=== PATIENT | male | born 1960 | race Caucasian/White ===

== ENCOUNTER 2017-01-14 20:56 | Inpatient (IN) | payer MEDICAID ==
[~2017-01-14] VITALS: Ht 177.8 cm; Wt 136.9 kg
[~2017-01-14 20:56] MED LIST: CEFD300C PO
[2017-01-14] MEDS ORDERED: DILTIAZEM HCL 25 MG/5 ML VIAL IV ONE ×2 (21:15→21:30)
[2017-01-14] MEDS ORDERED: SODIUM CHLORIDE 0.9% FLUSH 10 ML FLUSH IVF PRN (21:15)
[2017-01-14 21:25] VITALS: BP_SYST 123; BP_SYST 146; BP_DIAS 100; BP_DIAS 84; PULSE 117; RESP 33; O2SAT 95
[2017-01-14 21:30] VITALS: O2SAT 97
[2017-01-14] MEDS ORDERED: DILTIAZEM INJ 125 MG in SODIUM CHLORIDE 0.9% INJ 100 ML IV PRN (21:30)
--- NOTE | 2017-01-14 21:54 | RADRPT ---
EXAM DATE/TIME: 01/14/2017 21:39 [place] COMPARISON: No previous studies available for comparison. INDICATIONS : Shortness of breath. MEDICAL HISTORY : Diabetes mellitus type II. SURGICAL HISTORY : Gastric bypass. ENCOUNTER: Initial ACUITY: 1 day PAIN SCORE: 0/10 LOCATION: Bilateral chest FINDINGS: A single view of the chest demonstrates the lungs to be symmetrically aerated without evidence of mas s, infiltrate or effusion. The cardiomediastinal contours are unremarkable. Osseous structures are intact. Prominence of the basilar markings which may be secondary to the large size of the patient an d hypoaeration. CONCLUSION: Prominent basilar markings possibly secondary to patient being quite large and hypoaeration Henrry Whittington MD on January 14, 2017 at 21:51 Board Certified Radiologist. This report was verified electronically.
[2017-01-14 21:55] LABS: AUTOMATED NEUTROPHIL # 9.5 TH/MM3 (1.8-7.7); BASOPHIL % 0.2 % (0.0-2.0); EOSINOPHIL % 0.3 % (0.0-4.0); HEMATOCRIT 51.3 % (39.0-51.0); HEMO FLAGS DIFF FINAL; LYMPH % 10.5 % (9.0-44.0); LYMPHOCYTE # 1.2 TH/MM3 (1.0-4.8); MEAN CELL VOLUME 84.3 FL (80.0-100.0); MEAN CORPUSCULAR HEMOGLOBIN 27.4 PG (27.0-34.0); MEAN CORPUSCULAR HGB CONC 32.5 % (32.0-36.0); MONO % 7.5 % (0.0-8.0); NEUT % 81.5 % (16.0-70.0); PLATELET COUNT 196 TH/MM3 (150-450); RED BLOOD COUNT 6.09 MIL/MM3 (4.50-5.90); RED CELL DISTRIBUTION WIDTH 16.5 % (11.6-17.2); WHITE BLOOD COUNT 11.7 TH/MM3 (4.0-11.0)
[2017-01-14 22:05] LABS: APTT (PATIENT) 30.1 SEC (24.3-30.1); INTERNATIONAL NORMALIZED RATIO 1.4 RATIO; PROTHROMBIN TIME - PATIENT 15.3 SEC (9.8-11.6)
[2017-01-14 22:20] LABS: BICARBONATE 30.3 MEQ/L (21.0-32.0); MAGNESIUM 1.8 MG/DL (1.5-2.5); POTASSIUM 4.3 MEQ/L (3.5-5.1)
[2017-01-14 22:31] VITALS: BP 110/71; PULSE 110; RESP 28; O2SAT 97
[2017-01-14] MEDS ORDERED: RESP: ALBUTEROL 2.5 MG/IPRATROPIUM 0.5 MG NEB (SCH) NEB ONE (23:00)
[2017-01-14 23:02] VITALS: O2SAT 98
[2017-01-14 23:43] LABS: LACTIC ACID GHOST NOT REPORTABLE
[2017-01-14] MEDS ORDERED: ASPIRIN 81 MG CHEW TAB CHEW ONE (23:45)
--- NOTE | 2017-01-14 23:52 | PD ---
HPI Chief Complaint: Respiratory Distress Time Seen by Provider: 21:12 Travel History International Travel<30 days: No Contact w/Intl Traveler<30days: No Traveled to known affect area: No History of Present Illness HPI Patient is a 56-year-old male who comes in complaining of shortness of breath. Patient states this has been going on for "two years," however, his family says he became acutely worse today. He has a history of A. fib and is on blood thinners. He reports being in and out of the hospital recently due to cellulitis of his legs and what sounds like CHF. He is currently on antibiotics. He says he has been taking his medications as directed. He has noticed increased swelling of his legs. He denies chest pain. He does have COPD and he says he used his albuterol this morning. He has not had any fever or chills. PFSH Past Medical History Atrial Fibrillation: Yes Cardiovascular Problems: Yes Congestive Heart Failure: Yes COPD: Yes Hypertension: Yes Past Surgical History Abdominal Surgery: Yes (gastric bypass) Social History Tobacco Use: No Allergies-Medications (Allergen,Severity, Reaction): Coded Allergies: No Known Allergies (Verified , 10/18/03) Reported Meds & Prescriptions Reported Meds & Active Scripts Active Review of Systems Except as stated in HPI: all other systems reviewed are Neg General / Constitutional: No: Fever, Chills HENT: No: Headaches, Lightheadedness Cardiovascular: Positive: Palpitations, No: Chest Pain or Discomfort Respiratory: Positive: Shortness of Breath Gastrointestinal: No: Nausea, Vomiting Musculoskeletal: Positive: Edema, Pain Skin: Positive Lesions Neurologic: No: Syncope Physical Exam Narrative GENERAL: Awake and alert, in moderate respiratory distress. SKIN: Stasis ulcers to both shins. There is some surrounding erythema, but no warmth. HEAD: Atraumatic. Normocephalic. EYES: Pupils equal and round. No scleral icterus. ENT: Mucous membranes pink and moist. NECK: Trachea midline. No JVD. CARDIOVASCULAR: Regular rate and rhythm. No murmur appreciated. RESPIRATORY: Kidney, accessory muscle use. No wheezes on the left side. Breath sounds equal bilaterally. GASTROINTESTINAL: Abdomen soft, non-tender, nondistended. MUSCULOSKELETAL: No obvious deformities. No clubbing. No cyanosis. 2+ pitting edema bilateral lower extremities. NEUROLOGICAL: Awake and alert. No obvious cranial nerve deficits. Motor grossly within normal limits. Normal speech. PSYCHIATRIC: Appropriate mood and affect; insight and judgment normal. Data Data Last Documented VS Vital Signs Date Time Temp Pulse Resp B/P (MAP) Pulse Ox O2 Delivery O2 Flow Rate FiO2 01/14/17 23:57 97 Nasal Cannula 3.00 01/14/17 23:02 30 01/14/17 22:31 110 28 110/71 (84) Orders Orders Electrocardiogram (01/14/17 21:12) Basic Metabolic Panel (Bmp) (01/14/17 21:12) B-Type Natriuretic Peptide (01/14/17 21:12) Ckmb (Isoenzyme) Profile (01/14/17 21:12) Complete Blood Count With Diff (01/14/17 21:12) Magnesium (Mg) (01/14/17 21:12) Prothrombin Time / Inr (Pt) (01/14/17 21:12) Act Partial Throm Time (Ptt) (01/14/17 21:12) Troponin I (01/14/17 21:12) Chest, Single Ap (01/14/17 21:12) Ecg Monitoring (01/14/17 21:12) Bilateral Bp Monitoring (01/14/17 21:12) Iv Access Insert/Monitor (01/14/17 21:12) Oximetry (01/14/17 21:12) Oxygen Administration (01/14/17 21:12) Sodium Chloride 0.9% Flush (Ns Flush) (01/14/17 21:15) Diltiazem Inj (Cardizem Inj) (01/14/17 21:15) Lactic Acid Sepsis Protocol (01/14/17 21:15) Blood Culture (01/14/17 21:15) Diltiazem Inj (Cardizem Inj) (01/14/17 21:30) Vital Signs (Adult) Q15MX4,Q4H (01/14/17 21:28) Portfolio Analyst / Telemetry GEORGE.Q8H (01/14/17 21:28) Cardiac Rhythm GEORGE.Q8H (01/14/17 21:28) Notify Dr: Other (01/14/17 21:28) Diltiazem Inj (Cardizem Inj) (01/14/17 21:30) Resp Bipap / Cpap Non Invas Vt (01/14/17 ) Electrocardiogram (01/14/17 21:49) Albuterol-Ipratropium Neb (Duoneb Neb) (01/14/17 23:00) Aspirin Chew (Aspirin Chew) (01/14/17 23:45) Admit Order (Ed Use Only) (01/14/17 ) Vital Signs (Adult) Q1H (01/14/17 23:55) Activity Bed Rest (01/14/17 23:55) Labs Laboratory Tests Test 01/14/17 21:10 White Blood Count 11.7 TH/MM3 Red Blood Count 6.09 MIL/MM3 Hemoglobin 16.7 GM/DL Hematocrit 51.3 % Mean Corpuscular Volume 84.3 FL Mean Corpuscular Hemoglobin 27.4 PG Mean Corpuscular Hemoglobin Concent 32.5 % Red Cell Distribution Width 16.5 % Platelet Count 196 TH/MM3 Mean Platelet Volume 9.0 FL Neutrophils (%) (Auto) 81.5 % Lymphocytes (%) (Auto) 10.5 % Monocytes (%) (Auto) 7.5 % Eosinophils (%) (Auto) 0.3 % Basophils (%) (Auto) 0.2 % Neutrophils # (Auto) 9.5 TH/MM3 Lymphocytes # (Auto) 1.2 TH/MM3 Monocytes # (Auto) 0.9 TH/MM3 Eosinophils # (Auto) 0.0 TH/MM3 Basophils # (Auto) 0.0 TH/MM3 CBC Comment DIFF FINAL Differential Comment Prothrombin Time 15.3 SEC Prothromb Time International Ratio 1.4 RATIO Activated Partial Thromboplast Time 30.1 SEC Blood Urea Nitrogen 19 MG/DL Creatinine 0.98 MG/DL Random Glucose 212 MG/DL Calcium Level 8.9 MG/DL Magnesium Level 1.8 MG/DL Sodium Level 142 MEQ/L Potassium Level 4.3 MEQ/L Chloride Level 105 MEQ/L Carbon Dioxide Level 30.3 MEQ/L Anion Gap 7 MEQ/L Estimat Glomerular Filtration Rate 79 ML/MIN Lactic Acid Level 2.4 mmol/L Total Creatine Kinase 64 U/L Troponin I 0.14 NG/ML B-Type Natriuretic Peptide 655 PG/ML MDM Medical Decision Making Medical Screen Exam Complete: Yes Emergency Medical Condition: Yes Medical Record Reviewed: Yes Interpretation(s) ECG shows A. fib with RVR at 150. Differential Diagnosis ACS versus A. fib versus electrolyte abnormality versus COPD exacerbation Narrative Course Patient is a 56-year-old male comes in due to shortness of breath. Patient is obviously in respiratory distress on arrival. Was found to be in A. fib with RVR. IV was established, patient was connected to the catheter builder. Patient was given Cardizem with improvement of his rate. His right started to go back up, given a second bolus of Cardizem and started on a Cardizem drip. Patient also started on BiPAP. His breathing and pulse rate improved with his medications and BiPAP. Labs show a troponin of 0.14. Patient is already on blood thinners. He was given aspirin. Given 1 DuoNeb through the BiPAP. He'll be admitted for further management. Critical Care Narrative Aggregate critical care time was 40 minutes. Time to perform other separately billable procedures was not included in the critical care time. My time did not include minutes spent treating any other patients simultaneously or on activities that did not directly contribute to the patient's treatment. The services I provided to this patient were to treat and/or prevent clinically significant deterioration that could result in: Serious illness or I provided critical care services requiring my management, as noted below: Chart data review, documentation time, medication orders and management, vital sign assessments/reviewing monitor data, ordering and reviewing lab tests, ordering and interpreting/reviewing x-rays and diagnostic studies, care of the patient and discussion of the patient with the admitting physicians. Diagnosis Primary Impression: Atrial fibrillation with RVR Additional Impressions: COPD exacerbation Respiratory distress Elevated troponin Admitting Information Admitting Physician Requests: Admit Hilda Hernandez MD Jan 14, 2017 23:52
[2017-01-14 23:57] VITALS: O2SAT 97
[2017-01-15] VITALS (15 sets, daily range): BP systolic 96–124; BP diastolic 57–78; PULSE 69–94; RESP 19–25; TEMP 97.5–98.2; O2SAT 93–98
[2017-01-15] MEDS ORDERED: SODIUM CHLORIDE 0.9% FLUSH 10 ML FLUSH IV FLUSH PRN (00:15)
[2017-01-15] MEDS ORDERED: NALOXONE HCL 0.4 MG/ML AMP IV PUSH PRN (00:15)
[2017-01-15] MEDS ORDERED: FURO40TA PO (00:33)
[2017-01-15] MEDS ORDERED: POTA10TA2 PO (00:33)
[2017-01-15] MEDS ORDERED: XARE20TA PO (00:33)
[2017-01-15] MEDS ORDERED: HUMA100I3 SQ (00:33)
[2017-01-15] MEDS ORDERED: ASPI-110 PO (00:33)
[2017-01-15] MEDS ORDERED: IPRA0.02 NEB (00:33)
[2017-01-15] MEDS ORDERED: ALBU0.08 INH (00:33)
[2017-01-15] MEDS ORDERED: NITR1SUB3 SL (00:33)
[2017-01-15] MEDS ORDERED: METO100T PO (00:33)
[2017-01-15] MEDS ORDERED: ADVA250A INH (00:33)
[2017-01-15] MEDS ORDERED: DOXY1TAB13 PO (00:35)
--- NOTE | 2017-01-15 00:39 | HHI.HP ---
HPI Service [facility] Primary Care Physician Gentry Alexandra D.O. Admission Diagnosis Afib with RVR, COPD exacerbation, troponin elevated Diagnoses: (1) Atrial fibrillation with RVR (2) COPD exacerbation Chief Complaint: chest pain and shortness of breath Travel History International Travel<30 Days: No Contact w/Intl Traveler <30 Da: No Traveled to Known Affected Are: No History of Present Illness Written by Tatum Miramontes, acting as scribe for Dr. Gilmore on 01/15/17 at 00:37. The patient came into ED in severe respiratory distress and was wheezing on presentation and placed temporarily on BiPAP in ED. He is seen in ER on [place] with improvement in symptoms. The patient was at [facility] in [place] for 4 days for CHF/pneumonia, was discharged 3 days ago. He states he had chest pain, palpitations this morning. The pain radiated down his arms and was accompanied by diaphoresis and shortness of breath. He reports severe dyspnea with minimal exertion. He states he was wheezing all day with "some" cough and mucous production. He reports bilateral lower extremity pain and swelling with bilateral chronic johnson wounds and reddish discoloration from mid-johnson to feet- MRSA +. The patient reports having an IVC filter placed. He says he was given antibiotics at [facility]. Attempted Thoracentesis at [facility] 2 days ago but not enough fluid per patient. He reports nausea and diarrhea x 2 episodes since yesterday. He denies abdominal pain. The patient states he doesn't know what his EF is. records from [facility] show 01/06/17 imaging results - CT PA with no PE, moderate to large right pleural effusion, CXR with pulmonary edema - no echocardiogram noted Review of Systems Except as stated in HPI: all other systems reviewed are Neg Past Family Social History Past Medical History Type 2 DM, insulin treated CHF Atrial fibrillation on Xarelto COPD KATHERINE Right DVT Chronic ulcers bilateral lower extremities - + MRSA PE Aortic aneurysm Denies CAD, liver problems, kidney problems, CVA, seizures, thyroid problems, or prostate problems . Past Surgical History Gastric bypass in the 80's Cardiac catheterization with no coronary stenosis . Reported Medications Reported Meds & Active Scripts Active Reported Doxycycline Monohydrate (Doxycycline (Monohydrate)) 100 Mg Tab 100 Mg PO BID Ipratropium Neb (Ipratropium [place]) 0.5 Mg/2.5 Ml Amp 0.5 Mg NEB QID NEB PRN Albuterol Neb (Albuterol Sulfate) 2.5 Mg/3 Ml Neb 2.5 Mg INH QID NEB albuterol-ibratropium Humalog Kwikpen Pen Inj (Insulin Lispro (Human) Inj) 300 Unit/3 Ml Pen 15 Units SQ TIDAC Aspirin 81 (Aspirin) 81 Mg Tabdr 81 Mg PO DAILY Advair Diskus Inh (Fluticasone-Salmeterol Inh) 250-50 Mcg/Blist Aer 1 Puff INH BID Rinse mouth after use. Nitroglycerin SL (Nitroglycerin) 0.4 Mg Subl 0.4 Mg SL DIRECTED PRN ONE TABLET UNDER THE TONGUE NEEDED FOR CHEST PAIN, MAY REPEAT EVERY FIVE MINUTES FOR A TOTAL OF 3 DOSES OR CALL 911 IF NO RELIEF Metoprolol Tartrate 100 Mg Tab 100 Mg PO BID Potassium Chloride ER (Potassium Chloride) 10 Meq Tab 10 Meq PO DAILY Xarelto (Rivaroxaban) 20 Mg Tab 20 Mg PO DAILY Cefdinir 300 Mg Cap 300 Mg PO BID 10 Days Furosemide 40 Mg Tab 40 Mg PO BID Allergies: Coded Allergies: No Known Allergies (Verified , 10/18/03) Active Ordered Medications Current Medications Sodium Chloride (NS Flush) 2 ml UNSCH PRN IVF FLUSH AFTER USING IV ACCESS Last administered on 01/14/17 22:25; Start 01/14/17 at 21:15; Stop 01/15/17 at 00 :10; Status DC Diltiazem HCl (Cardizem Inj) 20 mg ONCE ONCE IV Last administered on 21:22; Start 01/14/17 at 21:15; Stop 01/14/17 at 21:16; Status DC Diltiazem HCl (Cardizem Inj) 30 mg ONCE ONCE IV Last administered on 21:25; Start 01/14/17 at 21:30; Stop 01/14/17 at 21:31; Status DC Diltiazem HCl 125 mg/Sodium Chloride 125 ml @ 5 mls/hr TITRATE PRN IV Tachycardia Last administered on 01/14/17t 22:25; Start 01/14/17 at 21:30 Albuterol/ Ipratropium (Duoneb Neb) 1 ampule ONCE ONCE NEB Last administered on 01/14/17t 23:00; Start 01/14/17 at 23:00; Stop 01/14/17 at 23:01; Status DC Aspirin (Aspirin Chew) 324 mg ONCE ONCE CHEW ; Start 01/14/17 at 23:45; Stop 01/14/17 at 23:46; Status DC Sodium Chloride (NS Flush) 2 ml UNSCH PRN IV FLUSH FLUSH AFTER USING IV ACCESS ; Start 01/15/17 at 00:15 Sodium Chloride (NS Flush) 2 ml BID IV FLUSH ; Start 01/15/17 at 09:00 Naloxone HCl (Narcan Inj) 0.4 mg UNSCH PRN IV PUSH SEE LABEL COMMENTS; Start 01/15/17 at 00:15 Albuterol/ Ipratropium (Duoneb Neb) 1 ampule Q6HR NEB NEB ; Start 01/15/17 at 04:00 Albuterol/ Ipratropium (Duoneb Neb) 1 ampule Q2HR NEB PRN NEB wheezing; Start 01/15/17 at 00:15 . Family History Mother with diabetes, hypertension Father with OH - 1st one age 32-33 y/o 2nd OH age 36 - 27 y/o, diabetes, right leg DVT, age 42 y/o . Social History Alcohol: Denies heavy drinking Alcohol: Denies drug abuse Tobacco: smokes cigarettes 1/2 PPD . Physical Exam Vital Signs Vital Signs Date Time Temp Pulse Resp B/P (MAP) Pulse Ox O2 Delivery O2 Flow Rate FiO2 01/14/17 23:57 97 Nasal Cannula 3.00 01/14/17 23:02 98 30 01/14/17 22:31 110 28 110/71 (84) 97 BiPAP 01/14/17 22:25 111 135/84 01/14/17 21:30 97 30 01/14/17 21:25 95 Nasal Cannula 2.00 01/14/17 21:25 117 33 146/100 (115) 95 Nasal Cannula 2.00 123/84 (97) Physical Exam GENERAL: This is a morbidly obese male patient, in no apparent distress. SKIN: No rashes. Bilateral lower extremities erythematous from mid johnson to feet , multiple chronic-appearing wounds bilateral shins. HEAD: Atraumatic. Normocephalic. No temporal or scalp tenderness. EYES: No scleral icterus. No injection or drainage. ENT: Nose without bleeding, purulent drainage. Airway patent. NECK: Trachea midline. No JVD or lymphadenopathy. Supple, nontender, no meningeal signs. CARDIOVASCULAR: Irregularly irregular without murmurs, gallops, or rubs. 3+ edema bilateral lower extremities. RESPIRATORY: Breath sounds diminished, equal bilaterally. No wheezes, rales, or rhonchi. GASTROINTESTINAL: Abdomen soft, non-tender, nondistended. No guarding. MUSCULOSKELETAL: Extremities without clubbing, cyanosis, or edema. No calf tenderness. NEUROLOGICAL: Awake and alert. Motor and sensory grossly within normal limits. Normal speech. . Laboratory Laboratory Tests Test 01/14/17 21:10 White Blood Count 11.7 Red Blood Count 6.09 Hemoglobin 16.7 Hematocrit 51.3 Mean Corpuscular Volume 84.3 Mean Corpuscular Hemoglobin 27.4 Mean Corpuscular Hemoglobin Concent 32.5 Red Cell Distribution Width 16.5 Platelet Count 196 Mean Platelet Volume 9.0 Neutrophils (%) (Auto) 81.5 Lymphocytes (%) (Auto) 10.5 Monocytes (%) (Auto) 7.5 Eosinophils (%) (Auto) 0.3 Basophils (%) (Auto) 0.2 Neutrophils # (Auto) 9.5 Lymphocytes # (Auto) 1.2 Monocytes # (Auto) 0.9 Eosinophils # (Auto) 0.0 Basophils # (Auto) 0.0 CBC Comment DIFF FINAL Differential Comment Prothrombin Time 15.3 Prothromb Time International Ratio 1.4 Activated Partial Thromboplast Time 30.1 Blood Urea Nitrogen 19 Creatinine 0.98 Random Glucose 212 Calcium Level 8.9 Magnesium Level 1.8 Sodium Level 142 Potassium Level 4.3 Chloride Level 105 Carbon Dioxide Level 30.3 Anion Gap 7 Estimat Glomerular Filtration Rate 79 Lactic Acid Level 2.4 Total Creatine Kinase 64 Troponin I 0.14 B-Type Natriuretic Peptide 655 Date/Time Source Procedure Growth Status 01/14/17 21:30 Blood Peripheral Aerobic Blood Culture Pending Received 01/14/17 21:30 Blood Peripheral Anaerobic Blood Culture Pending Received Result Diagram: 01/14/17210901/14/172109 Imaging Last Impressions Chest X-Ray 01/14/172111 Signed Impressions: Service Date/Time: December 21:39 - CONCLUSION: Prominent basilar markings possibly secondary to patient being quite large and hypoaeration Henrry Whittington MD . Capgopi VTE Risk Assessment Caprini VTE Risk Assessment: Mod/High Risk (score >= 2) Caprini Risk Assessment Model Point Value = 1 Point Value = 2 Point Value = 3 Point Value = 5 Age 41-60 Minor surgery BMI > 25 kg/m2 Swollen legs Varicose veins or History of unexplained or recurrent spontaneous Oral contraceptives or hormone replacement Sepsis (< 1 month) Serious lung disease, including pneumonia (< 1 month) Abnormal pulmonary function Acute myocardial infarction Congestive heart failure (< 1 month) History of inflammatory bowel disease Medical patient at bed rest Age 61-74 Arthroscopic surgery Major open surgery (> 45 min) Laparoscopic surgery (> 45 min) Malignancy Confined to bed (> 72 hours) Immobilizing plaster cast Central venous access Age >= 75 History of VTE Family history of VTE Factor V Leiden Prothrombin [id number] Lupus anticoagulant Anticardiolipin antibodies Elevated serum homocysteine Heparin-induced thrombocytopenia Other congenital or acquired thrombophilia Stroke (< 1 month) Elective arthroplasty Hip, pelvis, or leg fracture Acute spinal cord injury (< 1 month) Prophylaxis Regimen Total Risk Factor Score Risk Level Prophylaxis Regimen 0-1 Low Early ambulation 2 Moderate Order ONE of the following: *Sequential Compression Device (SCD) *Heparin 5000 units SQ BID 3-4 Higher Order ONE of the following medications: *Heparin 5000 units SQ TID *Enoxaparin/Lovenox 40 mg SQ daily (WT < 150 kg, CrCl > 30 mL/min) *Enoxaparin/Lovenox 30 mg SQ daily (WT < 150 kg, CrCl > 10-29 mL/min) *Enoxaparin/Lovenox 30 mg SQ BID (WT < 150 kg, CrCl > 30 mL/min) AND/OR *Sequential Compression Device (SCD) 5 or more Highest Order ONE of the following medications: *Heparin 5000 units SQ TID (Preferred with Epidurals) *Enoxaparin/Lovenox 40 mg SQ daily (WT < 150 kg, CrCl > 30 mL/min) *Enoxaparin/Lovenox 30 mg SQ daily (WT < 150 kg, CrCl > 10-29 mL/min) *Enoxaparin/Lovenox 30 mg SQ BID (WT < 150 kg, CrCl > 30 mL/min) AND *Sequential Compression Device (SCD) Assessment and Plan Problem List: (1) Acute on chronic congestive heart failure ICD Code: I50.9 - Heart failure, unspecified (2) COPD exacerbation ICD Code: J44.1 - Chronic obstructive pulmonary disease with (acute) exacerbation Status: Acute (3) Elevated troponin ICD Code: R74.8 - Abnormal levels of other serum enzymes Status: Acute (4) Atrial fibrillation with RVR ICD Code: I48.91 - Unspecified atrial fibrillation Status: Acute (5) Type 2 diabetes mellitus ICD Code: E11.9 - Type 2 diabetes mellitus without complications Status: Chronic (6) Wounds, multiple open, lower extremity ICD Code: S81.809A - Unspecified open wound, unspecified lower leg, initial encounter Status: Chronic Assessment and Plan 56 y/o male who presented to hospital with severe respiratory distress and atrial fibrillation with RVR. Acute on Chronic CHF - continuous cardiac telemetry to monitor cardiac structure and function - BNP - 655 - monitor I and Os - echocardiogram to evaluate cardiac structure and function COPD exacerbation - required Bi-PAP initially - supplemental oxygen titrated to maintain oxygen saturation > 92% - Duonebulizers q6h ATC and q2h PRN wheezing Troponin I elevation - likely secondary to CHF and afib with RVR but concern for ACS given significant risk factors - serial cardiac enzymes and EKGs to r/o ACS - will keep NPO - consult cardiology - heparin gtt for anticoagulation Atrial fibrillation with RVR - Cardizem drip for rate control - continue home medications Type 2 DM - Accuchecks AC and HS - hold low dose sliding scale insulin for now while NPO - monitor blood glucose levels and adjust treatment as indicated - hypoglycemia protocol Bilateral lower extremity chronic wounds - consult wound care physician - + MRSA - contact isolation - continue antibiotics given to patient on discharge from [facility] (10 day course should be completed 01/22/17) DVT prophylaxis - heparin gtt for now . Discussed Condition With ER physician and patient . Physician Certification 2 Midnight Certification Type: Admission for Inpatient Services Order for Inpatient Services The services are ordered in accordance with Medicare regulations or non- Medicare payer requirements, as applicable. In the case of services not specified as inpatient-only, they are appropriately provided as inpatient services in accordance with the 2-midnight benchmark. Estimated LOS (days): 3 days is the estimated time the patient will need to remain in the hospital, assuming treatment plan goals are met and no additional complications. Post-Hospital Plan: SNF Problem Qualifiers (1) Type 2 diabetes mellitus: Tatum Miramontes Jan 15, 2017 00:39
[2017-01-15] MEDS ORDERED: GLUCAGON 1 MG/ML VIAL OTHER PRN ×2 (01:30→13:15)
[2017-01-15] MEDS ORDERED: DEXTROSE 50% IN WATER 50 ML VIAL(D50) IV PUSH PRN ×2 (01:30→13:15)
[2017-01-15] MEDS ORDERED: FUROSEMIDE 40 MG/4 ML VIAL IV PUSH ONE (01:30)
[2017-01-15] MEDS: RESP: ALBUTEROL 2.5 MG/IPRATROPIUM 0.5 MG NEB (SCH) NEB ×4 (02:46→21:07)
[2017-01-15] MEDS: HEPARIN-D5W 25,000 U/250 ML 250 ML IV PRN (03:19)
[2017-01-15] MEDS: CLINDAMYCIN 150 MG CAP PO SCH ×4 (06:17→23:28)
[2017-01-15] MEDS ORDERED: HEPARIN SODIUM - IV 10,000 UNITS/10 ML VIAL IV PUSH PRN (07:15)
[2017-01-15] MEDS: ASPIRIN EC 81 MG TABEC PO SCH (08:38)
[2017-01-15] MEDS: POTASSIUM CHLORIDE 10 MEQ CONTROLLED RELEASE TAB PO SCH (08:38)
[2017-01-15] MEDS: LACTOBACILLUS ACIDOPHILUS TAB PO SCH ×3 (08:38→17:30)
[2017-01-15] MEDS: FUROSEMIDE 40 MG/4 ML VIAL IV PUSH SCH ×2 (08:38→17:30)
[2017-01-15] MEDS: BUDESONIDE-FORMOTEROL 160/4.5 MCG INHALER INH SCH ×2 (08:38→21:30)
[2017-01-15] MEDS: SODIUM CHLORIDE 0.9% FLUSH 10 ML FLUSH IV FLUSH SCH ×2 (08:39→21:29)
[2017-01-15] MEDS ORDERED: CEFDINIR 300 MG PO SCH (09:00)
[2017-01-15] MEDS ORDERED: DOXYCYCLINE 100 MG PO SCH (09:00)
[2017-01-15] MEDS ORDERED: NON-FORMULARY DRUG (Fluticasone-Salmeterol Inh (Advair Diskus Inh) 1 PUFF) INH SCH (09:00)
[2017-01-15] MEDS ORDERED: METOPROLOL TARTRATE 100 MG TAB PO SCH (09:00)
--- NOTE | 2017-01-15 09:12 | HHI.PR ---
Subjective Remarks Patient seen in follow up for acute respiratory failure, CHF, afib with RVR, bilateral lower extremity cellulitis and elevated troponin. Patient reports he is feeling better. Breathing more comfortably, on nasal cannula. No chest pain Objective Vitals Vital Signs Date Time Temp Pulse Resp B/P (MAP) Pulse Ox O2 Delivery O2 Flow Rate FiO2 01/15/17 07:00 94 Nasal Cannula 3.00 01/15/17 04:15 97.5 94 24 124/74 (91) 93 01/15/17 04:10 01/15/17 04:00 94 01/15/17 04:00 94 01/15/17 04:00 93 Nasal Cannula 2.00 01/14/17 23:57 97 Nasal Cannula 3.00 01/14/17 23:02 98 30 01/14/17 22:31 110 28 110/71 (84) 97 BiPAP 01/14/17 22:25 111 135/84 01/14/17 21:30 97 30 01/14/17 21:25 95 Nasal Cannula 2.00 01/14/17 21:25 117 33 146/100 (115) 95 Nasal Cannula 2.00 123/84 (97) 01/14/17 21:10 Nasal Cannula I/O 01/14/17 01/14/17 01/14/17 01/15/17 01/15/17 01/15/17 07:00 15:00 23:00 07:00 15:00 23:00 Intake Total 66 ml Output Total 550 ml Balance -484 ml Intake Oral 0 ml IV Total 66 ml Output Urine Total 550 ml Result Diagram: 01/14/17210901/14/172109 Imaging Last Impressions Chest X-Ray 01/14/172111 Signed Impressions: Service Date/Time: December 21:39 - CONCLUSION: Prominent basilar markings possibly secondary to patient being quite large and hypoaeration Henrry Whittington MD Objective Remarks GENERAL: Morbidly obese male in no acute distress SKIN: Bilateral lower extremities with multiple shallow ulcers involving the shins, surrounding cellulitis bilaterally. No active purulent drainage. CARDIOVASCULAR: Normal rate and regular rhythm without murmurs, gallops, or rubs. RESPIRATORY: Poor air movement. Diffuse expiratory wheezing bilaterally. GASTROINTESTINAL: Abdomen morbidly obese. Normal active bowel sounds MUSCULOSKELETAL: Bilateral lower extremity with 3+ edema up to the thighs. NEURO: Alert & Oriented x4 to person, place, time, situation. Moves all ext x4 PSYCH: Appropriate mood and affect. A/P Problem List: (1) Acute on chronic congestive heart failure ICD Code: I50.9 - Heart failure, unspecified (2) COPD exacerbation ICD Code: J44.1 - Chronic obstructive pulmonary disease with (acute) exacerbation Status: Acute (3) Elevated troponin ICD Code: R74.8 - Abnormal levels of other serum enzymes Status: Acute (4) Atrial fibrillation with RVR ICD Code: I48.91 - Unspecified atrial fibrillation Status: Acute (5) Type 2 diabetes mellitus ICD Code: E11.9 - Type 2 diabetes mellitus without complications Status: Chronic (6) Wounds, multiple open, lower extremity ICD Code: S81.809A - Unspecified open wound, unspecified lower leg, initial encounter Status: Chronic Assessment and Plan In summary this is a 56-year-old male who was recently discharged from another hospital after he was treated for cellulitis, CHF, possible pneumonia. The patient is admitted to [place] for respiratory distress. He was found to be in A. fib with RVR, CHF, and elevated troponin. He also has cellulitis involving bilateral lower extremities. Acute on Chronic CHF - continuous cardiac telemetry to monitor cardiac structure and function - BNP - 655 - monitor I and Os - Continue Lasix 40 mg IV twice a day. Echocardiogram to evaluate cardiac structure and function COPD exacerbation: Obesity related resp insufficiency. - required Bi-PAP initially - supplemental oxygen titrated to maintain oxygen saturation > 92% - Duonebulizers q6h scheduled and q2h PRN wheezing. Hold off steroid for now since he is improving. Troponin I elevation -Could be demand ischemia secondary to CHF and afib with RVR but concern for ACS given significant risk factors -Cardiology consulted - heparin gtt for anticoagulation Atrial fibrillation with RVR - Cardizem drip for rate control - DC metoprolol given COPD. Start oral Cardizem and wean off drip as tolerated. Further plans per Cardiology. Type 2 DM - Accuchecks with SSI - hypoglycemia protocol Bilateral lower extremity chronic wounds and Cellulitis. - Wound care physician consulted - + MRSA - contact isolation - continue antibiotics given to patient on discharge from [facility], may need longer course. Follow progress. - Patient will benefit from outpatient wound care when discharged. DVT prophylaxis - heparin gtt for now Discharge Planning Can transfer to [facility] Problem Qualifiers (1) Type 2 diabetes mellitus: Abdirashid Lantigua MD Jan 15, 2017 09:11
--- NOTE | 2017-01-15 09:24 | PD.CONS ---
HPI Service cardiology Consult Requested By Reason for Consult chf, afib RVR Primary Care Physician Gentry Alexandra D.O. History of Present Illness This is a 56 yo obese WM with COPD, diabetes, chronic afib and bilateral lower leg wounds who presents with acute dyspnea and wheeze. Patient was recently admitted to [facility] for CHF and pleural effusion, discharged a few days ago. 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 Patient complaining of SOB at rest with wheeze, dyspnea on mild exertion, bilateral lower leg edema with MRSA+ wounds. He denies chest pain. troponins elevated, ECG shows afib. Current HR 90. review of tele shows 8 beats of Vtach. Review of Systems Consitutional: DENIES: Fever, Chills, Weight gain Respiratory: DENIES: Snoring, Sputum production Cardiovascular: DENIES: Chest pain, Palpitations, Syncope Gastrointestinal: DENIES: Nausea, Vomiting, Change in bowel habits, Reflux, Bloody stools, Melena Past Family Social History Allergies: Coded Allergies: No Known Allergies (Verified , 10/18/03) Past Medical History Type 2 DM, insulin treated CHF Atrial fibrillation on Xarelto COPD KATHERINE Right DVT Chronic ulcers bilateral lower extremities - + MRSA PE Aortic aneurysm Denies CAD, liver problems, kidney problems, CVA, seizures, thyroid problems, or prostate problems . Past Surgical History Gastric bypass in the Cardiac catheterization with no coronary stenosis . Reported Medications Reported Meds & Active Scripts Active Reported Doxycycline Monohydrate (Doxycycline (Monohydrate)) 100 Mg Tab 100 Mg PO BID Ipratropium Neb (Ipratropium [place]) 0.5 Mg/2.5 Ml Amp 0.5 Mg NEB QID NEB PRN Albuterol Neb (Albuterol Sulfate) 2.5 Mg/3 Ml Neb 2.5 Mg INH QID NEB albuterol-ibratropium Humalog Kwikpen Pen Inj (Insulin Lispro (Human) Inj) 300 Unit/3 Ml Pen 15 Units SQ TIDAC Aspirin 81 (Aspirin) 81 Mg Tabdr 81 Mg PO DAILY Advair Diskus Inh (Fluticasone-Salmeterol Inh) 250-50 Mcg/Blist Aer 1 Puff INH BID Rinse mouth after use. Nitroglycerin SL (Nitroglycerin) 0.4 Mg Subl 0.4 Mg SL DIRECTED PRN ONE TABLET UNDER THE TONGUE NEEDED FOR CHEST PAIN, MAY REPEAT EVERY FIVE MINUTES FOR A TOTAL OF 3 DOSES OR CALL 911 IF NO RELIEF Metoprolol Tartrate 100 Mg Tab 100 Mg PO BID Potassium Chloride ER (Potassium Chloride) 10 Meq Tab 10 Meq PO DAILY Xarelto (Rivaroxaban) 20 Mg Tab 20 Mg PO DAILY Cefdinir 300 Mg Cap 300 Mg PO BID 10 Days Furosemide 40 Mg Tab 40 Mg PO BID Active Ordered Medications Current Medications Medications (Trade) Dose Ordered Sig/Jim Route Start Time Stop Time Status Last Admin Diltiazem HCl 125 mg/Sodium Chloride 125 ml @ 5 mls/hr TITRATE PRN IV 01/14/17 21:30 01/14/17 22:25 (NS Flush) 2 ml UNSCH PRN IV FLUSH 01/15/17 00:15 (NS Flush) 2 ml BID IV FLUSH 01/15/17 09:00 01/15/17 08:39 (Narcan Inj) 0.4 mg UNSCH PRN IV PUSH 01/15/17 00:15 (Duoneb Neb) 1 ampule Q6HR NEB NEB 01/15/17 04:00 01/15/17 02:46 (Duoneb Neb) 1 ampule Q2HR NEB PRN NEB 01/15/17 00:15 (Heparin Inj) 5,000 units UNSCH PRN IV PUSH 01/15/17 07:15 (Heparin Inj) 2,500 units UNSCH PRN IV PUSH 01/15/17 07:15 Heparin Sodium/ Dextrose 250 ml @ 10 mls/hr TITRATE PRN IV 01/15/17 01:15 01/15/17 03:19 (Lasix Inj) 40 mg BID@09,18 IV PUSH 01/15/17 09:00 01/15/17 08:38 (Lactinex) 1 tab TID PO 01/15/17 09:00 01/15/17 08:38 (Ecotrin Ec) 81 mg DAILY PO 01/15/17 09:00 01/15/17 08:38 (Lopressor) 100 mg BID PO 01/15/17 09:00 01/15/17 08:38 (KCl) 10 meq DAILY PO 01/15/17 09:00 01/15/17 08:38 (D50w (Vial) Inj) 50 ml UNSCH PRN IV PUSH 01/15/17 01:30 (Glucagon Inj) 1 mg UNSCH PRN OTHER 01/15/17 01:30 (Symbicort 160-4.5 Inh) 2 puff BID INH 01/15/17 09:00 01/15/17 08:38 (Cleocin) 450 mg Q6HR PO 01/15/17 06:00 01/15/17 06:17 Family History Past Medical History Type 2 DM, insulin treated CHF Atrial fibrillation on Xarelto COPD KATHERINE Right DVT Mother with diabetes, hypertension Father with [place] - 1st one age 32-33 y/o 2nd [place] age 36 - 27 y/o, diabetes, right leg DVT, age 42 y/o Social History Alcohol: Denies heavy drinking Alcohol: Denies drug abuse Tobacco: smokes cigarettes 1/2 PPD Physical Exam Vital Signs Vital Signs Date Time Temp Pulse Resp B/P (MAP) Pulse Ox O2 Delivery O2 Flow Rate FiO2 01/15/17 07:00 94 Nasal Cannula 3.00 01/15/17 04:15 97.5 94 24 124/74 (91) 93 01/15/17 04:10 01/15/17 04:00 94 01/15/17 04:00 94 01/15/17 04:00 93 Nasal Cannula 2.00 01/14/17 23:57 97 Nasal Cannula 3.00 01/14/17 23:02 98 30 01/14/17 22:31 110 28 110/71 (84) 97 BiPAP 01/14/17 22:25 111 135/84 01/14/17 21:30 97 30 01/14/17 21:25 95 Nasal Cannula 2.00 01/14/17 21:25 117 33 146/100 (115) 95 Nasal Cannula 2.00 123/84 (97) 01/14/17 21:10 Nasal Cannula Physical Exam HEAD: Atraumatic. Normocephalic. EYES: Pupils equal and round. No scleral icterus. ENT: No nasal bleeding or discharge. Mucous membranes pink and moist. NECK: Trachea midline. No JVD. CARDIOVASCULAR: Irregular rate and rhythm, no murmurs RESPIRATORY: bilateral inspiratory and expiratory wheeze GASTROINTESTINAL: Abdomen soft, non-tender, nondistended. MUSCULOSKELETAL: No obvious deformities. bilateral lower legs 2+ edema, anterior wounds, weeping. NEUROLOGICAL: Awake and alert. No obvious cranial nerve deficits. Normal speech. PSYCHIATRIC: Appropriate mood and affect; insight and judgment normal. Laboratory Laboratory Tests Test 01/14/17 21:10 01/15/17 01:55 01/15/17 03:15 White Blood Count 11.7 Red Blood Count 6.09 Hemoglobin 16.7 Hematocrit 51.3 Mean Corpuscular Volume 84.3 Mean Corpuscular Hemoglobin 27.4 Mean Corpuscular Hemoglobin Concent 32.5 Red Cell Distribution Width 16.5 Platelet Count 196 Mean Platelet Volume 9.0 Neutrophils (%) (Auto) 81.5 Lymphocytes (%) (Auto) 10.5 Monocytes (%) (Auto) 7.5 Eosinophils (%) (Auto) 0.3 Basophils (%) (Auto) 0.2 Neutrophils # (Auto) 9.5 Lymphocytes # (Auto) 1.2 Monocytes # (Auto) 0.9 Eosinophils # (Auto) 0.0 Basophils # (Auto) 0.0 CBC Comment DIFF FINAL Differential Comment Prothrombin Time 15.3 Prothromb Time International Ratio 1.4 Activated Partial Thromboplast Time 30.1 Blood Urea Nitrogen 19 Creatinine 0.98 Random Glucose 212 Calcium Level 8.9 Magnesium Level 1.8 Sodium Level 142 Potassium Level 4.3 Chloride Level 105 Carbon Dioxide Level 30.3 Anion Gap 7 Estimat Glomerular Filtration Rate 79 Lactic Acid Level 2.4 1.8 Total Creatine Kinase 64 99 Troponin I 0.14 0.16 B-Type Natriuretic Peptide 655 Date/Time Source Procedure Growth Status 01/14/17 21:30 Blood Peripheral Aerobic Blood Culture Pending Received 01/14/17 21:30 Blood Peripheral Anaerobic Blood Culture Pending Received Result Diagram: 01/14/17210901/14/172109 Imaging Last 24 hours Impressions Chest X-Ray 01/14/172111 Signed Impressions: Service Date/Time: December 21:39 - CONCLUSION: Prominent basilar markings possibly secondary to patient being quite large and hypoaeration Henrry Whittington MD Assessment and Plan Problem List: (1) Respiratory distress ICD Codes: R06.00 - Dyspnea, unspecified Status: Acute (2) Elevated troponin ICD Codes: R74.8 - Abnormal levels of other serum enzymes Status: Acute (3) Atrial fibrillation with RVR ICD Codes: I48.91 - Unspecified atrial fibrillation Status: Acute (4) Acute on chronic congestive heart failure ICD Codes: I50.9 - Heart failure, unspecified Assessment and Plan 56 yo obese WM with chronic afib (anticoagulated on Xarelto) and followed by Dr. Wakefield in the outpatient setting,COPD, diabetes, CHF and bilateral lower leg MRSA+ wounds admitted for acute dyspnea. He was recently discharged from [facility] for CHF and pleural effusion. CHF- acute on chronic, will need to echo to assess EF. If EF reduced he will require heart catheterization; if EF preserved will need lexiscan. troponin elevation- demand mediated vs. ischemic. 8 beat run of Vtach on tele. afib- rate controlled on cardizem gtt. takes Xarelto. COPD- consider stopping metoprolol due to poor respiratory status Brittany Marion Jan 15, 2017 09:24
--- NOTE | 2017-01-15 10:58 | PD.WOU.CON ---
Patient Intake Chief Complaint Bilateral venous stasis ulcerations of both lower extremities Consult Requested by Dr. Gilmore Reason for Consult Evaluation and treatment of wounds of legs Primary Care Physician Gentry Alexandra D.O. History of Present Illness Patient is a 56-year-old diabetic male with congestive heart failure and morbid obesity who presented with shortness of breath and lower extremity edema. From the lower extremity edema he is developed venous stasis ulcerations that are weeping clear fluid. Culture and sensitivity performed at [facility] grew out MRSA. Patient has been on antibiotics for this. Patient is sitting in chair with legs elevated without dressings in place. Patient has a smoking history. Coded Allergies: No Known Allergies (Verified , 10/18/03) Preferred Language to Discuss: Amharic Barriers to Learning: None Teaching Method: Discussion Vital Signs Date Time Temp Pulse Resp B/P (MAP) Pulse Ox O2 Delivery O2 Flow Rate FiO2 01/15/17 10:41 96 Nasal Cannula 3.00 01/15/17 07:00 94 Nasal Cannula 3.00 01/15/17 04:15 97.5 94 24 124/74 (91) 93 01/15/17 04:10 01/15/17 04:00 94 01/15/17 04:00 94 01/15/17 04:00 93 Nasal Cannula 2.00 01/14/17 23:57 97 Nasal Cannula 3.00 01/14/17 23:02 98 30 01/14/17 22:31 110 28 110/71 (84) 97 BiPAP 01/14/17 22:25 111 135/84 01/14/17 21:30 97 30 01/14/17 21:25 95 Nasal Cannula 2.00 01/14/17 21:25 117 33 146/100 (115) 95 Nasal Cannula 2.00 123/84 (97) 01/14/17 21:10 Nasal Cannula Pain scale used: 0-10 numeric scale Pain score: 1 Medications Current Medications Sodium Chloride (NS Flush) 2 ml UNSCH PRN IVF FLUSH AFTER USING IV ACCESS Last administered on 01/14/17 22:25; Start 01/14/17 at 21:15; Stop 01/15/17 at 00 :10; Status DC Diltiazem HCl (Cardizem Inj) 20 mg ONCE ONCE IV Last administered on 21:22; Start 01/14/17 at 21:15; Stop 01/14/17 at 21:16; Status DC Diltiazem HCl (Cardizem Inj) 30 mg ONCE ONCE IV Last administered on 21:25; Start 01/14/17 at 21:30; Stop 01/14/17 at 21:31; Status DC Diltiazem HCl 125 mg/Sodium Chloride 125 ml @ 5 mls/hr TITRATE PRN IV Tachycardia Last administered on 01/14/17 22:25; Start 01/14/17 at 21:30 Albuterol/ Ipratropium (Duoneb Neb) 1 ampule ONCE ONCE NEB Last administered on 01/14/17 23:00; Start 01/14/17 at 23:00; Stop 01/14/17 at 23:01; Status DC Aspirin (Aspirin Chew) 324 mg ONCE ONCE CHEW Last administered on 01/15/17 00:53; Start 01/14/17 at 23:45; Stop 01/14/17 at 23:46; Status DC Sodium Chloride (NS Flush) 2 ml UNSCH PRN IV FLUSH FLUSH AFTER USING IV ACCESS ; Start 01/15/17 at 00:15 Sodium Chloride (NS Flush) 2 ml BID IV FLUSH Last administered on 01/15/17 08 :39; Start 01/15/17 at 09:00 Naloxone HCl (Narcan Inj) 0.4 mg UNSCH PRN IV PUSH SEE LABEL COMMENTS; Start 01/15/17 at 00:15 Albuterol/ Ipratropium (Duoneb Neb) 1 ampule Q6HR NEB NEB Last administered on 01/15/17 10:37; Start 01/15/17 at 04:00 Albuterol/ Ipratropium (Duoneb Neb) 1 ampule Q2HR NEB PRN NEB wheezing; Start 01/15/17 at 00:15 Heparin Sodium (Porcine) (Heparin Inj) 5,000 units UNSCH PRN IV PUSH APTT LESS THAN 25; Start 01/15/17 at 07:15 Heparin Sodium (Porcine) (Heparin Inj) 2,500 units UNSCH PRN IV PUSH APTT 25 TO 39; Start 01/15/17 at 07:15 Heparin Sodium/ Dextrose 250 ml @ 10 mls/hr TITRATE PRN IV Coagulation management Last administered on 01/15/17 03:19; Start 01/15/17 at 01:15 Furosemide (Lasix Inj) 40 mg BID@09,18 IV PUSH Last administered on 01/15/17 08:38; Start 01/15/17 at 09:00 Furosemide (Lasix Inj) 40 mg ONCE ONCE IV PUSH Last administered on 03:15; Start 01/15/17 at 01:30; Stop 01/15/17 at 01:31; Status DC Lactobacillus Acidophilus (Lactinex) 1 tab TID PO Last administered on 08:38; Start 01/15/17 at 09:00 Aspirin (Ecotrin Ec) 81 mg DAILY PO Last administered on 01/15/17 08:38; Start 01/15/17 at 09:00 Metoprolol Tartrate (Lopressor) 100 mg BID PO Last administered on 01/15/17 08:38; Start 01/15/17 at 09:00; Stop 01/15/17 at 10:22; Status DC Potassium Chloride (KCl) 10 meq DAILY PO Last administered on 01/15/17 08:38 ; Start 01/15/17 at 09:00 Non-Formulary Medication 300 mg BID PO ; Start 01/15/17 at 09:00; Stop at 09:00; Status DC Non-Formulary Medication 100 mg BID PO ; Start 01/15/17 at 09:00; Stop at 09:00; Status DC Non-Formulary Medication 1 puff BID INH ; Start 01/15/17 at 09:00; Stop at 09:00; Status DC Dextrose (D50w (Vial) Inj) 50 ml UNSCH PRN IV PUSH HYPOGLYCEMIA-SEE COMMENTS; Start 01/15/17 at 01:30 Glucagon (Glucagon Inj) 1 mg UNSCH PRN OTHER HYPOGLYCEMIA-SEE COMMENTS; Start 01/15/17 at 01:30 Budesonide/ Formoterol Fumarate (Symbicort 160-4.5 Inh) 2 puff BID INH Last administered on 01/15/17 08:38; Start 01/15/17 at 09:00 Clindamycin HCl (Cleocin) 450 mg Q6HR PO Last administered on 01/15/17 06:17 ; Start 01/15/17 at 06:00 Diltiazem HCl (Cardizem) 60 mg QID PO ; Start 01/15/17 at 13:00 Past, Family & Social History Past Medical History PFS Reviewed: Yes Endocrine: REPORTS HX OF: Diabetes mellitus Respiratory: REPORTS HX OF: COPD Cardiovascular: REPORTS HX OF: Coronary artery disease, Heart failure, Hypertension Integumentary: REPORTS HX OF: Other integumentary hx Neurologic: REPORTS HX OF: Peripheral neuropathy Past Surgical History Gastrointestinal: REPORTS HX OF: Other GI surgery Review of Systems Cardiovascular: COMPLAINS OF: Hx CHF / chest pain, Hx hypertension, Swelling legs / ankles Respiratory: COMPLAINS OF: Difficulty breathing Genitourinary: COMPLAINS OF: Renal disease Musculoskeletal: COMPLAINS OF: Leg pain (rest or walk) Integumentary: COMPLAINS OF: Slow to heal after cuts Neurological: COMPLAINS OF: Numbness/tingling Wound Assessment Orientation to: Time, Place, Person Vascular Assessment R Dorsails Pedis: Doppler L Dorsails Pedis: Doppler R Posterior Tibial: Doppler L Posterior Tibial: Doppler Temperature of Left Extremity: Warm Color of Left Extremity: Mottled Sensation of Left Extremity: Diminished Temperature of Right Extremity: Warm Color of Right Extremity: Mottled Sensation of Right Extremity: Diminished Extremities Evaluation: Edema Right, Edema Left Wound Information - Wound One Wound Location: bilateral lower extremity anterior aspect Wound Type: Venous Disease Exudate: Moderate Exudate Type: Serosanguineous Debridement: No Fibrin Amount: Moderate Granulation Tissue Color: Glen Granulation Tissue Texture: Spongy Exposed: No exposed bone, muscle, tendon Eschar: Yes Odor: No Periwound Appearance: FINDINGS: Maceration, Erythema Dressings: Abdominal Pad Dressing Notes: Optifoam Gentle AG Lab and Radiology Results Laboratory Laboratory Tests Test 01/14/17 21:10 White Blood Count 11.7 TH/MM3 Red Blood Count 6.09 MIL/MM3 Hemoglobin 16.7 GM/DL Hematocrit 51.3 % Mean Corpuscular Volume 84.3 FL Mean Corpuscular Hemoglobin 27.4 PG Mean Corpuscular Hemoglobin Concent 32.5 % Red Cell Distribution Width 16.5 % Platelet Count 196 TH/MM3 Mean Platelet Volume 9.0 FL Neutrophils (%) (Auto) 81.5 % Lymphocytes (%) (Auto) 10.5 % Monocytes (%) (Auto) 7.5 % Eosinophils (%) (Auto) 0.3 % Basophils (%) (Auto) 0.2 % Neutrophils # (Auto) 9.5 TH/MM3 Lymphocytes # (Auto) 1.2 TH/MM3 Monocytes # (Auto) 0.9 TH/MM3 Eosinophils # (Auto) 0.0 TH/MM3 Basophils # (Auto) 0.0 TH/MM3 CBC Comment DIFF FINAL Differential Comment Laboratory Tests Test 01/14/17 21:10 01/15/17 01:55 01/15/17 03:15 Blood Urea Nitrogen 19 MG/DL Creatinine 0.98 MG/DL Random Glucose 212 MG/DL Calcium Level 8.9 MG/DL Magnesium Level 1.8 MG/DL Sodium Level 142 MEQ/L Potassium Level 4.3 MEQ/L Chloride Level 105 MEQ/L Carbon Dioxide Level 30.3 MEQ/L Anion Gap 7 MEQ/L Estimat Glomerular Filtration Rate 79 ML/MIN Lactic Acid Level 2.4 mmol/L 1.8 mmol/L Total Creatine Kinase 64 U/L 99 U/L Troponin I 0.14 NG/ML 0.16 NG/ML B-Type Natriuretic Peptide 655 PG/ML Microbiology Date/Time Source Procedure Growth Status 01/14/17 21:30 Blood Peripheral Aerobic Blood Culture Pending Received 01/14/17 21:30 Blood Peripheral Anaerobic Blood Culture Pending Received 01/14/17 21:10 Blood Peripheral Aerobic Blood Culture Pending Received 01/14/17 21:10 Blood Peripheral Anaerobic Blood Culture Pending Received Radiology Last Impressions Chest X-Ray 01/14/172111 Signed Impressions: Service Date/Time: December 21:39 - CONCLUSION: Prominent basilar markings possibly secondary to patient being quite large and hypoaeration Henrry Whittington MD Assessment/Plan Problem List: (1) COPD exacerbation Status: Chronic (2) Type 2 diabetes mellitus Status: Chronic (3) Wounds, multiple open, lower extremity Status: Chronic Additional Plans & Procedures PLAN: Patient was started on Optifoam Gentle AG dressings with light Og bandage wraps. Discussed patient's diabetic diet and low-salt foods to reduce edema. Patient would probably benefit from some diuresis through medicine if medically stable for such. Patient should follow up in wound care center. I offered to have him come to our wound center. He states [place] is closer. Discussed risk of diabetes and edema including amputation and renal failure. Dressings will be done every other day. I will follow him as needed. Thank you for this consult Problem Qualifiers (1) Type 2 diabetes mellitus: Qualified Codes: E11.622 - Type 2 diabetes mellitus with other skin ulcer (2) Wounds, multiple open, lower extremity: Qualified Codes: S81.809A - Unspecified open wound, unspecified lower leg, initial encounter Lobo Cavanaugh DPM Jan 15, 2017 10:58
[2017-01-15 11:02] LABS: APTT (PATIENT) 28.3 SEC (24.3-30.1)
[2017-01-15] MEDS: INSULIN ASPART SUPPLEMENTAL SCALE SQ SCH ×2 (13:28→21:00)
[2017-01-15] MEDS: DILTIAZEM HCL 60 MG TAB PO SCH ×3 (13:31→21:29)
--- NOTE | 2017-01-15 21:22 | EKG ---
Date Performed: 01/15/2017 Time Performed: 03:54:18 PTAGE: 56 years EKG: ATRIAL FIBRILLATION LOW QRS VOLTAGE IN PRECORDIAL LEADS POSSIBLE ANTERIOR MYOCARDIAL INFARC TION ABNORMAL RHYTHM ECG PREVIOUS TRACING : 01/14/2017 21.49 Compared to prior tracing no significant change DOCTOR: Bruce Cisse Interpretating Date/Time 01/15/2017 21:20:17
--- NOTE | 2017-01-15 21:26 | EKG ---
Date Performed: 01/14/2017 Time Performed: 21:49:15 PTAGE: 56 years EKG: ATRIAL FIBRILLATION LOW QRS VOLTAGE IN PRECORDIAL LEADS POSSIBLE ANTERIOR MYOCARDIAL INFARC TION ABNORMAL RHYTHM ECG PREVIOUS TRACING : 01/14/2017 21.09 COMPARED WITH PREVIOUS EKG RAPID VENTRICULAR RESPONSE TO A TRIAL FIBRILLATION IS NO LONGER PRESENT DOCTOR: Bruce Cisse Interpretating Date/Time 01/15/2017 21:25:58
[2017-01-15 22:07] LABS: APTT (PATIENT) 32.9 SEC (24.3-30.1)
--- NOTE | 2017-01-15 23:03 | EKG ---
Date Performed: 01/15/2017 Time Performed: 09:38:34 PTAGE: 56 years EKG: ATRIAL FIBRILLATION LOW QRS VOLTAGE ABNORMAL ECG PREVIOUS TRACING : 01/15/2017 03.54 DOCTOR: Bruce Cisse Interpretating Date/Time 01/15/2017 23:01:50
--- NOTE | 2017-01-15 23:20 | EKG ---
Date Performed: 01/14/2017 Time Performed: 21:09:31 PTAGE: 56 years EKG: ATRIAL FIBRILLATION WITH RAPID VENTRICULAR RESPONSE LOW QRS VOLTAGE IN PRECORDIAL LEADS ANT EROSEPTAL MYOCARDIAL INFARCTION ABNORMAL ECG PREVIOUS TRACING : 08/29/1992 11.07 Compared to the previous tracing RAPID VENTRICULAR RESPONSE TO AFIB IS NEW DOCTOR: Bruce Cisse Interpretating Date/Time 01/15/2017 23:18:57
[2017-01-15] MEDS: HEPARIN SODIUM - IV 10,000 UNITS/10 ML VIAL IV PUSH PRN (23:28)
[2017-01-16] VITALS (12 sets, daily range): BP systolic 90–144; BP diastolic 69–100; PULSE 57–117; RESP 16–20; TEMP 97.2–98.3; O2SAT 93–97
[2017-01-16] MEDS: HEPARIN-D5W 25,000 U/250 ML 250 ML IV PRN (03:28)
[2017-01-16] MEDS: RESP: ALBUTEROL 2.5 MG/IPRATROPIUM 0.5 MG NEB (SCH) NEB ×4 (03:39→21:25)
[2017-01-16 05:37] LABS: AUTOMATED NEUTROPHIL # 6.2 TH/MM3 (1.8-7.7); BASOPHIL % 0.5 % (0.0-2.0); EOSINOPHIL # 0.1 TH/MM3 (0-0.4); HEMATOCRIT 49.4 % (39.0-51.0); HEMO FLAGS DIFF FINAL; LYMPH % 17.8 % (9.0-44.0); LYMPHOCYTE # 1.5 TH/MM3 (1.0-4.8); MEAN CELL VOLUME 83.9 FL (80.0-100.0); MEAN CORPUSCULAR HEMOGLOBIN 26.9 PG (27.0-34.0); MONO % 8.2 % (0.0-8.0); NEUT % 72.5 % (16.0-70.0); PLATELET COUNT 164 TH/MM3 (150-450); RED BLOOD COUNT 5.89 MIL/MM3 (4.50-5.90); RED CELL DISTRIBUTION WIDTH 16.2 % (11.6-17.2); WHITE BLOOD COUNT 8.6 TH/MM3 (4.0-11.0)
[2017-01-16 05:42] LABS: APTT (PATIENT) 28.2 SEC (24.3-30.1)
[2017-01-16 05:55] LABS: BICARBONATE 31.2 MEQ/L (21.0-32.0); POTASSIUM 3.9 MEQ/L (3.5-5.1)
[2017-01-16] MEDS: CLINDAMYCIN 150 MG CAP PO SCH ×4 (06:04→23:22)
[2017-01-16] MEDS: HEPARIN SODIUM - IV 10,000 UNITS/10 ML VIAL IV PUSH PRN (06:04)
--- NOTE | 2017-01-16 08:14 | HHI.FF ---
Face to Face Verification Diagnosis: (1) Respiratory distress (2) Elevated troponin (3) Atrial fibrillation with RVR (4) Type 2 diabetes mellitus (5) Wounds, multiple open, lower extremity Physical Therapy Order: Evaluate and Treat, Improve ambulation, Strength and gait training Occupational Therapy Order: Evaluate and Treat, Improve ADL, Gross motor coordination Home Health Nursing Order: Medical education Signs/symptoms of disease process Diabetic education Medication education-adverse effect Wound care and dressing changes I have seen patient Bassam Rodriguez on 01/16/17. My clinical findings support the need for the requested home health care services because: Ltd mobility - disease progression Limited ability to care for self I certify that my clinical findings support that this patient is homebound because: Hx COPD- exertion dyspnea/weakness Unsteady gait/balance Hilda Shahid Jan 16, 2017 08:14
[2017-01-16] MEDS ORDERED: WALKER/EXTENDED1 MIS (08:16)
[2017-01-16] MEDS: BUDESONIDE-FORMOTEROL 160/4.5 MCG INHALER INH SCH ×2 (09:17→21:21)
[2017-01-16] MEDS: FUROSEMIDE 40 MG/4 ML VIAL IV PUSH SCH ×2 (09:18→17:57)
[2017-01-16] MEDS: ASPIRIN EC 81 MG TABEC PO SCH (09:18)
[2017-01-16] MEDS: LACTOBACILLUS ACIDOPHILUS TAB PO SCH ×3 (09:18→17:56)
[2017-01-16] MEDS: SODIUM CHLORIDE 0.9% FLUSH 10 ML FLUSH IV FLUSH SCH ×2 (09:18→21:18)
[2017-01-16] MEDS: POTASSIUM CHLORIDE 10 MEQ CONTROLLED RELEASE TAB PO SCH (09:18)
[2017-01-16] MEDS: DILTIAZEM HCL 60 MG TAB PO SCH ×2 (09:18→12:23)
[2017-01-16] MEDS ORDERED: INFLUENZA VIRUS VACCINE (QUADRIVALENT) 0.5 ML SYR IM ONE (10:00)
[2017-01-16] MEDS ORDERED: PNEUMOCOCCAL POLYVALENT INJ 25 MCG/0.5 ML SYR IM ONE (10:00)
[2017-01-16] MEDS ORDERED: ENALAPRILAT 1.25 MG/ML VIAL IV PUSH PRN (11:00)
[2017-01-16] MEDS ORDERED: cloNIDine HCL 0.1 MG TAB PO PRN (11:00)
[2017-01-16] MEDS ORDERED: INSULIN HUMAN REGULAR 1,000 UNITS/10 ML VIAL SQ ONE (11:00)
[2017-01-16 12:13] LABS: APTT (PATIENT) 37.8 SEC (24.3-30.1)
--- NOTE | 2017-01-16 12:35 | HHI.PR ---
Subjective Remarks Follow-up of acute on chronic respiratory failure, A. fib and elevated troponin. Patient requesting rehabilitation states he cannot walk. Denies chest pain and shortness of breath. Discussed with RN Objective Vitals Vital Signs Date Time Temp Pulse Resp B/P (MAP) Pulse Ox O2 Delivery O2 Flow Rate FiO2 01/16/17 12:00 97.5 115 18 110/85 (93) 97 01/16/17 09:32 117 01/16/17 09:32 Nasal Cannula 2.00 01/16/17 08:38 93 Nasal Cannula 3.00 01/16/17 08:00 97.4 104 18 144/100 (115) 97 01/16/17 04:00 97.2 98 20 117/89 (98) 95 01/16/17 03:39 96 Nasal Cannula 3.00 01/16/17 00:00 97.5 57 19 118/69 (85) 96 01/15/17 20:00 97.8 69 20 98/69 (79) 95 01/15/17 19:15 95 Nasal Cannula 3.00 01/15/17 19:15 84 01/15/17 17:53 Nasal Cannula 3.00 01/15/17 16:43 98.0 89 19 114/57 (76) 97 01/15/17 16:28 94 Nasal Cannula 3.00 01/15/17 16:07 98.2 86 25 101/70 (80) 98 01/15/17 16:07 95 Nasal Cannula 3.00 01/15/17 16:00 88 01/15/17 15:30 98 Nasal Cannula 3.00 01/15/17 15:00 80 01/15/17 14:00 86 I/O 01/15/17 01/15/17 01/15/17 01/16/17 01/16/17 01/16/17 07:00 15:00 23:00 07:00 15:00 23:00 Intake Total 66 ml 480 ml 240 ml Output Total 550 ml 500 ml Balance -484 ml -20 ml 240 ml Intake Oral 0 ml 480 ml 240 ml IV Total 66 ml Output Urine Total 550 ml 500 ml # Voids 0 # Bowel Movements 0 0 Result Diagram: 01/16/1739901/16/17399 Imaging Last Impressions Chest X-Ray 01/14/172111 Signed Impressions: Service Date/Time: December 21:39 - CONCLUSION: Prominent basilar markings possibly secondary to patient being quite large and hypoaeration Henrry Whittington MD Objective Remarks GENERAL: Morbidly obese male in no acute distress SKIN: Bilateral lower extremities with dry dressing CARDIOVASCULAR: Normal rate and regular rhythm without murmurs, gallops, or rubs. RESPIRATORY: Decreased breath sounds clear to auscultation GASTROINTESTINAL: Abdomen morbidly obese. Normal active bowel sounds MUSCULOSKELETAL: Bilateral lower extremity with 3+ edema up to the thighs. NEURO: Alert & Oriented x4 to person, place, time, situation. Moves all ext x4 PSYCH: Appropriate mood and affect. Procedures None A/P Problem List: (1) Acute on chronic congestive heart failure ICD Code: I50.9 - Heart failure, unspecified (2) COPD exacerbation ICD Code: J44.1 - Chronic obstructive pulmonary disease with (acute) exacerbation Status: Chronic (3) Elevated troponin ICD Code: R74.8 - Abnormal levels of other serum enzymes Status: Acute (4) Atrial fibrillation with RVR ICD Code: I48.91 - Unspecified atrial fibrillation Status: Acute (5) Type 2 diabetes mellitus ICD Code: E11.9 - Type 2 diabetes mellitus without complications Status: Chronic (6) Wounds, multiple open, lower extremity ICD Code: S81.809A - Unspecified open wound, unspecified lower leg, initial encounter Status: Chronic Assessment and Plan In summary this is a 56-year-old male who was recently discharged from another hospital after he was treated for cellulitis, CHF, possible pneumonia. The patient is admitted to [place] for respiratory distress. He was found to be in A. fib with RVR, CHF, and elevated troponin. He also has cellulitis involving bilateral lower extremities. Acute on Chronic CHF - continuous cardiac telemetry to monitor cardiac structure and function - BNP - 655 - monitor I and Os - Continue Lasix 40 mg IV twice a day. Echocardiogram to evaluate cardiac structure and function COPD exacerbation: Obesity related resp insufficiency. Patient has chronic respiratory failure on home oxygen - required Bi-PAP initially - supplemental oxygen titrated to maintain oxygen saturation > 92% - Duonebulizers q6h scheduled and q2h PRN wheezing. Hold off steroid for now since he is improving. Troponin I elevation -Could be demand ischemia secondary to CHF and afib with RVR but concern for ACS given significant risk factors -Cardiology consulted awaiting echocardiogram. Might need stress test or cardiac catheterization - heparin gtt for anticoagulation - Risk factor modification check A1c and lipid profile Atrial fibrillation with RVR - Cardizem drip for rate control - DC metoprolol given COPD. continue oral Cardizem status post drip as tolerated. Further plans per Cardiology. Was on Xarelto Type 2 DM. Uncontrolled - Restart preprandial Humalog insulin - Accuchecks with SSI - hypoglycemia protocol Bilateral lower extremity chronic wounds and Cellulitis. - Wound care physician consulted - + MRSA - contact isolation - Continue clindamycin. Follow progress. - Patient will benefit from outpatient wound care when discharged. DVT prophylaxis - heparin gtt for now Discharge Planning Discharge when cleared by cardiology Problem Qualifiers (1) Type 2 diabetes mellitus: Qualified Codes: E11.622 - Type 2 diabetes mellitus with other skin ulcer (2) Wounds, multiple open, lower extremity: Qualified Codes: S81.809A - Unspecified open wound, unspecified lower leg, initial encounter Per Baca MD Jan 16, 2017 12:35
[2017-01-16] MEDS: INSULIN ASPART SUPPLEMENTAL SCALE SQ SCH ×3 (12:38→20:21)
[2017-01-16] MEDS: INSULIN ASPART 1,000 UNITS/10 ML VIAL SQ SCH ×2 (12:38→17:56)
[2017-01-16 12:55] LABS: HDL CHOLESTEROL 35.1 MG/DL (40.0-60.0); LDL CHOLESTEROL 101 MG/DL (0-99)
[2017-01-16] MEDS ORDERED: SENNOSIDES 8.6 MG TAB PO PRN (13:00)
[2017-01-16] MEDS ORDERED: NALOXONE HCL 0.4 MG/ML AMP IV PUSH PRN (13:00)
[2017-01-16] MEDS ORDERED: BISACODYL 10 MG SUPP RECTAL PRN (13:00)
[2017-01-16] MEDS ORDERED: LACTULOSE SYRUP 20 GM/30 ML CUP PO PRN (13:00)
[2017-01-16] MEDS ORDERED: ONDANSETRON HCL 4 MG/2 ML VIAL IVP PRN (13:00)
[2017-01-16] MEDS ORDERED: ACETAMINOPHEN 325 MG TAB PO PRN ×2 (13:00)
[2017-01-16] MEDS ORDERED: MAGNESIUM HYDROXIDE SUSP 30 ML CUP PO PRN (13:00)
--- NOTE | 2017-01-16 13:41 | PD.CARD.PN ---
Subjective Subjective Remarks Feels tired, jittery Objective Medications Current Medications Medications (Trade) Dose Ordered Sig/Jim Route Start Time Stop Time Status Last Admin Diltiazem HCl 125 mg/Sodium Chloride 125 ml @ 5 mls/hr TITRATE PRN IV 01/14/17 21:30 01/14/17 22:25 (NS Flush) 2 ml UNSCH PRN IV FLUSH 01/15/17 00:15 (NS Flush) 2 ml BID IV FLUSH 01/15/17 09:00 01/15/17 21:29 (Narcan Inj) 0.4 mg UNSCH PRN IV PUSH 01/15/17 00:15 (Duoneb Neb) 1 ampule Q6HR NEB NEB 01/15/17 04:00 01/16/17 08:36 (Duoneb Neb) 1 ampule Q2HR NEB PRN NEB 01/15/17 00:15 (Heparin Inj) 5,000 units UNSCH PRN IV PUSH 01/15/17 07:15 (Heparin Inj) 2,500 units UNSCH PRN IV PUSH 01/15/17 07:15 01/16/17 06:04 Heparin Sodium/ Dextrose 250 ml @ 10 mls/hr TITRATE PRN IV 01/15/17 01:15 01/16/17 03:28 (Lasix Inj) 40 mg BID@09,18 IV PUSH 01/15/17 09:00 01/16/17 09:18 (Lactinex) 1 tab TID PO 01/15/17 09:00 01/16/17 12:23 (Ecotrin Ec) 81 mg DAILY PO 01/15/17 09:00 01/16/17 09:18 (KCl) 10 meq DAILY PO 01/15/17 09:00 01/16/17 09:18 (Symbicort 160-4.5 Inh) 2 puff BID INH 01/15/17 09:00 01/16/17 09:17 (Cleocin) 450 mg Q6HR PO 01/15/17 06:00 01/16/17 12:24 (Cardizem) 60 mg QID PO 01/15/17 13:00 01/16/17 12:23 (D50w (Vial) Inj) 50 ml UNSCH PRN IV PUSH 01/15/17 13:15 (Glucagon Inj) 1 mg UNSCH PRN OTHER 01/15/17 13:15 (NovoLOG SUPPLEMENTAL SCALE) 1 ACHS SLIDING SCALE SQ 01/16/17 12:00 01/16/17 12:38 (Vasotec Inj) 1.25 mg Q6H PRN IV PUSH 01/16/17 11:00 (Catapres) 0.1 mg Q6H PRN PO 01/16/17 11:00 (NovoLOG INJ) 15 units TIDAC SQ 01/16/17 12:00 01/16/17 12:38 (Tylenol) 650 mg Q4H PRN PO 01/16/17 13:00 (Zofran Inj) 4 mg Q6H PRN IVP 01/16/17 13:00 (Ambien) 5 mg HS PRN PO 01/16/17 13:00 (Tylenol) 650 mg Q6H PRN PO 01/16/17 13:00 (Celeste-Colace) 1 tab BID PO 01/16/17 13:00 (Milk Of Magnesia Liq) 30 ml Q12H PRN PO 01/16/17 13:00 (Senokot) 17.2 mg Q12H PRN PO 01/16/17 13:00 (Dulcolax Supp) 10 mg DAILY PRN RECTAL 01/16/17 13:00 (Lactulose Liq) 30 ml DAILY PRN PO 01/16/17 13:00 Vital Signs / I&O Vital Signs Date Time Temp Pulse Resp B/P (MAP) Pulse Ox O2 Delivery O2 Flow Rate FiO2 01/16/17 12:00 97.5 115 18 110/85 (93) 97 01/16/17 09:32 117 01/16/17 09:32 Nasal Cannula 2.00 01/16/17 08:38 93 Nasal Cannula 3.00 01/16/17 08:00 97.4 104 18 144/100 (115) 97 01/16/17 04:00 97.2 98 20 117/89 (98) 95 01/16/17 03:39 96 Nasal Cannula 3.00 01/16/17 00:00 97.5 57 19 118/69 (85) 96 01/15/17 20:00 97.8 69 20 98/69 (79) 95 01/15/17 19:15 95 Nasal Cannula 3.00 01/15/17 19:15 84 01/15/17 17:53 Nasal Cannula 3.00 01/15/17 16:43 98.0 89 19 114/57 (76) 97 01/15/17 16:28 94 Nasal Cannula 3.00 01/15/17 16:07 98.2 86 25 101/70 (80) 98 01/15/17 16:07 95 Nasal Cannula 3.00 01/15/17 16:00 88 01/15/17 15:30 98 Nasal Cannula 3.00 01/15/17 15:00 80 01/15/17 14:00 86 I/O 01/15/17 01/15/17 01/15/17 01/16/17 01/16/17 01/16/17 07:00 15:00 23:00 07:00 15:00 23:00 Intake Total 66 ml 480 ml 240 ml Output Total 550 ml 500 ml Balance -484 ml -20 ml 240 ml Intake Oral 0 ml 480 ml 240 ml IV Total 66 ml Output Urine Total 550 ml 500 ml # Voids 0 # Bowel Movements 0 0 Physical Exam GENERAL: Morbidly obese CARDIOVASCULAR: Irregular rhythm without murmurs, gallops, or rubs. RESPIRATORY: Clear to auscultation. Breath sounds equal bilaterally. No wheezes , rales, or rhonchi. GASTROINTESTINAL: Abdomen soft, non-tender, nondistended. Normal active bowel sounds MUSCULOSKELETAL: Extremities without clubbing, cyanosis, or edema. NEURO: Alert & Oriented x4 to person, place, time, situation. Moves all ext x4 Laboratory Laboratory Tests Test 01/15/17 15:27 01/15/17 15:55 01/15/17 21:37 01/16/17 04:00 Total Creatine Kinase 62 U/L Troponin I 0.13 NG/ML Activated Partial Thromboplast Time 36.0 SEC 32.9 SEC 28.2 SEC White Blood Count 8.6 TH/MM3 Red Blood Count 5.89 MIL/MM3 Hemoglobin 15.8 GM/DL Hematocrit 49.4 % Mean Corpuscular Volume 83.9 FL Mean Corpuscular Hemoglobin 26.9 PG Mean Corpuscular Hemoglobin Concent 32.0 % Red Cell Distribution Width 16.2 % Platelet Count 164 TH/MM3 Mean Platelet Volume 9.1 FL Neutrophils (%) (Auto) 72.5 % Lymphocytes (%) (Auto) 17.8 % Monocytes (%) (Auto) 8.2 % Eosinophils (%) (Auto) 1.0 % Basophils (%) (Auto) 0.5 % Neutrophils # (Auto) 6.2 TH/MM3 Lymphocytes # (Auto) 1.5 TH/MM3 Monocytes # (Auto) 0.7 TH/MM3 Eosinophils # (Auto) 0.1 TH/MM3 Basophils # (Auto) 0.0 TH/MM3 CBC Comment DIFF FINAL Differential Comment Blood Urea Nitrogen 20 MG/DL Creatinine 0.85 MG/DL Random Glucose 131 MG/DL Calcium Level 8.6 MG/DL Sodium Level 142 MEQ/L Potassium Level 3.9 MEQ/L Chloride Level 104 MEQ/L Carbon Dioxide Level 31.2 MEQ/L Anion Gap 7 MEQ/L Estimat Glomerular Filtration Rate 93 ML/MIN Triglycerides Level 89 MG/DL Cholesterol Level 154 MG/DL LDL Cholesterol 101 MG/DL HDL Cholesterol 35.1 MG/DL Cholesterol/HDL Ratio 4.38 RATIO Test 01/16/17 11:24 Activated Partial Thromboplast Time 37.8 SEC Imaging Last Impressions Chest X-Ray 01/14/172111 Signed Impressions: Service Date/Time: December 21:39 - CONCLUSION: Prominent basilar markings possibly secondary to patient being quite large and hypoaeration Henrry Whittington MD Assessment and Plan Problem List: (1) Atrial fibrillation with RVR ICD Codes: I48.91 - Unspecified atrial fibrillation Status: Acute Plan: on heparin ggt; rates a bit elevated, increased diltiazem (2) Respiratory distress ICD Codes: R06.00 - Dyspnea, unspecified Status: Acute Plan: improved (3) Elevated troponin ICD Codes: R74.8 - Abnormal levels of other serum enzymes Status: Acute Plan: unclear cause, nuc vs cath depending on echo (4) Acute on chronic congestive heart failure ICD Codes: I50.9 - Heart failure, unspecified Plan: reasonably compensated (5) Morbid obesity ICD Codes: E66.01 - Morbid (severe) obesity due to excess calories Plan: with his multiple medical problems makes his prognosis much worse, he has already had bariatric surgery in the remote past Assessment and Plan echo pending. Loyd Rosenthal MD Jan 16, 2017 13:41
--- NOTE | 2017-01-16 15:36 | ECHRPT ---
Indication: CHF CONCLUSIONS Mildly dilated left ventricle. Mild concentric left ventricular hypertrophy. The left ventricular systolic function is severely reduced with an estimated ejection fractionof 15- 20%. The right ventricular systoilc function is moderately decreased. Mitral annular calcification is present. Trace mitral valve regurgitation. Aortic valve sclerosis is present. There is trace tricuspid valve regurgitation. The estimated pulmonary arterial pressure is 38mmHg. There is a trivial pericardial effusion present. No hemodynamically significant echocardiographic features were observed (no pre-tamponade physiology). BP: 124 / 74 HR: 94 Rhythm: MEASUREMENTS (Male / Female) Normal Values Technical Quality:Technically difficult study 2D ECHO LV Diastolic Diameter PLAX 6.0 cm 4.2 - 5.9 / 3.9 - 5.3 cm LV Systolic Diameter PLAX 5.7 cm IVS Diastolic Thickness 1.4 cm 0.6 - 1.0 / 0.6 - 0.9 cm LVPW Diastolic Thickness 0.9 cm 0.6 - 1.0 / 0.6 - 0.9 cm LV Relative Wall Thickness 0.4 RV Internal Dim ED PLAX 2.6 cm LA Systolic Diameter LX 4.4 cm 3.0 - 4.0 / 2.7 - 3.8 cm DOPPLER MR Peak Velocity 448.0 cm/s MR Peak Gradient 80.3 mmHg Mitral E Point Velocity 114.0 cm/s TR Peak Velocity 307.0 cm/s TR Peak Gradient 37.7 mmHg FINDINGS LEFT VENTRICLE Mildly dilated left ventricle. Mild concentric left ventricular hypertrophy. The left ventricular systolic function is severely reduced with an estimated ejection fractionof 15- 20%. RIGHT VENTRICLE The right ventricular systoilc function is moderately decreased. LEFT ATRIUM The left atrial size is normal. RIGHT ATRIUM The right atrial size is normal. ATRIAL SEPTUM Thickened atrial septum is noted with morphological features most consistent with a lipomatous atria l septum. AORTA The aortic root and proximal ascending aorta are normal in size on limited imaging. MITRAL VALVE Mitral annular calcification is present. Trace mitral valve regurgitation. AORTIC VALVE Aortic valve sclerosis is present. TRICUSPID VALVE There is trace tricuspid valve regurgitation. The estimated pulmonary arterial pressure is 38mmHg. PULMONARY VALVE The pulmonary valve is not well visualized. VESSELS The inferior vena cava is normal in size. PERICARDIUM There is a trivial pericardial effusion present. No hemodynamically significant echocardiographic features were observed (no pre-tamponade physiology). Loyd Rosenthal MD (Electronically Signed) Final Date:16 January 2017 15:35
[2017-01-16] MEDS: DOCUSATE SODIUM 50 MG/SENNA 8.6 MG TAB PO SCH ×2 (17:56→21:18)
[2017-01-16] MEDS: DILTIAZEM HCL 90 MG TAB PO SCH ×2 (17:56→21:18)
[2017-01-16 19:33] LABS: APTT (PATIENT) 35.7 SEC (24.3-30.1)
[2017-01-17] VITALS (9 sets, daily range): BP systolic 118–137; BP diastolic 70–90; PULSE 88–106; RESP 18–20; TEMP 97–97.9; O2SAT 93–99
[2017-01-17] MEDS: RESP: ALBUTEROL 2.5 MG/IPRATROPIUM 0.5 MG NEB (SCH) NEB ×4 (03:57→21:30)
[2017-01-17] MEDS: CLINDAMYCIN 150 MG CAP PO SCH ×4 (06:58→23:29)
[2017-01-17] MEDS ORDERED: hydrOXYzine PAMOATE 25 MG CAP PO PRN (08:15)
[2017-01-17 09:13] LABS: APTT (PATIENT) 38.9 SEC (24.3-30.1)
[2017-01-17] MEDS: FUROSEMIDE 40 MG/4 ML VIAL IV PUSH SCH ×2 (09:23→17:38)
[2017-01-17] MEDS: POTASSIUM CHLORIDE 10 MEQ CONTROLLED RELEASE TAB PO SCH (09:23)
[2017-01-17] MEDS: BUDESONIDE-FORMOTEROL 160/4.5 MCG INHALER INH SCH ×2 (09:24→22:36)
[2017-01-17] MEDS: INSULIN ASPART 1,000 UNITS/10 ML VIAL SQ SCH ×3 (09:24→17:36)
[2017-01-17] MEDS: ASPIRIN EC 81 MG TABEC PO SCH (09:24)
[2017-01-17] MEDS: SODIUM CHLORIDE 0.9% FLUSH 10 ML FLUSH IV FLUSH SCH ×2 (09:24→22:35)
[2017-01-17] MEDS: DOCUSATE SODIUM 50 MG/SENNA 8.6 MG TAB PO SCH ×2 (09:24→22:23)
[2017-01-17] MEDS: INSULIN ASPART SUPPLEMENTAL SCALE SQ SCH ×4 (09:24→21:00)
[2017-01-17] MEDS: LACTOBACILLUS ACIDOPHILUS TAB PO SCH ×3 (09:24→17:39)
[2017-01-17] MEDS: DILTIAZEM HCL 90 MG TAB PO SCH ×4 (09:30→22:23)
--- NOTE | 2017-01-17 11:39 | HHI.PR ---
Subjective Remarks Follow-up cardiomyopathy. Results discussed with the patient. Improving shortness of breath. Agrees with cardiac catheterization. States metoprolol never bothered his breathing. Discussed with RN Objective Vitals Vital Signs Date Time Temp Pulse Resp B/P (MAP) Pulse Ox O2 Delivery O2 Flow Rate FiO2 01/17/17 09:18 96 01/17/17 09:18 Room Air 01/17/17 08:15 96 Nasal Cannula 3.00 01/17/17 08:00 97.2 100 18 118/70 (86) 96 01/17/17 04:00 97.9 100 20 137/72 (93) 96 01/17/17 00:00 Nasal Cannula 2.00 01/16/17 23:15 97.2 92 16 90/72 (78) 95 99/70 (80) 01/16/17 21:27 94 Nasal Cannula 3.00 01/16/17 20:12 106 01/16/17 20:12 106 01/16/17 20:00 Nasal Cannula 2.00 01/16/17 20:00 97.5 80 20 138/85 (102) 96 01/16/17 16:00 98.3 90 18 103/69 (80) 93 01/16/17 12:00 97.5 115 18 110/85 (93) 97 I/O 01/16/17 01/16/17 01/16/17 01/17/17 01/17/17 01/17/17 07:00 15:00 23:00 07:00 15:00 23:00 Intake Total 240 ml 1120 ml 780 ml Output Total 1400 ml Balance 240 ml -280 ml 780 ml Intake Oral 240 ml 960 ml 650 ml IV Total 160 ml 130 ml Output Urine Total 1400 ml # Voids 0 2 # Bowel Movements 0 0 0 Result Diagram: 01/16/1739901/16/17399 Imaging Last Impressions Chest X-Ray 01/14/172111 Signed Impressions: Service Date/Time: December 21:39 - CONCLUSION: Prominent basilar markings possibly secondary to patient being quite large and hypoaeration Henrry Whittington MD Objective Remarks GENERAL: Morbidly obese male in no acute distress SKIN: Bilateral lower extremities with dry dressing CARDIOVASCULAR: Normal rate and regular rhythm without murmurs, gallops, or rubs. RESPIRATORY: Decreased breath sounds clear to auscultation GASTROINTESTINAL: Abdomen morbidly obese. Normal active bowel sounds MUSCULOSKELETAL: Bilateral lower extremity with 3+ edema up to the thighs. NEURO: Alert & Oriented x4 to person, place, time, situation. Moves all ext x4 No significant change in PE from previous Procedures None A/P Problem List: (1) Acute on chronic congestive heart failure ICD Code: I50.9 - Heart failure, unspecified (2) COPD exacerbation ICD Code: J44.1 - Chronic obstructive pulmonary disease with (acute) exacerbation Status: Chronic (3) Elevated troponin ICD Code: R74.8 - Abnormal levels of other serum enzymes Status: Acute (4) Atrial fibrillation with RVR ICD Code: I48.91 - Unspecified atrial fibrillation Status: Acute (5) Type 2 diabetes mellitus ICD Code: E11.9 - Type 2 diabetes mellitus without complications Status: Chronic (6) Wounds, multiple open, lower extremity ICD Code: S81.809A - Unspecified open wound, unspecified lower leg, initial encounter Status: Chronic Assessment and Plan In summary this is a 56-year-old male who was recently discharged from another hospital after he was treated for cellulitis, CHF, possible pneumonia. The patient is admitted to [place] for respiratory distress. He was found to be in A. fib with RVR, CHF, and elevated troponin. He also has cellulitis involving bilateral lower extremities. Acute on Chronic systolic CHF - continuous cardiac telemetry to monitor cardiac structure and function - BNP - 655 - monitor I and Os - Continue Lasix 40 mg IV twice a day. Restart BB and consider entresto will dw cards COPD exacerbation: Obesity related resp insufficiency. Patient has chronic respiratory failure on home oxygen - required Bi-PAP initially - supplemental oxygen titrated to maintain oxygen saturation > 92% - Duonebulizers q6h scheduled and q2h PRN wheezing. Hold off steroid for now since he is improving. Troponin I elevation -Could be demand ischemia secondary to CHF and afib with RVR but concern for ACS given significant risk factors -Cardiology for cardiac catheterization in the morning - heparin gtt for anticoagulation - Risk factor modification A1c 7.9 and LDL 101 Atrial fibrillation with RVR -Status post Cardizem drip -Continue oral Cardizem and start beta latrice. Was on Xarelto Type 2 DM. Uncontrolled - Restart preprandial Humalog insulin. We will consider long-acting insulin - Accuchecks with SSI - hypoglycemia protocol Bilateral lower extremity chronic wounds and Cellulitis. - Wound care physician consulted - + MRSA - contact isolation - Continue clindamycin. Follow progress. - Patient will benefit from outpatient wound care when discharged. DVT prophylaxis - heparin gtt for now Discharge Planning Discharge when cleared by cardiology Problem Qualifiers (1) Acute on chronic congestive heart failure: Qualified Codes: I50.23 - Acute on chronic systolic (congestive) heart failure (2) Type 2 diabetes mellitus: Qualified Codes: E11.622 - Type 2 diabetes mellitus with other skin ulcer (3) Wounds, multiple open, lower extremity: Qualified Codes: S81.809A - Unspecified open wound, unspecified lower leg, initial encounter Per Baca MD Jan 17, 2017 11:39
[2017-01-17] MEDS ORDERED: PILL SPLITTER OTHER PRN (12:30)
[2017-01-17 14:00] LABS: HEMOGLOBIN A1a 0.8 %; HEMOGLOBIN A1b 2.2 %; HEMOGLOBIN LA1C 2.1 %; HEMOGLOBIN P3 4.7 %
--- NOTE | 2017-01-17 14:24 | PD.CARD.PN ---
Subjective Subjective Remarks No complaints. Objective Medications Current Medications Medications (Trade) Dose Ordered Sig/Jim Route Start Time Stop Time Status Last Admin Diltiazem HCl 125 mg/Sodium Chloride 125 ml @ 5 mls/hr TITRATE PRN IV 01/14/17 21:30 01/14/17 22:25 (NS Flush) 2 ml UNSCH PRN IV FLUSH 01/15/17 00:15 (NS Flush) 2 ml BID IV FLUSH 01/15/17 09:00 01/17/17 09:24 (Narcan Inj) 0.4 mg UNSCH PRN IV PUSH 01/15/17 00:15 (Duoneb Neb) 1 ampule Q6HR NEB NEB 01/15/17 04:00 01/17/17 08:12 (Duoneb Neb) 1 ampule Q2HR NEB PRN NEB 01/15/17 00:15 (Heparin Inj) 5,000 units UNSCH PRN IV PUSH 01/15/17 07:15 (Heparin Inj) 2,500 units UNSCH PRN IV PUSH 01/15/17 07:15 01/16/17 06:04 Heparin Sodium/ Dextrose 250 ml @ 10 mls/hr TITRATE PRN IV 01/15/17 01:15 01/16/17 03:28 (Lasix Inj) 40 mg BID@09,18 IV PUSH 01/15/17 09:00 01/17/17 09:23 (Lactinex) 1 tab TID PO 01/15/17 09:00 01/16/17 17:56 (Ecotrin Ec) 81 mg DAILY PO 01/15/17 09:00 01/17/17 09:24 (KCl) 10 meq DAILY PO 01/15/17 09:00 01/17/17 09:23 (Symbicort 160-4.5 Inh) 2 puff BID INH 01/15/17 09:00 01/17/17 09:24 (Cleocin) 450 mg Q6HR PO 01/15/17 06:00 01/17/17 13:15 (D50w (Vial) Inj) 50 ml UNSCH PRN IV PUSH 01/15/17 13:15 (Glucagon Inj) 1 mg UNSCH PRN OTHER 01/15/17 13:15 (NovoLOG SUPPLEMENTAL SCALE) 1 ACHS SLIDING SCALE SQ 01/16/17 12:00 01/16/17 12:38 (Vasotec Inj) 1.25 mg Q6H PRN IV PUSH 01/16/17 11:00 (Catapres) 0.1 mg Q6H PRN PO 01/16/17 11:00 (NovoLOG INJ) 15 units TIDAC SQ 01/16/17 12:00 01/17/17 13:15 (Tylenol) 650 mg Q4H PRN PO 01/16/17 13:00 (Zofran Inj) 4 mg Q6H PRN IVP 01/16/17 13:00 (Ambien) 5 mg HS PRN PO 01/16/17 13:00 (Tylenol) 650 mg Q6H PRN PO 01/16/17 13:00 (Celeste-Colace) 1 tab BID PO 01/16/17 13:00 01/17/17 09:24 (Milk Of Magnesia Liq) 30 ml Q12H PRN PO 01/16/17 13:00 (Senokot) 17.2 mg Q12H PRN PO 01/16/17 13:00 (Dulcolax Supp) 10 mg DAILY PRN RECTAL 01/16/17 13:00 (Lactulose Liq) 30 ml DAILY PRN PO 01/16/17 13:00 (Cardizem) 90 mg QID PO 01/16/17 18:00 01/17/17 13:15 (Vistaril) 25 mg Q6H PRN PO 01/17/17 08:15 (Lopressor) 12.5 mg Q12HR PO 01/17/17 21:00 (Pill Splitter) 1 ea UNSCH PRN OTHER 01/17/17 12:30 Vital Signs / I&O Vital Signs Date Time Temp Pulse Resp B/P (MAP) Pulse Ox O2 Delivery O2 Flow Rate FiO2 01/17/17 12:00 97.0 88 18 136/82 (100) 99 01/17/17 09:18 96 01/17/17 09:18 Room Air 01/17/17 08:15 96 Nasal Cannula 3.00 01/17/17 08:00 97.2 100 18 118/70 (86) 96 01/17/17 04:00 97.9 100 20 137/72 (93) 96 01/17/17 00:00 Nasal Cannula 2.00 01/16/17 23:15 97.2 92 16 90/72 (78) 95 99/70 (80) 01/16/17 21:27 94 Nasal Cannula 3.00 01/16/17 20:12 106 01/16/17 20:12 106 01/16/17 20:00 Nasal Cannula 2.00 01/16/17 20:00 97.5 80 20 138/85 (102) 96 01/16/17 16:00 98.3 90 18 103/69 (80) 93 I/O 01/16/17 01/16/17 01/16/17 01/17/17 01/17/17 01/17/17 07:00 15:00 23:00 07:00 15:00 23:00 Intake Total 240 ml 1120 ml 780 ml Output Total 1400 ml Balance 240 ml -280 ml 780 ml Intake Oral 240 ml 960 ml 650 ml IV Total 160 ml 130 ml Output Urine Total 1400 ml # Voids 0 2 # Bowel Movements 0 0 0 Physical Exam GENERAL: Morbidly obese CARDIOVASCULAR: Irregular rhythm without murmurs, gallops, or rubs. RESPIRATORY: Clear to auscultation. Breath sounds equal bilaterally. No wheezes , rales, or rhonchi. GASTROINTESTINAL: Abdomen soft, non-tender, nondistended. Normal active bowel sounds MUSCULOSKELETAL: Extremities without clubbing, cyanosis, or edema. NEURO: Alert & Oriented x4 to person, place, time, situation. Moves all ext x4 Laboratory Laboratory Tests Test 01/16/17 19:06 01/17/17 06:00 Activated Partial Thromboplast Time 35.7 SEC 38.9 SEC Imaging Last Impressions Chest X-Ray 01/14/172111 Signed Impressions: Service Date/Time: December 21:39 - CONCLUSION: Prominent basilar markings possibly secondary to patient being quite large and hypoaeration Henrry Whittington MD Assessment and Plan Problem List: (1) Atrial fibrillation with RVR ICD Codes: I48.91 - Unspecified atrial fibrillation Status: Acute Plan: on heparin ggt; rates a bit elevated, will change metoprolol to coreg ( at a slightly higher relative dose) (2) Respiratory distress ICD Codes: R06.00 - Dyspnea, unspecified Status: Acute Plan: improved (3) Elevated troponin ICD Codes: R74.8 - Abnormal levels of other serum enzymes Status: Acute Plan: w/ Low LVEF, will likely need a cath, npo past midnight (4) Acute on chronic congestive heart failure ICD Codes: I50.9 - Heart failure, unspecified Plan: reasonably compensated; could consider changing to oral lasix tomorrow ( volume status very hard to assess due to morbid obesity) (5) Morbid obesity ICD Codes: E66.01 - Morbid (severe) obesity due to excess calories Plan: with his multiple medical problems makes his prognosis much worse, he has already had bariatric surgery in the remote past (6) Cardiomyopathy ICD Codes: I42.9 - Cardiomyopathy, unspecified Status: Acute Plan: will change metoprolol to coreg, added entresto, ordered life-vest; probable cath tomorrow to r/o ischemic causes. Assessment and Plan NPO past midnight, Dr. tellez to return tomorrow to resume care. Problem Qualifiers (1) Acute on chronic congestive heart failure: Qualified Codes: I50.23 - Acute on chronic systolic (congestive) heart failure (2) Cardiomyopathy: Qualified Codes: I42.9 - Cardiomyopathy, unspecified Loyd Rosenthal MD Jan 17, 2017 14:24
[2017-01-17 17:28] LABS: APTT (PATIENT) 28.7 SEC (24.3-30.1)
[2017-01-17] MEDS: HEPARIN-D5W 25,000 U/250 ML 250 ML IV PRN (17:35)
[2017-01-17] MEDS ORDERED: CARVEDILOL 12.5 MG TAB PO SCH (21:00)
[2017-01-17] MEDS ORDERED: METOPROLOL TARTRATE 25 MG TAB PO SCH (21:00)
[2017-01-17] MEDS: SACUBITRIL/VALSARTAN 24 MG-26 MG TAB PO SCH (22:23)
[2017-01-17] MEDS: ZOLPIDEM TARTRATE 5 MG TAB PO PRN (22:34)
[2017-01-18] VITALS (13 sets, daily range): BP systolic 87–152; BP diastolic 55–99; PULSE 76–116; RESP 18–22; TEMP 97.2–98.3; O2SAT 92–96
[2017-01-18 00:35] LABS: APTT (PATIENT) 38.7 SEC (24.3-30.1)
[2017-01-18] MEDS: RESP: ALBUTEROL 2.5 MG/IPRATROPIUM 0.5 MG NEB (SCH) NEB ×3 (03:54→21:20)
[2017-01-18] MEDS: CLINDAMYCIN 150 MG CAP PO SCH ×2 (06:00→08:21)
[2017-01-18 07:28] LABS: MEAN CELL VOLUME 84.1 FL (80.0-100.0); MEAN CORPUSCULAR HEMOGLOBIN 27.2 PG (27.0-34.0); MEAN CORPUSCULAR HGB CONC 32.4 % (32.0-36.0); PLATELET COUNT 128 TH/MM3 (150-450); RED BLOOD COUNT 5.34 MIL/MM3 (4.50-5.90); RED CELL DISTRIBUTION WIDTH 16.6 % (11.6-17.2); REVIEW FLAG FINAL; WHITE BLOOD COUNT 10.5 TH/MM3 (4.0-11.0)
[2017-01-18 07:30] LABS: APTT (PATIENT) 52.6 SEC (24.3-30.1)
--- NOTE | 2017-01-18 07:41 | PD.CARD.PN ---
Subjective Subjective Remarks breathing better. denies chest pain (Brittany Marion) Objective Medications Current Medications Medications (Trade) Dose Ordered Sig/Jim Route Start Time Stop Time Status Last Admin Diltiazem HCl 125 mg/Sodium Chloride 125 ml @ 5 mls/hr TITRATE PRN IV 01/14/17 21:30 01/14/17 22:25 (NS Flush) 2 ml UNSCH PRN IV FLUSH 01/15/17 00:15 01/17/17 23:30 (NS Flush) 2 ml BID IV FLUSH 01/15/17 09:00 01/17/17 22:35 (Narcan Inj) 0.4 mg UNSCH PRN IV PUSH 01/15/17 00:15 (Duoneb Neb) 1 ampule Q6HR NEB NEB 01/15/17 04:00 01/18/17 03:54 (Duoneb Neb) 1 ampule Q2HR NEB PRN NEB 01/15/17 00:15 (Heparin Inj) 5,000 units UNSCH PRN IV PUSH 01/15/17 07:15 (Heparin Inj) 2,500 units UNSCH PRN IV PUSH 01/15/17 07:15 01/16/17 06:04 Heparin Sodium/ Dextrose 250 ml @ 10 mls/hr TITRATE PRN IV 01/15/17 01:15 01/17/17 17:35 (Lasix Inj) 40 mg BID@09,18 IV PUSH 01/15/17 09:00 01/17/17 17:38 (Lactinex) 1 tab TID PO 01/15/17 09:00 01/16/17 17:56 (Ecotrin Ec) 81 mg DAILY PO 01/15/17 09:00 01/17/17 09:24 (KCl) 10 meq DAILY PO 01/15/17 09:00 01/17/17 09:23 (Symbicort 160-4.5 Inh) 2 puff BID INH 01/15/17 09:00 01/17/17 22:36 (Cleocin) 450 mg Q6HR PO 01/15/17 06:00 01/17/17 23:29 (D50w (Vial) Inj) 50 ml UNSCH PRN IV PUSH 01/15/17 13:15 (Glucagon Inj) 1 mg UNSCH PRN OTHER 01/15/17 13:15 (NovoLOG SUPPLEMENTAL SCALE) 1 ACHS SLIDING SCALE SQ 01/16/17 12:00 01/16/17 12:38 (Catapres) 0.1 mg Q6H PRN PO 01/16/17 11:00 (NovoLOG INJ) 15 units TIDAC SQ 01/16/17 12:00 01/17/17 13:15 (Tylenol) 650 mg Q4H PRN PO 01/16/17 13:00 (Zofran Inj) 4 mg Q6H PRN IVP 01/16/17 13:00 01/17/17 23:29 (Ambien) 5 mg HS PRN PO 01/16/17 13:00 01/17/17 22:34 (Tylenol) 650 mg Q6H PRN PO 01/16/17 13:00 01/18/17 06:25 (Celeste-Colace) 1 tab BID PO 01/16/17 13:00 01/17/17 22:23 (Milk Of Magnesia Liq) 30 ml Q12H PRN PO 01/16/17 13:00 (Senokot) 17.2 mg Q12H PRN PO 01/16/17 13:00 (Dulcolax Supp) 10 mg DAILY PRN RECTAL 01/16/17 13:00 (Lactulose Liq) 30 ml DAILY PRN PO 01/16/17 13:00 (Cardizem) 90 mg QID PO 01/16/17 18:00 01/17/17 22:23 (Vistaril) 25 mg Q6H PRN PO 01/17/17 08:15 (Pill Splitter) 1 ea UNSCH PRN OTHER 01/17/17 12:30 (Entresto 24-26 Mg) 1 tab BID PO 01/17/17 21:00 01/17/17 22:23 (Coreg) 12.5 mg Q12HR PO 01/17/17 21:00 01/17/17 22:23 Vital Signs / I&O Vital Signs Date Time Temp Pulse Resp B/P (MAP) Pulse Ox O2 Delivery O2 Flow Rate FiO2 01/18/17 04:00 97.6 76 20 98/63 (75) 92 01/18/17 03:57 92 Nasal Cannula 3.00 01/18/17 00:00 97.2 107 20 152/99 (116) 93 01/17/17 21:30 93 Nasal Cannula 3.00 01/17/17 20:00 Nasal Cannula 2.00 01/17/17 20:00 97.3 106 18 121/90 (100) 93 01/17/17 19:56 88 01/17/17 16:00 97.3 95 18 125/86 (99) 95 01/17/17 12:00 97.0 88 18 136/82 (100) 99 01/17/17 09:18 96 01/17/17 09:18 Room Air 01/17/17 08:15 96 Nasal Cannula 3.00 01/17/17 08:00 97.2 100 18 118/70 (86) 96 I/O 01/17/17 01/17/17 01/17/17 01/18/17 01/18/17 01/18/17 07:00 15:00 23:00 07:00 15:00 23:00 Intake Total 780 ml 152 ml 600 ml Output Total 500 ml Balance 780 ml 152 ml 100 ml Intake Oral 650 ml 600 ml IV Total 130 ml 152 ml Output Urine Total 500 ml # Voids 2 # Bowel Movements 0 0 Physical Exam GENERAL: SKIN: Warm and dry. HEAD: Atraumatic. Normocephalic. EYES: Pupils equal and round. ENT: No nasal bleeding or discharge. Mucous membranes pink and moist. NECK: Trachea midline. No JVD. CARDIOVASCULAR: Irregular rate and rhythm RESPIRATORY: No accessory muscle use. Clear to auscultation. Breath sounds equal bilaterally. GASTROINTESTINAL: Abdomen soft, non-tender, nondistended. MUSCULOSKELETAL: Extremities without clubbing, cyanosis. Bilateral LE edema with anterior wounds. NEUROLOGICAL: Awake and alert. No obvious cranial nerve deficits. Normal speech. PSYCHIATRIC: Appropriate mood and affect; insight and judgment normal. Laboratory Laboratory Tests Test 01/17/17 16:16 01/17/17 23:47 01/18/17 06:00 Activated Partial Thromboplast Time 28.7 SEC 38.7 SEC 52.6 SEC White Blood Count 10.5 TH/MM3 Red Blood Count 5.34 MIL/MM3 Hemoglobin 14.6 GM/DL Hematocrit 45.0 % Mean Corpuscular Volume 84.1 FL Mean Corpuscular Hemoglobin 27.2 PG Mean Corpuscular Hemoglobin Concent 32.4 % Red Cell Distribution Width 16.6 % Platelet Count 128 TH/MM3 Mean Platelet Volume 9.2 FL (Brittany Marion) Assessment and Plan Problem List: (1) Atrial fibrillation with RVR ICD Codes: I48.91 - Unspecified atrial fibrillation Status: Acute (2) Respiratory distress ICD Codes: R06.00 - Dyspnea, unspecified Status: Acute (3) Elevated troponin ICD Codes: R74.8 - Abnormal levels of other serum enzymes Status: Acute (4) Acute on chronic congestive heart failure ICD Codes: I50.9 - Heart failure, unspecified (5) Morbid obesity ICD Codes: E66.01 - Morbid (severe) obesity due to excess calories (6) Cardiomyopathy ICD Codes: I42.9 - Cardiomyopathy, unspecified Status: Acute Assessment and Plan 56 yo obese WM with chronic afib (anticoagulated on Xarelto) and followed by Dr. Wakefield in the outpatient setting,COPD, diabetes, CHF and bilateral lower leg MRSA+ wounds admitted for acute dyspnea. He was recently discharged from [facility] for CHF and pleural effusion. CHF- acute on chronic. diuresing well. Now on Entresto cardiomyopathy- EF reduced 15-20%. he is npo for possible LHC today. troponin elevation- demand mediated vs. ischemic afib- rate controlled on cardizem gtt. metoprolol changed to carvedilol. heparin gtt (Brittany Marion) Assessment and Plan afib rate controlled. DC carvedilol due to BP. allow CCB for rate control. cardiomyopathy - LHC today. NPO p breakfast +/- lifevest pending results of cath DC planning BMP today (Lorenzo Rowley MD) Problem Qualifiers (1) Acute on chronic congestive heart failure: Qualified Codes: I50.23 - Acute on chronic systolic (congestive) heart failure (2) Cardiomyopathy: Qualified Codes: I42.9 - Cardiomyopathy, unspecified Brittany Marion Jan 18, 2017 07:41 Lorenzo Rowley MD Jan 18, 2017 07:58
[2017-01-18] MEDS: INSULIN ASPART SUPPLEMENTAL SCALE SQ SCH ×3 (08:00→21:00)
[2017-01-18] MEDS: INSULIN ASPART 1,000 UNITS/10 ML VIAL SQ SCH ×2 (08:00→12:00)
[2017-01-18] MEDS: BUDESONIDE-FORMOTEROL 160/4.5 MCG INHALER INH SCH ×2 (08:20→21:00)
[2017-01-18] MEDS: SODIUM CHLORIDE 0.9% FLUSH 10 ML FLUSH IV FLUSH SCH ×2 (08:20→21:49)
[2017-01-18] MEDS: ASPIRIN EC 81 MG TABEC PO SCH (08:20)
[2017-01-18] MEDS: FUROSEMIDE 40 MG/4 ML VIAL IV PUSH SCH (08:20)
[2017-01-18] MEDS: POTASSIUM CHLORIDE 10 MEQ CONTROLLED RELEASE TAB PO SCH (08:21)
[2017-01-18] MEDS: LACTOBACILLUS ACIDOPHILUS TAB PO SCH ×2 (08:21→13:00)
[2017-01-18] MEDS: DOCUSATE SODIUM 50 MG/SENNA 8.6 MG TAB PO SCH ×2 (08:21→21:00)
[2017-01-18] MEDS: SACUBITRIL/VALSARTAN 24 MG-26 MG TAB PO SCH ×2 (08:22→21:50)
[2017-01-18] MEDS: HEPARIN-D5W 25,000 U/250 ML 250 ML IV PRN (08:34)
[2017-01-18] MEDS: DILTIAZEM HCL 90 MG TAB PO SCH ×2 (09:00→13:00)
--- NOTE | 2017-01-18 12:01 | HHI.PR ---
Subjective Remarks Follow-up cardiomyopathy. NSVT x 2 patient was asymptomatic. Awaiting cardiac catheterization. Discussed with RN Objective Vitals Vital Signs Date Time Temp Pulse Resp B/P (MAP) Pulse Ox O2 Delivery O2 Flow Rate FiO2 01/18/17 10:41 93 Nasal Cannula 3.00 01/18/17 08:20 102/80 (87) 01/18/17 08:18 98.0 94 18 87/69 (75) 95 01/18/17 08:07 93 01/18/17 04:00 97.6 76 20 98/63 (75) 92 01/18/17 03:57 92 Nasal Cannula 3.00 01/18/17 00:00 97.2 107 20 152/99 (116) 93 01/17/17 21:30 93 Nasal Cannula 3.00 01/17/17 20:00 Nasal Cannula 2.00 01/17/17 20:00 97.3 106 18 121/90 (100) 93 01/17/17 19:56 88 01/17/17 16:00 97.3 95 18 125/86 (99) 95 I/O 01/17/17 01/17/17 01/17/17 01/18/17 01/18/17 01/18/17 07:00 15:00 23:00 07:00 15:00 23:00 Intake Total 780 ml 152 ml 600 ml Output Total 500 ml Balance 780 ml 152 ml 100 ml Intake Oral 650 ml 600 ml IV Total 130 ml 152 ml Output Urine Total 500 ml # Voids 2 # Bowel Movements 0 0 Result Diagram: 01/18/17 0600 01/16/17 0400 Imaging Last Impressions Chest X-Ray 01/14/172111 Signed Impressions: Service Date/Time: December 21:39 - CONCLUSION: Prominent basilar markings possibly secondary to patient being quite large and hypoaeration Henrry Whittington MD Objective Remarks GENERAL: Morbidly obese male in no acute distress SKIN: Bilateral lower extremities with dry dressing CARDIOVASCULAR: Normal rate and regular rhythm without murmurs, gallops, or rubs. RESPIRATORY: Decreased breath sounds clear to auscultation GASTROINTESTINAL: Abdomen morbidly obese. Normal active bowel sounds MUSCULOSKELETAL: Bilateral lower extremity with 3+ edema up to the thighs. NEURO: Alert & Oriented x4 to person, place, time, situation. Moves all ext x4 Procedures None A/P Problem List: (1) Acute on chronic congestive heart failure ICD Code: I50.9 - Heart failure, unspecified (2) COPD exacerbation ICD Code: J44.1 - Chronic obstructive pulmonary disease with (acute) exacerbation Status: Chronic (3) Elevated troponin ICD Code: R74.8 - Abnormal levels of other serum enzymes Status: Acute (4) Atrial fibrillation with RVR ICD Code: I48.91 - Unspecified atrial fibrillation Status: Acute (5) Type 2 diabetes mellitus ICD Code: E11.9 - Type 2 diabetes mellitus without complications Status: Chronic (6) Wounds, multiple open, lower extremity ICD Code: S81.809A - Unspecified open wound, unspecified lower leg, initial encounter Status: Chronic Assessment and Plan In summary this is a 56-year-old male who was recently discharged from another hospital after he was treated for cellulitis, CHF, possible pneumonia. The patient is admitted to [place] for respiratory distress. He was found to be in A. fib with RVR, CHF, and elevated troponin. He also has cellulitis involving bilateral lower extremities. Acute on Chronic systolic CHF - continuous cardiac telemetry to monitor cardiac structure and function - BNP - 655 - monitor I and Os - Continue Lasix 40, BB and entresto. LifeVest ordered NSVT. On BB. Life vest as above COPD exacerbation: Obesity related resp insufficiency. Patient has chronic respiratory failure on home oxygen. Improved - required Bi-PAP initially - supplemental oxygen titrated to maintain oxygen saturation > 92% - Duonebulizers q6h scheduled and q2h PRN wheezing. Hold off steroid for now since he is improving. Troponin I elevation -Could be demand ischemia secondary to CHF and afib with RVR but concern for ACS given significant risk factors -Cardiology for cardiac catheterization today - heparin gtt for anticoagulation - Risk factor modification A1c 7.9 and LDL 101 Atrial fibrillation with RVR -Status post Cardizem drip -Continue oral Cardizem and beta latrice. Was on Xarelto Type 2 DM. Uncontrolled - Restart preprandial Humalog insulin. We will consider long-acting insulin - Accuchecks with SSI - hypoglycemia protocol Bilateral lower extremity chronic wounds and Cellulitis. - Wound care physician consulted - + MRSA - contact isolation - Continue clindamycin started January 15. Follow progress. - Patient will benefit from outpatient wound care when discharged. DVT prophylaxis - heparin gtt for now Discharge Planning Discharge when cleared by cardiology Problem Qualifiers (1) Acute on chronic congestive heart failure: Qualified Codes: I50.23 - Acute on chronic systolic (congestive) heart failure (2) Type 2 diabetes mellitus: Qualified Codes: E11.622 - Type 2 diabetes mellitus with other skin ulcer (3) Wounds, multiple open, lower extremity: Qualified Codes: S81.809A - Unspecified open wound, unspecified lower leg, initial encounter Per Baca MD Jan 18, 2017 12:01
[2017-01-18 13:44] LABS: INTERNATIONAL NORMALIZED RATIO 1.2 RATIO; PROTHROMBIN TIME - PATIENT 12.9 SEC (9.8-11.6)
[2017-01-18] MEDS ORDERED: HEPARIN-NS/PF INJ 1,000 ML ONE (14:09)
[2017-01-18] MEDS ORDERED: MIDAZOLAM HCL 2 MG/2 ML VIAL ONE (14:09)
[2017-01-18] MEDS ORDERED: HEPARIN SODIUM - IV 10,000 UNITS/10 ML VIAL ONE (14:09)
[2017-01-18] MEDS ORDERED: NITROGLYCERIN INJ 5 ML ONE (14:11)
[2017-01-18] MEDS ORDERED: BIVALIRUDIN 250 MG VIAL ONE ×2 (14:52→14:54)
[2017-01-18] MEDS ORDERED: DEFIB EXTERNAL (15:17)
[2017-01-18] MEDS ORDERED: BIVALIRUDIN INJ 250 MG in SODIUM CHLORIDE 0.9% INJ 50 ML IV SCH (15:17)
[2017-01-18] MEDS ORDERED: CLOPIDOGREL 300 MG TAB ONE (15:20)
[2017-01-18] MEDS ORDERED: DIGOXIN 0.5 MG/2 ML VIAL IV PUSH ONE (15:30)
[2017-01-18] MEDS ORDERED: MORPHINE SULFATE 4 MG/ML INJ IV PUSH PRN (15:30)
[2017-01-18] MEDS ORDERED: LIDOCAINE 2% JELLY 30 ML TUBE TOP PRN (15:30)
[2017-01-18] MEDS ORDERED: BACITRACIN OINT 0.9 GM PKT TOP ONE (15:30)
--- NOTE | 2017-01-18 15:32 | CATHPROC ---
[employer] HIS Report Study Information Study Number Admission Scheduled Start Study Start [id number] Jan 14 2017 11:57PM 01/18/2017 Jan 18 2017 1:45PM Success Service Cardiac Catheterization Admit Source Facility Department Other [facility] - Credit Officer Physician and Clinical Staff Initial Lorenzo Sloan Senior Technical Business Analyst [place] RN Other Tatiana Orellana RCIS TECH2 Recorder Micky Mosher RCIS(BS) Manjeet Loving RT(R) Procedures Performed Procedure Location (Site) Vessel Name Coronary Angiograms LCA Left Coronary Coronary Angiograms RCA Right Coronary L Heart Cath PTCA RCA Mid Right Coronary Stent RCA Mid Right Coronary Wire insertion Radial (right) Radial Art. Equipment Time Progress Worker Description Size Mfg Part Number Used/Scraped COPILOT VALVE, BLEEDBACK [id number] 14:51 [employer]ochit CRITICAL CARE Used CONTROL *[id number] 14:50 [employer] CRITICAL CARE WIRE, ASAHI PROWATER 180CM 180CM Used *[id number] TRANSDUCER, TRUWAVE [id number] 14:33 REED MADDOX * Used W/STOCKCOCK *[id number] *[id number] *[id number] [id number] *[id number] 14:33 Cloudwear PACK, CCL CUSTOM * Used *[id number] 14:33 Cloudwear SUPPORT, ARTERIAL ADULT [id number] *[id number] Used [id number] 14:33 Simulation Appliance PACER PEN, SKIN DUAL W/ RULER * Used *[id number] 15:00 MEDTRONIC BALLOON, 2.5 X 25MM EUPHORA 25MM Used *[id number] 15:02 MEDTRONIC STENT, 2.75 26 INTEGRITY 2.75 26 Used *1440296 [id number] 15:08 MEDTRONIC STENT, 3.0 26 INTEGRITY 3.0 26 Used *[id number] 15:01 Convo 30 NIKOLAS INDEFLATOR Used *[id number] BAND, RADIAL COMPRESSION TR [id number] 15:13 MoboFree MEDICAL 29CM Used LARGE 29 *[id number] SHEATH, FR6 RADIAL PRELUDE 14:33 Convo FR 6 [id number] Used EASE 11CM [id number] 14:33 Convo WIRE, EXCHANGE 260CM 3MMJ 260CM Used *[id number] 14:33 NYCOMED OMNIPAQUE, 350 MG, 150ML 150ML [id number] Used [id number] 14:33 MOORE MEDICAL BLANKET,WARM AIR CCL * Used *[id number] 15:04 VASCULAR SOLUTIONS CATHETER, FR6 GUIDELINER FR 6 5571 *[id number] Used Equipment Model, Serial, Lot Number and Expiration Data Description Model Number Serial Number Lot Number Expiration Date STENT, 2.75 26 INTEGRITY [id number] 04-01-2018 STENT, 3.0 26 INTEGRITY [id number] 05-13-2018 History: Allergies Allergy Reaction No Known Allergies History: Risk Factors Family History of Hypertension Dyslipidemia Previous PR Previous Heart Failure Premature CAD No No No Yes No Prior Valve Prior PCI Prior CABG Surgery Yes No No Cerebrovascular Peripheral Artery Chronic Lung On Dialysis Diabetes Disease Disease Disease No No No Yes No History: Stress Tests Stress or Imaging Studies Performed Yes Standard Exercise Stress Test No Stress Echo No Stress Test SPECT Stress Test SPECT Result Yes Positive Stress Test CMR No Cardiac CTA Coronary Calcium Score No No History: Other Current Smoker Method Packs a Day Years Used Pack Years Yes Cigarettes 1 30 30 Labs Hgb (g/dl) Hct (%) WBC (l/cumm) Platelets (thousands) 11.60-17.00 35.00-51.00 4.00-11.00 150.00-450.00 14.6 45 10.5 128 Glucose (mg/dl) BUN (mg/dl) Creatinine (mg/dl) BUN:Creatinine (1:x) 74.00-106.00 7.00-18.00 0.50-1.30 10.00-20.00 131 20 0.8 25 Na (meq/l) K (meq/l) 136.00-145.00 3.50-5.10 142 3.9 INR (PTT:PT) 0.90-1.10 1.4 Troponin I (ng/ml) CPK (u/l) CPK-MB (ng/ML) 0.02-0.05 26.00-308.00 0.50-3.60 0.13 62 Not Drawn Medication Medication Total Dose (Bolus/Oral) Medication Total Dosage/Unit 1% XYLOCAINE 10 mL ANGIOMAX BOLUS 24.3 mL FENTANYL 50 mcg HEPARIN 5000 units PLAVIX 600 mg RADIAL COCKTAIL 5 mL (Bolus) VERSED 1 mg Medications (Bolus/Oral) Medication Time Given Dosage/Unit Administered By Reason VERSED 01/18/2017 2:31:00 PM 1 mg [place] 1 mg VERSED given in lab by [facility] RN in Left Forearm via Peripheral IV. Ordered by Lyla Rowley. FENTANYL 01/18/2017 2:31:00 PM 50 mcg [place] 50 mcg FENTANYL given in lab by [place] RN via Peripheral IV. Ordered by Lorenzo Rowley. 1% XYLOCAINE 01/18/2017 2:32:48 PM 10 mL Lorenzo Rowley 10 mL 1% XYLOCAINE given in lab by Lorenzo Rowley in Right Radial via Subcutaneous. Ordered by Lorenzo Rowley. Ntg 200mcg Verapamil 2.5mg Heparin RADIAL COCKTAIL 01/18/2017 2:38:42 PM 5 mL (Bolus) Lorenzo Rowley 2000U 5 mL (Bolus) RADIAL COCKTAIL given in lab by Lorenzo Rowley via Radial. Using [Solution Name]. Ordere d by Lorenzo Rowley. Reason: Ntg 200mcg HEPARIN 01/18/2017 2:40:47 PM 5000 units [place] 5000 units HEPARIN given in lab by [facility] RN in Left Forearm via Peripheral IV. Ordered by Lorenzo Bob. ANGIOMAX BOLUS 01/18/2017 2:56:36 PM 24.3 mL [place] 24.3 mL ANGIOMAX BOLUS given in lab by [facility] RN in Left Forearm via Peripheral IV. Ordered by Lorenzo Rowley. PLAVIX 01/18/2017 3:20:14 PM 600 mg [place] 600 mg PLAVIX given in lab by [facility] RN via Oral. Ordered by Lorenzo Rowley. Medication (Drip) Medication Time Given Dosage/Unit Concentration/Unit Diluent (ml) Solution ANGIOMAX DRIP 01/18/2017 2:58:05 PM 1.75 mg/kg/hr 250 mg 50 NaCl .9 1.75 mg/kg/hr ANGIOMAX DRIP given in lab by [facility] RN in Left Forearm via Peripheral IV. Pum p/Drip Flow = 56.74 ml/hr using NaCl .9 with a concentration of 250 mg in 50 ml. Ordered by Lorenzo Rowley. IV Solutions 01/18/2017 2:06:20 PM 0 mL (IV) 500 NaCl .9 Patient arrived on IV Solutions in Left Forearm via Peripheral IV. Pump/Drip Flow = 20 ml/hr using Na Cl .9. Initial Case Assessment Cardiovascular HR Rhythm NIBP Chest Pain 86 AFIB 132/77 0 Edema Present Skin color Skin None Normal Warm Dry Circulatory - Right Pulses Dorsalis Pedis Femoral Radial 1 2 2 Scale (0,1,2,3,4,d) Circulatory - Left Pulses Dorsalis Pedis Femoral Radial 1 2 Scale (0,1,2,3,4,d) Circulatory - Lower Extremities Color Lower Right Color Lower Left Normal Normal Neurological State Oriented to time-place- Alert Moves all extremities person Respiration - General Respiration Rate SpO2 (%) (B/min) 13 88 Final Case Assessment Cardiovascular HR Rhythm NIBP Chest Pain 95 AFIB 95/69 0 Edema Present Skin color Skin None Normal Warm Dry Circulatory - Right Pulses Dorsalis Pedis Femoral Radial 1 2 2 Scale (0,1,2,3,4,d) Circulatory - Left Pulses Dorsalis Pedis Femoral Radial 1 2 Scale (0,1,2,3,4,d) Circulatory - Lower Extremities Color Lower Right Color Lower Left Normal Normal Neurological State Oriented to time-place- Alert Moves all extremities person Respiration - General Respiration Rate SpO2 (%) (B/min) 13 88 Chronological Log Time Study Chronological Log 14:05:29 Patient arrived via Bed. 14:05:30 Patient Name, D.O.B, / Armband Verified By R.N. 14:05:31 Consent signed by the physician and the patient and verified by the Credit Officer staff. 14:05:31 Pre-op and post- op instructions given; patient acknowledges understanding of instructions. 14:05:32 Verbal Stimulation=2 Physical Stimulation=2 Airway=2 Respiration=2 TOTAL=8. (0=absent, 1=li mited, 2=present) 14:05:36 Allens test performed on the right radial and ulnar artery. 14:06:12 Patient has been NPO for More than 6Hrs. 14:06:13 Skin Breakdown- 14:06:14 Patient Warmer Placed on the Table. 14:06:18 A # 20 IV was noted in the Forearm (left). Grade = 0 14:06:20 Patient arrived on IV Solutions in Left Forearm via Peripheral IV. Pump/Drip Flow = 20 ml/h r using NaCl .9. 14:06:21 History and physical on the chart or being dictated. Assessment: Initial Case, HR=86 BPM, Rhythm=AFIB, UIVO=022/77 mmhg, Chest Pain=0, Edema=None, Color=Normal, Skin = Warm, Dry Right Pulses: Kleber Ped=1, Femoral=2, Radial=2 Left Pulses: Kleber Ped=1, Femoral=2 14:06:21 Lower Right Extremities: Color=Normal Lower Left Extremities: Color=Normal Neurological: State=Alert, Ox3, FREEMAN Respiration: Resp=13 B/min, SpO2=88 % Vitals capture started with the following parameters, Patient=Adult, Interval=5 min, Initial Pr ruvjli=112 mmHg, 14:10:26 Deflation Rate=5 mmHg, Cuff placed on Right Arm 14:11:07 IUKO=322/84 mmhg 14:16:26 RG=283 bpm, TLFX=713/77 mmhg, SpO2=91.0 %, Resp=15 B/min, Pain=0, Wendy=10, Medina=2 14:16:32 Reference ECG taken 14:20:49 Pressure channel 1 zeroed. 14:21:33 KB=719 bpm, SQIS=888/85 mmhg, SpO2=86.0 %, Resp=22 B/min, Pain=0, Wendy=10, Medina=2 14:22:43 Bilateral groins prepped with 2% chlorhexidine, and draped after a 3 minute waiting time. 14:22:49 MD paged 14:25:59 GG=220 bpm, SABE=382/66 mmhg, SpO2=87.0 %, Resp=23 B/min, Pain=0, Wendy=10, Medina=2 14:26:24 MD arrived. Time Out. Correct patient, correct procedure, correct physician, power injector not loaded with contrast with surgical 14:27:18 team present. Time Out Concurred by MD and individual staff in procedure. 14:30:52 DC=851 bpm, WEPI=667/87 mmhg, SpO2=93.0 %, Resp=30 B/min, Pain=0, Wendy=10, Medina=2 14:31:00 1 mg VERSED given in lab by [facility], TALAT in Left Forearm via Peripheral IV. Ordered b Lorenzo Azevedo. 14:31:00 50 mcg FENTANYL given in lab by [facility], TALAT via Peripheral IV. Ordered by Tayo Rowley. 14:31:07 Case Start 14:32:48 10 mL 1% XYLOCAINE given in lab by Lorenzo Rowley in Right Radial via Subcutaneous. Ordered by Lorenzo Rowley. 14:33:09 Access site was RIGHT Radial Artery. 14:35:58 FU=721 bpm, RWHH=064/77 mmhg, SpO2=89.0 %, Resp=22 B/min, Pain=0, Wendy=10, Medina=2 A SHEATH, FR6 RADIAL PRELUDE EASE 11CM FR 6 was advanced into the Radial (right) using the Perc utaneous 14:38:24 technique. 5 mL (Bolus) RADIAL COCKTAIL given in lab by Lorenzo Rowley via Radial. Using [Solution Name]. Ordered by Amrik 14:38:42 Lorenzo. Reason: Ntg 200mcg A JR 5.0 INFINITI CATHETER FR 5 was advanced over a wire. OMNIPAQUE, 350 MG, 150ML 150ML was us ed for 14:39:24 injections. 14:40:47 5000 units HEPARIN given in lab by [facility] RN in Left Forearm via Peripheral IV. Or dered by Lorenzo Rowley. 14:41:01 GK=749 bpm, NIBP=96/64 mmhg, SpO2=86.0 %, Resp=24 B/min, Pain=0, Wendy=10, Medina=2 Recorded Pressure: LV, OO=280, Condition=Condition 1 14:41:25 (Left Ventricle) LV 99/15/21 Recorded Pressure: LV, Ao, ZK=656, Condition=Condition 1 14:41:40 (Left Ventricle) LV 102/14/23, (Aorta) Ao 99/75/85 Recorded Pressure: Ao, UF=550, Condition=Condition 1 14:42:04 (Aorta) Ao 99/78/87 14:43:43 The RCA was injected and visualized at various angles. OMNIPAQUE, 350 MG, 150ML 150ML used . After removing the current catheter a JL 3.5 INFINITI CATHETER FR 5 was advanced over a WIRE, E XCHANGE 260CM 14:45:08 3MMJ 260CM. 14:45:15 The LCA was injected and visualized at various angles. OMNIPAQUE, 350 MG, 150ML 150ML used . 14:45:56 OS=320 bpm, ZTQO=335/80 mmhg, SpO2=89.0 %, Resp=19 B/min, Pain=0, Wendy=10, Medina=2 14:50:59 LX=883 bpm, XJNK=676/88 mmhg, SpO2=91.0 %, Resp=22 B/min, Pain=0, Wendy=10, Medina=2 After removing the current catheter a JR 4.0 GUIDE CATHETER FR 6 was advanced over a WIRE, EXCH MADELAINE 260CM 14:51:02 3MMJ 260CM. Recorded Pressure: Ao, HR=95, Condition=Condition 1 14:53:23 (Aorta) Ao 104/78/91 14:54:38 A WIRE, ASAHI PROWATER 180CM 180CM was inserted via Radial (right). 14:56:00 MF=442 bpm, TLZE=223/73 mmhg, SpO2=92.0 %, Resp=18 B/min, Pain=0, Wendy=10, Medina=2 14:56:30 Interventional wire has crossed the lesion 24.3 mL ANGIOMAX BOLUS given in lab by [place] [facility] RN in Left Forearm via Peripheral IV. Or dered by Amrik 14:56:36 Lorenzo. 1.75 mg/kg/hr ANGIOMAX DRIP given in lab by [facility] RN in Left Forearm via Peripheral I V. Pump/Drip Flow = 14:58:05 56.74 ml/hr using NaCl .9 with a concentration of 250 mg in 50 ml. Ordered by Lorenzo Rowley. A BALLOON, 2.5 X 25MM EUPHORA 25MM was inserted over WIRE, ASAHI PROWATER 180CM 180CM via the R adial 15:00:08 (right). A BALLOON, 2.5 X 25MM EUPHORA 25MM over a WIRE, ASAHI PROWATER 180CM 180CM in the RCA Mid was i nflated 15:00:09 using a 30 NIKOLAS INDEFLATOR at 12 nikolas for 15 sec. 15:01:03 UD=389 bpm, NIBP=95/48 mmhg, SpO2=93.0 %, Resp=20 B/min, Pain=0, Wendy=10, Medina=2 A BALLOON, 2.5 X 25MM EUPHORA 25MM over a WIRE, ASAHI PROWATER 180CM 180CM in the RCA Mid was i nflated 15:01:17 using a 30 NIKOLAS INDEFLATOR at 12 nikolas for 15 sec. A BALLOON, 2.5 X 25MM EUPHORA 25MM over a WIRE, ASAHI PROWATER 180CM 180CM in the RCA Mid was i nflated 15:01:18 using a 30 NIKOLAS INDEFLATOR at 12 nikolas for 15 sec. 15:01:30 Balloon Removed. A CATHETER, FR6 GUIDELINER FR 6 was advanced over a wire. OMNIPAQUE, 350 MG, 150ML 150ML was us ed for 15:03:57 injections. 15:05:58 HJ=994 bpm, BYKE=047/79 mmhg, SpO2=91.0 %, Resp=26 B/min, Pain=0, Wendy=10, Medina=2 An STENT, 2.75 26 INTEGRITY 2.75 26 Bare Metal Stent was inserted through a JR 4.0 GUIDE CATHET ER FR 6 over a 15:07:13 WIRE, ASAHI PROWATER 180CM 180CM. A STENT, 2.75 26 INTEGRITY 2.75 26 was deployed using a 30 NIKOLAS INDEFLATOR at 16 atmospheres for 15 seconds in 15:07:14 the RCA Mid. 15:08:14 Delivery device removed An STENT, 3.0 26 INTEGRITY 3.0 26 Bare Metal Stent was inserted through a JR 4.0 GUIDE CATHETER FR 6 over a 15:10:45 WIRE, ASAHI PROWATER 180CM 180CM. A STENT, 3.0 26 INTEGRITY 3.0 26 was deployed using a 30 NIKOLAS INDEFLATOR at 16 atmospheres for 1 3 seconds in 15:10:51 the RCA Mid. 15:11:01 UC=856 bpm, OPER=444/76 mmhg, SpO2=92.0 %, Resp=24 B/min, Pain=0, Wendy=10, Medina=2 15:11:16 Delivery device removed 15:12:13 Wire removed 15:12:15 Catheter was removed 15:12:16 Catheter was removed 15:: Case End 15:16:06 HR=92 bpm, NIBP=95/69 mmhg, Resp=25 B/min, Pain=0, Wendy=10, Medina=2 Assessment: Final Case, HR=95 BPM, Rhythm=AFIB, NIBP=95/69 mmhg, Chest Pain=0, Edema=None, Eagle r=Normal, Skin = Warm, Dry Right Pulses: Kleber Ped=1, Femoral=2, Radial=2 Left Pulses: Kleber Ped=1, Femoral=2 15:16:47 Lower Right Extremities: Color=Normal Lower Left Extremities: Color=Normal Neurological: State=Alert, Ox3, FREEMAN Respiration: Resp=13 B/min, SpO2=88 % Radial Compression Device Used. ~VOLUME ML~ mLs of air placed in BAND, RADIAL COMPRESSION TR LA RGE 29 15:17:23 29CM. Affected hand ~O2 SATURATION~ % O2 saturation. 15:20:14 600 mg PLAVIX given in lab by [facility] RN via Oral. Ordered by Lorenzo Rowley. 15:21:42 CH=261 bpm, NIBP=95/73 mmhg, SpO2=94.0 %, Resp=23 B/min, Pain=0, Wendy=10, Medina=2 15:27:10 Sterile dressing applied to site 15:27:13 No case complications noted. 15:27:16 Cine recording checked. 15:27:19 Bedside Report will be given. 15:27:29 Implantable Device card placed in patient's chart. 15:27:30 Contrast Scanned 15:27:35 A Left Heart Cath was performed. 15:27:38 Patient moved to [facility] End Study - Contrast Media Used In Study Contrast Total Opened (mL) Total Used (mL) Total Wasted (mL) Omnipaque 130 130 0 End Study - Maximum Contrast Load Max Contrast Load (mL) 1013.1 End Study - Radiation Exposure Fluoro Time (minutes) 8.8 End Study - Patient Disposition Complications Transferred To Interventional Outcome No Telemetry Bed successful
[2017-01-18] MEDS ORDERED: LIDOCAINE 2% JELLY 5 ML TUBE OTHER PRN (17:30)
--- NOTE | 2017-01-18 17:55 | EKG ---
Date Performed: 01/18/2017 Time Performed: 10:16:07 PTAGE: 56 years EKG: ATRIAL FIBRILLATION BORDERLINE RIGHT AXIS DEVIATION LOW QRS VOLTAGE IN EXTREMITY LEADS ABNO RMAL RHYTHM ECG Compared to prior tracing no significant change PREVIOUS TRACING : 01/15/2017 09.38 DOCTOR: Loyd Rosenthal Interpretating Date/Time 01/18/2017 17:54:59
--- NOTE | 2017-01-18 20:10 | MA ---
cc: KEVIN BORJAS DATE 01/18/2017 Cardiac catheterization performed on 01/18/2017 INDICATION [id number] OR, cardiomyopathy. PROCEDURES PERFORMED 1. Fluoroscopy with interpretation. 2. Left heart catheterization. 3. Coronary angiography. 4. Percutaneous intervention with bare metal stent to the mid-right coronary artery. METHOD Risks, benefits and alternatives discussed with the patient. The patient understood and consented to the procedure. The patient brought to the catheterization lab and placed on the catheterization table. Right wrist was prepped and draped in sterile fashion. Right wrist was anesthetized with 2% lidocaine. Right radial artery was cannulated and a 6-Wolof 7 cm sheath was placed without difficulty. LEFT HEART CATHETERIZATION Intraventricular hemodynamics measured at 100/60 mmHg. CORONARY ANGIOGRAPHY 1. Left main coronary has mild luminal irregularities. 2. Left anterior descending coronary artery has a 30% stenosis in the mid segment at the bifurcation of diagonal branch. Diagonal branch has mild luminal irregularities. 3. Left circumflex gives rise to first obtuse marginal branch. There is a 60% ostial stenosis present. The remainder of the vessel has minor irregularities. 4. The right coronary artery is a dominant vessel giving rise to a posterior descending branch. The mid right coronary has a 80% stenosis throughout. PERCUTANEOUS INTERVENTION The right coronary circulation was selectively engaged with a 6-Wolof JR-5 guide catheter. A 0.014 inch 180 cm Prowater wire was navigated down to the distal posterior descending branch. A 2.5 x 25 mm RX Euphora balloon was advanced down to the mid-right coronary artery and deployed on several inflations at 12 atmospheres. Repeat angiography showed SUJEY III flow with severe residual stenosis. Guide liner catheter was advanced to the proximal right coronary artery for additional guide support. A 2.75 x 26 mm RX bare metal stent was advanced down to the mid distal right coronary artery and deployed. A 3.0 x 26 mm RX Integrity bare metal stent was advanced down to the proximal mid right coronary artery with minimal stent overlap and deployed. Repeat angiography showed no residual stenosis and SUJEY III flow. CONCLUSIONS 1. Severe right coronary artery stenosis. 2. Successful percutaneous intervention with bare metal stent to the right coronary artery. 3. Normal left-sided filling pressures. PLAN The patient will be monitored closely for any post procedural complications. We will initiate Plavix. He will need to stay on that for approximately 8 weeks. He is also going to be on aspirin and Xarelto. We will initiate the Xarelto tomorrow if he has no bleeding issues. Radial approach should allow us to initiate the anticoagulant fairly quickly. Due to his cardiomyopathy and his revascularization he will need a LifeVest external cardioverter defibrillator jacket. He will need a 3-month echocardiogram and if his ejection fraction is then improved, he will not need an implantable cardiac defibrillator. If it has not improved then he would technically qualify for implantable cardiac defibrillator. We will initiate beta latrice, discontinue the calcium channel latrice. I am going to add dig for additional rate control. And he is on Entresto. MD ELIESER Wilkerson/KK /3:32 PM /7:55 PM
[2017-01-18] MEDS ORDERED: METOPROLOL TARTRATE 25 MG TAB PO SCH (21:00)
[2017-01-18] MEDS: FUROSEMIDE 40 MG TAB PO SCH (21:49)
[2017-01-18] MEDS: ATORVASTATIN 40 MG TAB PO SCH (21:50)
[2017-01-18] MEDS: ZOLPIDEM TARTRATE 5 MG TAB PO PRN (21:53)
[2017-01-18 22:24] LABS: BICARBONATE 36.5 MEQ/L (21.0-32.0); MAGNESIUM 1.9 MG/DL (1.5-2.5); POTASSIUM 3.9 MEQ/L (3.5-5.1)
[2017-01-18 22:27] LABS: APTT (PATIENT) 44.5 SEC (24.3-30.1)
[2017-01-19] VITALS (25 sets, daily range): BP systolic 106–140; BP diastolic 51–97; PULSE 98–122; RESP 20–24; TEMP 97.1–98.2; O2SAT 92–96
[2017-01-19] MEDS: CLINDAMYCIN 150 MG CAP PO SCH ×5 (00:03→23:49)
[2017-01-19] MEDS: RESP: ALBUTEROL 2.5 MG/IPRATROPIUM 0.5 MG NEB (SCH) NEB (03:47)
[2017-01-19 04:27] LABS: AUTOMATED NEUTROPHIL # 9.5 TH/MM3 (1.8-7.7); BASOPHIL % 0.2 % (0.0-2.0); EOSINOPHIL # 0.1 TH/MM3 (0-0.4); EOSINOPHIL % 0.5 % (0.0-4.0); HEMATOCRIT 49.4 % (39.0-51.0); HEMO FLAGS DIFF FINAL; LYMPH % 9.4 % (9.0-44.0); LYMPHOCYTE # 1.1 TH/MM3 (1.0-4.8); MEAN CORPUSCULAR HEMOGLOBIN 27.2 PG (27.0-34.0); MEAN CORPUSCULAR HGB CONC 32.4 % (32.0-36.0); MONO % 6.6 % (0.0-8.0); NEUT % 83.3 % (16.0-70.0); PLATELET COUNT 151 TH/MM3 (150-450); RED BLOOD COUNT 5.87 MIL/MM3 (4.50-5.90); RED CELL DISTRIBUTION WIDTH 16.7 % (11.6-17.2); WHITE BLOOD COUNT 11.4 TH/MM3 (4.0-11.0)
[2017-01-19 04:47] LABS: BICARBONATE 32.2 MEQ/L (21.0-32.0)
[2017-01-19 04:48] LABS: HDL CHOLESTEROL 38.9 MG/DL (40.0-60.0)
[2017-01-19] MEDS: ISOSORBIDE MONONITRATE 30 MG TAB PO SCH (06:31)
[2017-01-19] MEDS: INSULIN ASPART 1,000 UNITS/10 ML VIAL SQ SCH ×3 (08:00→18:19)
[2017-01-19] MEDS: INSULIN ASPART SUPPLEMENTAL SCALE SQ SCH ×4 (08:00→21:00)
--- NOTE | 2017-01-19 08:10 | PD.CARD.PN ---
Subjective Subjective Remarks breathing better. denies chest pain (Brittany Marion) Objective Medications Current Medications Medications (Trade) Dose Ordered Sig/Jim Route Start Time Stop Time Status Last Admin (NS Flush) 2 ml UNSCH PRN IV FLUSH 01/15/17 00:15 01/17/17 23:30 (NS Flush) 2 ml BID IV FLUSH 01/15/17 09:00 01/18/17 21:49 (Narcan Inj) 0.4 mg UNSCH PRN IV PUSH 01/15/17 00:15 (Duoneb Neb) 1 ampule Q2HR NEB PRN NEB 01/15/17 00:15 (Lactinex) 1 tab TID PO 01/15/17 09:00 01/18/17 08:21 (Ecotrin Ec) 81 mg DAILY PO 01/15/17 09:00 01/18/17 08:20 (KCl) 10 meq DAILY PO 01/15/17 09:00 01/18/17 08:21 (Symbicort 160-4.5 Inh) 2 puff BID INH 01/15/17 09:00 01/18/17 08:20 (Cleocin) 450 mg Q6HR PO 01/15/17 06:00 01/19/17 06:31 (D50w (Vial) Inj) 50 ml UNSCH PRN IV PUSH 01/15/17 13:15 (Glucagon Inj) 1 mg UNSCH PRN OTHER 01/15/17 13:15 (NovoLOG SUPPLEMENTAL SCALE) 1 ACHS SLIDING SCALE SQ 01/16/17 12:00 01/18/17 21:00 (Catapres) 0.1 mg Q6H PRN PO 01/16/17 11:00 (NovoLOG INJ) 15 units TIDAC SQ 01/16/17 12:00 01/17/17 13:15 (Tylenol) 650 mg Q4H PRN PO 01/16/17 13:00 (Zofran Inj) 4 mg Q6H PRN IVP 01/16/17 13:00 01/17/17 23:29 (Ambien) 5 mg HS PRN PO 01/16/17 13:00 01/18/17 21:53 (Tylenol) 650 mg Q6H PRN PO 01/16/17 13:00 01/18/17 06:25 (Celeste-Colace) 1 tab BID PO 01/16/17 13:00 01/18/17 08:21 (Milk Of Magnesia Liq) 30 ml Q12H PRN PO 01/16/17 13:00 (Senokot) 17.2 mg Q12H PRN PO 01/16/17 13:00 (Dulcolax Supp) 10 mg DAILY PRN RECTAL 01/16/17 13:00 (Lactulose Liq) 30 ml DAILY PRN PO 01/16/17 13:00 (Vistaril) 25 mg Q6H PRN PO 01/17/17 08:15 (Pill Splitter) 1 ea UNSCH PRN OTHER 01/17/17 12:30 (Entresto 24-26 Mg) 1 tab BID PO 01/17/17 21:00 01/18/17 21:50 (Morphine Inj) 2 mg Q30M PRN IV PUSH 01/18/17 15:30 (Plavix) 75 mg DAILY PO 01/19/17 09:00 (Lipitor) 40 mg HS PO 01/18/17 21:00 01/18/17 21:50 (Xarelto) 20 mg DAILY PO 01/19/17 09:00 (Lopressor) 25 mg Q12HR PO 01/18/17 21:00 01/18/17 21:50 (Imdur) 30 mg DAILY@07 PO 01/19/17 07:00 01/19/17 06:31 (Lasix) 40 mg BID@09,18 PO 01/18/17 18:00 01/18/17 21:49 (Lanoxin) 0.25 mg DAILY PO 01/19/17 09:00 (Xylocaine 2% Jelly) 1 applic UNSCH X1 PRN OTHER 01/18/17 17:30 01/19/17 17:29 Vital Signs / I&O Vital Signs Date Time Temp Pulse Resp B/P (MAP) Pulse Ox O2 Delivery O2 Flow Rate FiO2 01/19/17 06:00 105 01/19/17 05:00 98 01/19/17 04:00 105 01/19/17 04:00 98.2 105 24 119/85 (96) 94 01/19/17 04:00 94 Nasal Cannula 4.00 01/19/17 03:48 92 Nasal Cannula 4.00 01/19/17 03:00 111 10/24/17 02:00 100 01/19/17 01:00 112 01/19/17 00:00 98.2 107 24 139/97 (111) 96 01/19/17 00:00 96 Nasal Cannula 4.00 01/19/17 00:00 104 01/18/17 23:00 116 01/18/17 22:00 112 01/18/17 21:20 94 Nasal Cannula 4.00 01/18/17 21:00 108 01/18/17 20:00 108 01/18/17 20:00 96 Nasal Cannula 4.00 01/18/17 20:00 98.3 113 22 114/89 (97) 96 01/18/17 15:41 93 Nasal Cannula 3.00 01/18/17 12:04 97.6 96 18 94/55 (68) 94 01/18/17 12:00 94 Nasal Cannula 01/18/17 10:41 93 Nasal Cannula 3.00 01/18/17 08:20 102/80 (87) 01/18/17 08:18 98.0 94 18 87/69 (75) 95 01/18/17 08:07 93 I/O 01/18/17 01/18/17 01/18/17 01/19/17 01/19/17 01/19/17 07:00 15:00 23:00 07:00 15:00 23:00 Intake Total 600 ml 240 ml Output Total 500 ml 350 ml Balance 100 ml -110 ml Intake Oral 600 ml 240 ml Output Urine Total 500 ml 350 ml # Bowel Movements 0 0 Physical Exam GENERAL: SKIN: Warm and dry. HEAD: Atraumatic. Normocephalic. EYES: Pupils equal and round. ENT: No nasal bleeding or discharge. Mucous membranes pink and moist. NECK: Trachea midline. No JVD. CARDIOVASCULAR: Irregular rate and rhythm, no murmur RESPIRATORY: No accessory muscle use. Clear to auscultation. Breath sounds equal bilaterally. GASTROINTESTINAL: Abdomen soft, non-tender, nondistended. MUSCULOSKELETAL: Extremities without clubbing, cyanosis. Bilateral LE edema with anterior wounds. NEUROLOGICAL: Awake and alert. No obvious cranial nerve deficits. Normal speech. PSYCHIATRIC: Appropriate mood and affect; insight and judgment normal. Laboratory Laboratory Tests Test 01/18/17 21:42 01/19/17 03:47 Activated Partial Thromboplast Time 44.5 SEC Blood Urea Nitrogen 17 MG/DL 17 MG/DL Creatinine 0.93 MG/DL 0.79 MG/DL Random Glucose 181 MG/DL 176 MG/DL Calcium Level 8.9 MG/DL 8.8 MG/DL Magnesium Level 1.9 MG/DL Sodium Level 139 MEQ/L 138 MEQ/L Potassium Level 3.9 MEQ/L 4.0 MEQ/L Chloride Level 98 MEQ/L 99 MEQ/L Carbon Dioxide Level 36.5 MEQ/L 32.2 MEQ/L Anion Gap 5 MEQ/L 7 MEQ/L Estimat Glomerular Filtration Rate 83 ML/MIN 101 ML/MIN Thyroid Stimulating Hormone 3rd Gen 1.950 uIU/ML White Blood Count 11.4 TH/MM3 Red Blood Count 5.87 MIL/MM3 Hemoglobin 16.0 GM/DL Hematocrit 49.4 % Mean Corpuscular Volume 84.0 FL Mean Corpuscular Hemoglobin 27.2 PG Mean Corpuscular Hemoglobin Concent 32.4 % Red Cell Distribution Width 16.7 % Platelet Count 151 TH/MM3 Mean Platelet Volume 9.9 FL Neutrophils (%) (Auto) 83.3 % Lymphocytes (%) (Auto) 9.4 % Monocytes (%) (Auto) 6.6 % Eosinophils (%) (Auto) 0.5 % Basophils (%) (Auto) 0.2 % Neutrophils # (Auto) 9.5 TH/MM3 Lymphocytes # (Auto) 1.1 TH/MM3 Monocytes # (Auto) 0.7 TH/MM3 Eosinophils # (Auto) 0.1 TH/MM3 Basophils # (Auto) 0.0 TH/MM3 CBC Comment DIFF FINAL Differential Comment Total Creatine Kinase 40 U/L Triglycerides Level 104 MG/DL Cholesterol Level 174 MG/DL LDL Cholesterol 114 MG/DL HDL Cholesterol 38.9 MG/DL Cholesterol/HDL Ratio 4.47 RATIO (Brittany Marion) Assessment and Plan Problem List: (1) Atrial fibrillation with RVR ICD Codes: I48.91 - Unspecified atrial fibrillation Status: Acute (2) Respiratory distress ICD Codes: R06.00 - Dyspnea, unspecified Status: Acute (3) Elevated troponin ICD Codes: R74.8 - Abnormal levels of other serum enzymes Status: Acute (4) Acute on chronic congestive heart failure ICD Codes: I50.9 - Heart failure, unspecified (5) Morbid obesity ICD Codes: E66.01 - Morbid (severe) obesity due to excess calories (6) Cardiomyopathy ICD Codes: I42.9 - Cardiomyopathy, unspecified Status: Acute Assessment and Plan 56 yo obese WM with chronic afib (anticoagulated on Xarelto) and followed by Dr. Wakefield in the outpatient setting,COPD, diabetes, CHF and bilateral lower leg MRSA+ wounds admitted for acute dyspnea. He was recently discharged from [facility] for CHF and pleural effusion. CAD- NSTEMI, s/p PCI BS RCA, asa, cont plavix x 8 weeks CHF- acute on chronic. diuresing well. Now on Entresto cardiomyopathy- EF reduced 15-20%. will need LifeVest. Repeat echo in 3 months, consider ICD if no improvement in EF. cont bb. afib- Xarelto resumed, HR ~100. (Brittany Marion) Assessment and Plan ambulate + wheeze worse today. DC Beta Deandre. restart cardizem. cont dig. check dig level. PT DC planning asa plavix xarelto possible lifevest (Lorenzo Rowley MD) Problem Qualifiers (1) Acute on chronic congestive heart failure: Qualified Codes: I50.23 - Acute on chronic systolic (congestive) heart failure (2) Cardiomyopathy: Qualified Codes: I42.9 - Cardiomyopathy, unspecified Brittany Marion Jan 19, 2017 08:10 Lorenzo Rowley MD Jan 19, 2017 09:20
[2017-01-19] MEDS: DIGOXIN 0.25 MG TAB PO SCH (09:00)
[2017-01-19] MEDS: LACTOBACILLUS ACIDOPHILUS TAB PO SCH ×4 (09:00→18:18)
[2017-01-19] MEDS: BUDESONIDE-FORMOTEROL 160/4.5 MCG INHALER INH SCH ×2 (09:00→21:00)
[2017-01-19] MEDS: SODIUM CHLORIDE 0.9% FLUSH 10 ML FLUSH IV FLUSH SCH ×2 (09:00→21:37)
[2017-01-19] MEDS: DOCUSATE SODIUM 50 MG/SENNA 8.6 MG TAB PO SCH ×2 (09:33→21:36)
[2017-01-19] MEDS: POTASSIUM CHLORIDE 10 MEQ CONTROLLED RELEASE TAB PO SCH (09:33)
[2017-01-19] MEDS: RIVAROXABAN 20 MG TAB PO SCH (09:33)
[2017-01-19] MEDS: CLOPIDOGREL 75 MG TAB PO SCH (09:33)
[2017-01-19] MEDS: SACUBITRIL/VALSARTAN 24 MG-26 MG TAB PO SCH ×2 (09:33→21:36)
[2017-01-19] MEDS: FUROSEMIDE 40 MG TAB PO SCH ×2 (09:34→18:18)
[2017-01-19] MEDS: ASPIRIN EC 81 MG TABEC PO SCH (09:34)
[2017-01-19] MEDS ORDERED: DIGO0.25 PO (10:57)
[2017-01-19] MEDS ORDERED: DILT60TA33 PO (10:57)
[2017-01-19] MEDS ORDERED: SACU1TAB PO (10:57)
[2017-01-19] MEDS ORDERED: ISOS30TA3 PO (10:57)
[2017-01-19] MEDS ORDERED: CLIN150 PO (10:57)
[2017-01-19] MEDS ORDERED: ATOR40TA16 PO (10:57)
[2017-01-19] MEDS ORDERED: PLAV75TA29 PO (10:57)
--- NOTE | 2017-01-19 10:57 | HHI.DCPOC ---
Discharge Care Plan Diagnosis: (1) Respiratory distress (2) COPD exacerbation (3) Atrial fibrillation with RVR (4) Elevated troponin (5) Cardiomyopathy Your Health Problems Are: Difficulty with ADL Exercise Tolerance Goals to Promote Your Health * To prevent worsening of your condition and complications * To maintain your health at the optimal level Directions to Meet Your Goals Take your medications as prescribed Follow your dietary instruction Follow activity as directed Keep your appointments as scheduled Take your immunizations and boosters as scheduled If your symptoms worsen call your PCP, if no PCP go to Urgent Care Center or Emergency Room Smoking is Dangerous to Your Health. Avoid second hand smoke Call the 24-hour hour crisis hotline for domestic abuse at Per Baca MD Jan 19, 2017 10:57
--- NOTE | 2017-01-19 10:59 | HHI.PR ---
Subjective Remarks F/U CMP. States his breathing is worse. "Has pain in his lungs" oxygen weaned down to 4 L he uses 2 L at home. Keeps complaining about his multiple medications. Diabetic education provided not keen on using long-acting insulin. Discussed with cardiology, beta latrice will be discontinued secondary to wheezing. Discussed with RN and cardiac navigator Objective Vitals Vital Signs Date Time Temp Pulse Resp B/P (MAP) Pulse Ox O2 Delivery O2 Flow Rate FiO2 01/19/17 10:00 110 01/19/17 09:00 114 01/19/17 08:00 122 01/19/17 08:00 97.1 100 20 116/73 (87) 95 01/19/17 08:00 108 01/19/17 07:00 95 Nasal Cannula 3.00 01/19/17 07:00 114 01/19/17 06:00 105 01/19/17 05:00 98 01/19/17 04:00 105 01/19/17 04:00 98.2 105 24 119/85 (96) 94 01/19/17 04:00 94 Nasal Cannula 4.00 01/19/17 03:48 92 Nasal Cannula 4.00 01/19/17 03:00 111 01/19/17 02:00 100 01/19/17 01:00 112 01/19/17 00:00 98.2 107 24 139/97 (111) 96 01/19/17 00:00 96 Nasal Cannula 4.00 01/19/17 00:00 104 01/18/17 23:00 116 01/18/17 22:00 112 01/18/17 21:20 94 Nasal Cannula 4.00 01/18/17 21:00 108 01/18/17 20:00 108 01/18/17 20:00 96 Nasal Cannula 4.00 01/18/17 20:00 98.3 113 22 114/89 (97) 96 01/18/17 15:41 93 Nasal Cannula 3.00 01/18/17 12:04 97.6 96 18 94/55 (68) 94 01/18/17 12:00 94 Nasal Cannula I/O 01/18/17 01/18/17 01/18/17 01/19/17 01/19/17 01/19/17 07:00 15:00 23:00 07:00 15:00 23:00 Intake Total 600 ml 240 ml Output Total 500 ml 350 ml Balance 100 ml -110 ml Intake Oral 600 ml 240 ml Output Urine Total 500 ml 350 ml # Bowel Movements 0 0 Result Diagram: 01/19/1734601/19/17346 Imaging Last Impressions Chest X-Ray 01/14/172111 Signed Impressions: Service Date/Time: , January 14, 2017 21:39 - CONCLUSION: Prominent basilar markings possibly secondary to patient being quite large and hypoaeration Henrry Whittington MD Objective Remarks GENERAL: Morbidly obese male in no acute distress on 2 L nasal cannula SKIN: Bilateral lower extremities with dry dressing CARDIOVASCULAR: Irregularly irregular without murmurs, gallops, or rubs. RESPIRATORY: Decreased breath sounds clear to auscultation GASTROINTESTINAL: Abdomen morbidly obese. Normal active bowel sounds MUSCULOSKELETAL: Bilateral lower extremity with bilateral lower extremity edema covered with dry dressing NEURO: Alert & Oriented x4 to person, place, time, situation. Moves all ext x4 Procedures Cardiac catheterization A/P Problem List: (1) Acute on chronic congestive heart failure ICD Code: I50.9 - Heart failure, unspecified (2) COPD exacerbation ICD Code: J44.1 - Chronic obstructive pulmonary disease with (acute) exacerbation Status: Chronic (3) Elevated troponin ICD Code: R74.8 - Abnormal levels of other serum enzymes Status: Acute (4) Atrial fibrillation with RVR ICD Code: I48.91 - Unspecified atrial fibrillation Status: Acute (5) Type 2 diabetes mellitus ICD Code: E11.9 - Type 2 diabetes mellitus without complications Status: Chronic (6) Wounds, multiple open, lower extremity ICD Code: S81.809A - Unspecified open wound, unspecified lower leg, initial encounter Status: Chronic Assessment and Plan In summary this is a 56-year-old male who was recently discharged from another hospital after he was treated for cellulitis, CHF, possible pneumonia. The patient is admitted to [place] for respiratory distress. He was found to be in A. fib with RVR, CHF, and elevated troponin. He also has cellulitis involving bilateral lower extremities. Acute on Chronic systolic CHF with chronic respiratory failure - continuous cardiac telemetry to monitor cardiac structure and function - BNP - 655 - monitor I and Os - Continue Lasix 40 and entresto. Wean oxygen to keep saturation at least 92%. Beta latrice discontinued secondary to wheezing. LifeVest ordered. Cardiac educator NSVT. Life vest as above COPD exacerbation: Obesity related resp insufficiency. Patient has chronic respiratory failure on home oxygen. Oxygen currently at 3 L we'll continue to wean down to home dose of 2 L - required Bi-PAP initially - supplemental oxygen titrated to maintain oxygen saturation > 92% - Duonebulizers q6h scheduled and q2h PRN wheezing. Hold off steroid for now since he is improving. COPD educator Troponin I elevation -Status post cardiac catheterization with RCA stenting. Continue Plavix for 8 weeks, aspirin and Lipitor. Beta latrice discontinued secondary to wheezing. Cannot be on MICHOACANO inhibitor on entresto - Risk factor modification A1c 7.9 and LDL 101 Atrial fibrillation with controlled ventricular response -Status post Cardizem drip -Continue oral Cardizem, digoxin and Xarelto Type 2 DM. Uncontrolled - Restart preprandial Humalog insulin. We will consider long-acting insulin, patient not keen on it. Diabetic education/educator - Accuchecks with SSI - hypoglycemia protocol Bilateral lower extremity chronic wounds and Cellulitis. - Wound care physician consulted - + MRSA - contact isolation - Continue clindamycin started January 15. Follow progress. - Patient will benefit from outpatient wound care when discharged. DVT prophylaxis -Xarelto Consult physical therapy. Per CM difficult SNF placement because of insurance Discharge Planning Discharge when cleared by cardiology Problem Qualifiers (1) Acute on chronic congestive heart failure: Qualified Codes: I50.23 - Acute on chronic systolic (congestive) heart failure (2) Type 2 diabetes mellitus: Qualified Codes: E11.622 - Type 2 diabetes mellitus with other skin ulcer (3) Wounds, multiple open, lower extremity: Qualified Codes: S81.809A - Unspecified open wound, unspecified lower leg, initial encounter Per Baca MD Jan 19, 2017 10:59
--- NOTE | 2017-01-19 11:10 | HHI.DS ---
Discharge Summary Admission Date Jan 14, 2017 at 23:57 Discharge Date: Jan 19, 2017 Admitting Diagnosis Afib with RVR, COPD exacerbation, troponin elevated (1) Acute on chronic congestive heart failure ICD Code: I50.9 - Heart failure, unspecified Diagnosis: Principal (2) COPD exacerbation ICD Code: J44.1 - Chronic obstructive pulmonary disease with (acute) exacerbation Diagnosis: Principal Status: Chronic (3) Elevated troponin ICD Code: R74.8 - Abnormal levels of other serum enzymes Diagnosis: Principal Status: Acute (4) Atrial fibrillation with RVR ICD Code: I48.91 - Unspecified atrial fibrillation Diagnosis: Principal Status: Acute (5) Type 2 diabetes mellitus ICD Code: E11.9 - Type 2 diabetes mellitus without complications Diagnosis: Principal Status: Chronic (6) Wounds, multiple open, lower extremity ICD Code: S81.809A - Unspecified open wound, unspecified lower leg, initial encounter Diagnosis: Principal Status: Chronic Procedures Cardiac catheterization Brief History - From Admission Written by Tatum Miramontes, acting as scribe for Dr. Gilmore on 01/15/17 at 00:37. The patient came into ED in severe respiratory distress and was wheezing on presentation and placed temporarily on BiPAP in ED. He is seen in ER on [place] with improvement in symptoms. The patient was at [facility] in [place] for 4 days for CHF/pneumonia, was discharged 3 days ago. He states he had chest pain, palpitations this morning. The pain radiated down his arms and was accompanied by diaphoresis and shortness of breath. He reports severe dyspnea with minimal exertion. He states he was wheezing all day with "some" cough and mucous production. He reports bilateral lower extremity pain and swelling with bilateral chronic johnson wounds and reddish discoloration from mid-johnson to feet- MRSA +. The patient reports having an IVC filter placed. He says he was given antibiotics at [facility]. Attempted Thoracentesis at [facility] 2 days ago but not enough fluid per patient. He reports nausea and diarrhea x 2 episodes since yesterday. He denies abdominal pain. The patient states he doesn't know what his EF is. records from [facility] show 01/06/17 imaging results - CT PA with no PE, moderate to large right pleural effusion, CXR with pulmonary edema - no echocardiogram noted CBC/BMP: 01/19/17 0347 01/19/17 0347 Significant Findings Laboratory Tests Test 01/16/17 11:24 01/16/17 19:06 01/17/17 06:00 01/17/17 16:16 Activated Partial Thromboplast Time 37.8 SEC (24.3-30.1) 35.7 SEC (24.3-30.1) 38.9 SEC (24.3-30.1) Test 01/17/17 23:47 01/18/17 06:00 01/18/17 21:42 01/19/17 03:47 Activated Partial Thromboplast Time 38.7 SEC (24.3-30.1) 52.6 SEC (24.3-30.1) 44.5 SEC (24.3-30.1) Platelet Count 128 TH/MM3 (150-450) Prothrombin Time 12.9 SEC (9.8-11.6) Random Glucose 181 MG/DL (74-106) 176 MG/DL (74-106) Carbon Dioxide Level 36.5 MEQ/L (21.0-32.0) 32.2 MEQ/L (21.0-32.0) Estimat Glomerular Filtration Rate 83 ML/MIN (>89) White Blood Count 11.4 TH/MM3 (4.0-11.0) Neutrophils (%) (Auto) 83.3 % (16.0-70.0) Neutrophils # (Auto) 9.5 TH/MM3 (1.8-7.7) LDL Cholesterol 114 MG/DL (0-99) HDL Cholesterol 38.9 MG/DL (40.0-60.0) Imaging Last Impressions Chest X-Ray 01/14/172111 Signed Impressions: Service Date/Time: December 21:39 - CONCLUSION: Prominent basilar markings possibly secondary to patient being quite large and hypoaeration Henrry Whittington MD PE at Discharge GENERAL: Morbidly obese male in no acute distress on 2 L nasal cannula SKIN: Bilateral lower extremities with dry dressing CARDIOVASCULAR: Irregularly irregular without murmurs, gallops, or rubs. RESPIRATORY: Decreased breath sounds clear to auscultation GASTROINTESTINAL: Abdomen morbidly obese. Normal active bowel sounds MUSCULOSKELETAL: Bilateral lower extremity with bilateral lower extremity edema covered with dry dressing NEURO: Alert & Oriented x4 to person, place, time, situation. Moves all ext x4 Hospital Course In summary this is a 56-year-old male who was recently discharged from another hospital after he was treated for cellulitis, CHF, possible pneumonia. The patient is admitted to [place] for respiratory distress. He was found to be in A. fib with RVR, CHF, and elevated troponin. He also has cellulitis involving bilateral lower extremities. Acute on Chronic systolic CHF with chronic respiratory failure - continuous cardiac telemetry to monitor cardiac structure and function - BNP - 655 - monitor I and Os - Continue Lasix 40 and entresto. Wean oxygen to keep saturation at least 92%. Beta latrice discontinued secondary to wheezing. LifeVest ordered. Cardiac educator JOSH. Life vest as above COPD exacerbation: Obesity related resp insufficiency. Patient has chronic respiratory failure on home oxygen. Oxygen currently at 3 L we'll continue to wean down to home dose of 2 L - required Bi-PAP initially - supplemental oxygen titrated to maintain oxygen saturation > 92% - Duonebulizers q6h scheduled and q2h PRN wheezing. Hold off steroid for now since he is improving. COPD educator Troponin I elevation -Status post cardiac catheterization with RCA stenting. Continue Plavix for 8 weeks, aspirin and Lipitor. Beta latrice discontinued secondary to wheezing. Cannot be on MICHOACANO inhibitor on entresto - Risk factor modification A1c 7.9 and LDL 101 Atrial fibrillation with controlled ventricular response -Status post Cardizem drip -Continue oral Cardizem, digoxin and Xarelto Type 2 DM. Uncontrolled - Restart preprandial Humalog insulin. We will consider long-acting insulin, patient not keen on it. Diabetic education/educator - Accuchecks with SSI - hypoglycemia protocol Bilateral lower extremity chronic wounds and Cellulitis. - Wound care physician consulted - + MRSA - contact isolation - Continue clindamycin started January 15. Follow progress. - Patient will benefit from outpatient wound care when discharged. DVT prophylaxis -Xarelto Consult physical therapy. Per CM difficult SNF placement because of insurance Pt Condition on Discharge: Stable Discharge Disposition: Disch w/ Home Health Serv Discharge Time: > 30 minutes Discharge Instructions DIET: Follow Instructions for: Heart Healthy Diet, Diabetic Diet Activities you can perform: Regular-No Restrictions Activities to Avoid: Driving Follow up Referrals: Cardiology - [address] Som Wakefield with Dr Som Wakefield PCP Follow-up - 1 Week Wound Care Clinic - 1 Week New Orders: BASIC METABOLIC PROF - 1 Week DIGOXIN - 1 Week New Medications: Defibrillator Jacket (Defibrillator Jacket) 1 Ea Device EA EXTERNAL ONCE for Cardiomyopathy, #1 3 Refills Energy = 150 Joules; VT Threshold = 150 BPM; VF Threshold = 200 BPM Use up to 90 days only Walker/Extended Frame (Walker/Extended Frame) 1 Mis Mis EA .ROUTE DIRECTED, #1 Atorvastatin (Atorvastatin) 40 Mg Tab 40 MG PO HS for Cholesterol Management, #30 TAB Clindamycin (Cleocin) 150 Mg Cap 450 MG PO Q6HR for Infection, #24 CAP Clopidogrel (Plavix) 75 Mg Tab 75 MG PO DAILY for Prevent Blood Clot, #30 TAB Digoxin (Digoxin) 0.25 Mg Tab 0.25 MG PO DAILY for Regulate Heart Beat, #30 TAB Diltiazem (Cardizem) 60 Mg Tab 60 MG PO Q6HR for Regulate Heart Beat, #120 TAB Isosorbide Mononitrate ER (Isosorbide Mononitrate ER) 30 Mg Svetlana 30 MG PO DAILY@07 for Blood Pressure Management, #30 TAB Sacubitril-Valsartan (Entresto) 24-26 Mg Tab 1 TAB PO BID for Prevent Heart Failure, #60 TAB Continued Medications: Albuterol Neb (Albuterol Neb) 2.5 Mg/3 Ml Neb 2.5 MG INH QID NEB albuterol-ibratropium Aspirin DR (Aspirin 81) 81 Mg Tabdr 81 MG PO DAILY, TAB 0 Refills Fluticasone-Salmeterol Inh (Advair Diskus Inh) 250-50 Mcg/Blist Aer 1 PUFF INH BID, #1 INHALER 0 Refills Rinse mouth after use. Furosemide (Furosemide) 40 Mg Tab 40 MG PO BID Insulin Lispro (Human) Inj (Humalog Kwikpen Pen Inj) 300 Unit/3 Ml Pen 15 UNITS SQ TIDAC for Blood Sugar Management, PEN 0 Refills Ipratropium Neb (Ipratropium Neb) 0.5 Mg/2.5 Ml Amp 0.5 MG NEB QID NEB PRN for SOB/WHEEZING, #180 NEBULE 0 Refills Nitroglycerin SL (Nitroglycerin SL) 0.4 Mg Subl 0.4 MG SL DIRECTED PRN for CHEST PAIN, #100 TAB.SL 0 Refills ONE TABLET UNDER THE TONGUE NEEDED FOR CHEST PAIN, MAY REPEAT EVERY FIVE MINUTES FOR A TOTAL OF 3 DOSES OR CALL 911 IF NO RELIEF Potassium Chloride ER (Potassium Chloride ER) 10 Meq Tab 10 MEQ PO DAILY Rivaroxaban (Xarelto) 20 Mg Tab 20 MG PO DAILY Discontinued Medications: Cefdinir (Cefdinir) 300 Mg Cap 300 MG PO BID for 10 Days Doxycycline (Monohydrate) (Doxycycline Monohydrate) 100 Mg Tab 100 MG PO BID Metoprolol Tartrate (Metoprolol Tartrate) 100 Mg Tab 100 MG PO BID Per Baca MD Jan 19, 2017 11:10
[2017-01-19] MEDS: DILTIAZEM HCL 60 MG TAB PO SCH ×4 (13:10→23:53)
[2017-01-19] MEDS ORDERED: IOHEXOL 350 MG/ML 100 ML BTL (for Cath Lab) OTHER ONE (13:47)
[2017-01-19] MEDS ORDERED: IOHEXOL 350 MG/ML 50 ML BTL (for Cath Lab) OTHER ONE (13:47)
[2017-01-19] MEDS: RESP: ALBUTEROL 2.5 MG/IPRATROPIUM 0.5 MG NEB (PRN) NEB (15:17)
--- NOTE | 2017-01-19 16:07 | EKG ---
Date Performed: 01/19/2017 Time Performed: 06:15:00 PTAGE: 56 years EKG: Atrial fibrillation with rapid ventricular response Inferior T wave changes are nonspecific Low QRS voltages in limb leads Abnormal ECG Compared to prior tracing no significant change PREVIOUS TRACING : 01/18/2017 20.02 DOCTOR: Woody Boogie Interpretating Date/Time 01/19/2017 16:05:13
--- NOTE | 2017-01-19 16:07 | EKG ---
Date Performed: 01/18/2017 Time Performed: 20:02:04 PTAGE: 56 years EKG: Atrial fibrillation with rapid ventricular response Rightward axis Inferior T wave changes are nonspecific Low QRS voltages in limb leads Abnormal ECG Compared to prior tracing no significant change PREVIOUS TRACING : 01/18/2017 10.16 DOCTOR: Woody Boogie Interpretating Date/Time 01/19/2017 16:05:00
[2017-01-19] MEDS: ATORVASTATIN 40 MG TAB PO SCH (21:00)
[2017-01-20] VITALS (31 sets, daily range): BP systolic 92–139; BP diastolic 55–85; PULSE 93–122; RESP 20–28; TEMP 98–99.5; O2SAT 94–97
[2017-01-20] MEDS: RESP: ALBUTEROL 2.5 MG/IPRATROPIUM 0.5 MG NEB (PRN) NEB ×2 (00:53→20:23)
[2017-01-20] MEDS: ZOLPIDEM TARTRATE 5 MG TAB PO PRN ×2 (01:06→23:40)
[2017-01-20] MEDS: DILTIAZEM HCL 60 MG TAB PO SCH ×5 (01:06→23:40)
[2017-01-20] MEDS: CLINDAMYCIN 150 MG CAP PO SCH ×4 (05:48→23:40)
[2017-01-20] MEDS: ISOSORBIDE MONONITRATE 30 MG TAB PO SCH (05:50)
--- NOTE | 2017-01-20 07:56 | PD.CARD.PN ---
Subjective Subjective Remarks grumpy this morning "everybody has been in my room today" No events Objective Medications Current Medications Medications (Trade) Dose Ordered Sig/Jim Route Start Time Stop Time Status Last Admin (NS Flush) 2 ml UNSCH PRN IV FLUSH 01/15/17 00:15 01/17/17 23:30 (NS Flush) 2 ml BID IV FLUSH 01/15/17 09:00 01/19/17 21:37 (Narcan Inj) 0.4 mg UNSCH PRN IV PUSH 01/15/17 00:15 (Duoneb Neb) 1 ampule Q2HR NEB PRN NEB 01/15/17 00:15 01/20/17 00:53 (Lactinex) 1 tab TID PO 01/15/17 09:00 01/19/17 18:18 (Ecotrin Ec) 81 mg DAILY PO 01/15/17 09:00 01/19/17 09:34 (KCl) 10 meq DAILY PO 01/15/17 09:00 01/19/17 09:33 (Symbicort 160-4.5 Inh) 2 puff BID INH 01/15/17 09:00 01/19/17 09:00 (Cleocin) 450 mg Q6HR PO 01/15/17 06:00 01/20/17 05:48 (D50w (Vial) Inj) 50 ml UNSCH PRN IV PUSH 01/15/17 13:15 (Glucagon Inj) 1 mg UNSCH PRN OTHER 01/15/17 13:15 (NovoLOG SUPPLEMENTAL SCALE) 1 ACHS SLIDING SCALE SQ 01/16/17 12:00 01/19/17 13:14 (Catapres) 0.1 mg Q6H PRN PO 01/16/17 11:00 (NovoLOG INJ) 15 units TIDAC SQ 01/16/17 12:00 01/19/17 18:19 (Tylenol) 650 mg Q4H PRN PO 01/16/17 13:00 (Zofran Inj) 4 mg Q6H PRN IVP 01/16/17 13:00 01/17/17 23:29 (Ambien) 5 mg HS PRN PO 01/16/17 13:00 01/20/17 01:06 (Tylenol) 650 mg Q6H PRN PO 01/16/17 13:00 01/18/17 06:25 (Celeste-Colace) 1 tab BID PO 01/16/17 13:00 01/19/17 21:36 (Milk Of Magnesia Liq) 30 ml Q12H PRN PO 01/16/17 13:00 (Senokot) 17.2 mg Q12H PRN PO 01/16/17 13:00 (Dulcolax Supp) 10 mg DAILY PRN RECTAL 01/16/17 13:00 (Lactulose Liq) 30 ml DAILY PRN PO 01/16/17 13:00 (Vistaril) 25 mg Q6H PRN PO 01/17/17 08:15 (Pill Splitter) 1 ea UNSCH PRN OTHER 01/17/17 12:30 (Entresto 24-26 Mg) 1 tab BID PO 01/17/17 21:00 01/19/17 21:36 (Morphine Inj) 2 mg Q30M PRN IV PUSH 01/18/17 15:30 (Plavix) 75 mg DAILY PO 01/19/17 09:00 01/19/17 09:33 (Lipitor) 40 mg HS PO 01/18/17 21:00 01/19/17 21:00 (Xarelto) 20 mg DAILY PO 01/19/17 09:00 01/19/17 09:33 (Imdur) 30 mg DAILY@07 PO 01/19/17 07:00 01/19/17 06:31 (Lasix) 40 mg BID@09,18 PO 01/18/17 18:00 01/19/17 18:18 (Lanoxin) 0.25 mg DAILY PO 01/19/17 09:00 01/19/17 09:00 (Cardizem) 60 mg Q6HR PO 01/19/17 12:00 01/20/17 05:48 Vital Signs / I&O Vital Signs Date Time Temp Pulse Resp B/P (MAP) Pulse Ox O2 Delivery O2 Flow Rate FiO2 01/20/17 07:42 98.8 110 28 100/69 (79) 94 01/20/17 07:41 110 01/20/17 06:00 108 01/20/17 05:00 108 01/20/17 04:39 98.3 110 20 106/66 (79) 01/20/17 04:39 95 Nasal Cannula 2.00 01/20/17 04:00 110 01/20/17 02:01 93 01/20/17 02:00 104 01/20/17 01:00 110 01/20/17 00:53 94 Nasal Cannula 2.00 01/20/17 00:00 98.0 104 20 92/55 (67) 01/20/17 00:00 95 Nasal Cannula 2.00 01/20/17 00:00 104 01/19/17 23:00 105 01/19/17 22:00 100 01/19/17 21:00 98.0 98 20 106/51 (69) 01/19/17 21:00 94 Nasal Cannula 2.00 01/19/17 21:00 110 01/19/17 20:00 108 01/19/17 19:00 104 01/19/17 18:00 102 01/19/17 17:00 104 01/19/17 16:00 105 01/19/17 15:00 106 01/19/17 15:00 94 Nasal Cannula 2.00 01/19/17 15:00 97.8 104 20 136/88 (104) 01/19/17 14:00 116 01/19/17 13:00 114 01/19/17 12:00 112 01/19/17 11:00 113 01/19/17 11:00 97.4 111 20 140/96 (111) 01/19/17 11:00 94 Nasal Cannula 2.00 01/19/17 10:00 110 01/19/17 09:00 114 01/19/17 08:00 122 01/19/17 08:00 97.1 100 20 116/73 (87) 95 01/19/17 08:00 108 I/O 01/19/17 01/19/17 01/19/17 01/20/17 01/20/17 01/20/17 07:00 15:00 23:00 07:00 15:00 23:00 Intake Total 240 ml 720 ml Output Total 350 ml 1000 ml Balance -110 ml -280 ml Intake Oral 240 ml 720 ml Output Urine Total 350 ml 1000 ml # Bowel Movements 0 1 Physical Exam GENERAL: SKIN: Warm and dry. HEAD: Normocephalic. EYES: No scleral icterus. No injection or drainage. NECK: Supple, trachea midline. No JVD or lymphadenopathy. CARDIOVASCULAR: IR IR. RESPIRATORY: Breath sounds equal bilaterally. No accessory muscle use. GASTROINTESTINAL: Abdomen soft, non-tender, nondistended. MUSCULOSKELETAL: No cyanosis, or edema. BACK: Nontender without obvious deformity. No CVA tenderness. Imaging Last Impressions Chest X-Ray 01/14/172111 Signed Impressions: Service Date/Time: , January 14, 2017 21:39 - CONCLUSION: Prominent basilar markings possibly secondary to patient being quite large and hypoaeration Henrry Whittington MD Assessment and Plan Problem List: (1) Atrial fibrillation with RVR ICD Codes: I48.91 - Unspecified atrial fibrillation Status: Acute (2) Respiratory distress ICD Codes: R06.00 - Dyspnea, unspecified Status: Acute (3) Elevated troponin ICD Codes: R74.8 - Abnormal levels of other serum enzymes Status: Acute (4) Acute on chronic congestive heart failure ICD Codes: I50.9 - Heart failure, unspecified (5) Morbid obesity ICD Codes: E66.01 - Morbid (severe) obesity due to excess calories (6) Cardiomyopathy ICD Codes: I42.9 - Cardiomyopathy, unspecified Status: Acute Assessment and Plan cont med regimen still slightly tachycardiac but due to low BP unable to titrate meds further. dig level low. Dig IV x 1 cont asa plavix xarelto DC planning will sign off call with questions Problem Qualifiers (1) Acute on chronic congestive heart failure: Qualified Codes: I50.23 - Acute on chronic systolic (congestive) heart failure (2) Cardiomyopathy: Qualified Codes: I42.9 - Cardiomyopathy, unspecified Minor,Lorenzo Dougherty MD Jan 20, 2017 07:56
[2017-01-20] MEDS ORDERED: DIGOXIN 0.5 MG/2 ML VIAL IV PUSH ONE (08:00)
[2017-01-20] MEDS: ASPIRIN EC 81 MG TABEC PO SCH (08:09)
[2017-01-20] MEDS: SACUBITRIL/VALSARTAN 24 MG-26 MG TAB PO SCH ×2 (08:10→21:19)
[2017-01-20] MEDS: FUROSEMIDE 40 MG TAB PO SCH ×2 (08:10→17:49)
[2017-01-20] MEDS: POTASSIUM CHLORIDE 10 MEQ CONTROLLED RELEASE TAB PO SCH (08:10)
[2017-01-20] MEDS: DIGOXIN 0.25 MG TAB PO SCH (08:10)
[2017-01-20] MEDS: RIVAROXABAN 20 MG TAB PO SCH (08:10)
[2017-01-20] MEDS: BUDESONIDE-FORMOTEROL 160/4.5 MCG INHALER INH SCH ×2 (08:11→21:00)
[2017-01-20] MEDS: DOCUSATE SODIUM 50 MG/SENNA 8.6 MG TAB PO SCH ×2 (08:11→21:19)
[2017-01-20] MEDS: CLOPIDOGREL 75 MG TAB PO SCH (08:11)
[2017-01-20] MEDS: LACTOBACILLUS ACIDOPHILUS TAB PO SCH ×3 (08:11→17:49)
[2017-01-20] MEDS: SODIUM CHLORIDE 0.9% FLUSH 10 ML FLUSH IV FLUSH SCH ×2 (08:11→21:00)
[2017-01-20] MEDS: INSULIN ASPART 1,000 UNITS/10 ML VIAL SQ SCH ×3 (08:17→16:45)
[2017-01-20] MEDS: INSULIN ASPART SUPPLEMENTAL SCALE SQ SCH ×4 (08:17→21:00)
--- NOTE | 2017-01-20 12:42 | HHI.PR ---
Subjective Remarks Pt very anxious about discharge planning. States he has no where to go and worries that he will get kicked out w a life vest. complains about swelling in his legs but hasn't been elevating them. discussed w CM, waiting on someone for CM to approve payment for one month for the life vest and company will pay the other 2 months. She still hasn't heard back from a few nursing homes, she will reach out to them soon. would like for pt to get something for anxiety Objective Vitals Vital Signs Date Time Temp Pulse Resp B/P (MAP) Pulse Ox O2 Delivery O2 Flow Rate FiO2 01/20/17 12:00 114 01/20/17 12:00 94 2.00 01/20/17 11:09 99.1 107 24 118/69 (85) 94 01/20/17 11:00 116 01/20/17 10:00 118 01/20/17 09:00 104 01/20/17 08:00 94 2.00 01/20/17 08:00 110 01/20/17 07:42 98.8 110 28 100/69 (79) 94 01/20/17 07:41 110 01/20/17 07:03 104 01/20/17 06:00 108 01/20/17 05:00 108 01/20/17 04:39 98.3 110 20 106/66 (79) 01/20/17 04:39 95 Nasal Cannula 2.00 01/20/17 04:00 110 01/20/17 02:01 93 01/20/17 02:00 104 01/20/17 01:00 110 01/20/17 00:53 94 Nasal Cannula 2.00 01/20/17 00:00 98.0 104 20 92/55 (67) 01/20/17 00:00 95 Nasal Cannula 2.00 01/20/17 00:00 104 01/19/17 23:00 105 01/19/17 22:00 100 01/19/17 21:00 98.0 98 20 106/51 (69) 01/19/17 21:00 94 Nasal Cannula 2.00 01/19/17 21:00 110 01/19/17 20:00 108 01/19/17 19:00 104 01/19/17 18:00 102 01/19/17 17:00 104 01/19/17 16:00 105 01/19/17 15:00 106 01/19/17 15:00 94 Nasal Cannula 2.00 01/19/17 15:00 97.8 104 20 136/88 (104) 01/19/17 14:00 116 01/19/17 13:00 114 I/O 01/19/17 01/19/17 01/19/17 01/20/17 01/20/17 01/20/17 07:00 15:00 23:00 07:00 15:00 23:00 Intake Total 240 ml 720 ml Output Total 350 ml 1000 ml Balance -110 ml -280 ml Intake Oral 240 ml 720 ml Output Urine Total 350 ml 1000 ml # Bowel Movements 0 1 Result Diagram: 01/19/1734601/19/17346 Imaging Last Impressions Chest X-Ray 01/14/172111 Signed Impressions: Service Date/Time: December 21:39 - CONCLUSION: Prominent basilar markings possibly secondary to patient being quite large and hypoaeration Henrry Whittington MD Objective Remarks GENERAL: Morbidly obese male in no acute distress on 2 L nasal cannula SKIN: Bilateral lower extremities with dry dressing CARDIOVASCULAR: Irregularly irregular without murmurs. RESPIRATORY: Decreased breath sounds clear to auscultation and no wheezing GASTROINTESTINAL: Abdomen morbidly obese. Normal active bowel sounds MUSCULOSKELETAL: Bilateral lower extremity with edema covered with dry dressing NEURO: Alert & Oriented. Moves all ext x4 Psych: anxious Procedures Cardiac catheterization A/P Problem List: (1) Acute on chronic congestive heart failure ICD Code: I50.9 - Heart failure, unspecified (2) COPD exacerbation ICD Code: J44.1 - Chronic obstructive pulmonary disease with (acute) exacerbation Status: Chronic (3) Elevated troponin ICD Code: R74.8 - Abnormal levels of other serum enzymes Status: Acute (4) Atrial fibrillation with RVR ICD Code: I48.91 - Unspecified atrial fibrillation Status: Acute (5) Type 2 diabetes mellitus ICD Code: E11.9 - Type 2 diabetes mellitus without complications Status: Chronic (6) Wounds, multiple open, lower extremity ICD Code: S81.809A - Unspecified open wound, unspecified lower leg, initial encounter Status: Chronic Assessment and Plan 56-year-old male who was recently discharged from another hospital after he was treated for cellulitis, CHF, possible pneumonia. The patient was admitted to [facility] for respiratory distress. He was found to be in A. fib with RVR, CHF, and elevated troponin. He also has cellulitis involving bilateral lower extremities. Acute on Chronic systolic CHF with chronic respiratory failure - continuous cardiac telemetry to monitor cardiac structure and function - BNP - 655 - monitor I and Os - Continue Lasix 40 and entresto. Wean oxygen to keep saturation at least 92%. Beta latrice discontinued secondary to wheezing. LifeVest ordered, Awaiting for CM to get it approved. Cardiac educator. cont med regimen Pt is still slightly tachycardiac but due to low BP unable to titrate meds further per cards. dig level low. Dig IV x 1 cont asa plavix xarelto NSVT. Life vest as above COPD exacerbation: Obesity related resp insufficiency. Patient has chronic respiratory failure on home oxygen. Oxygen currently at 3 L we'll continue to wean down to home dose of 2 L - required Bi-PAP initially - supplemental oxygen titrated to maintain oxygen saturation > 92% - Duonebulizers q6h scheduled and q2h PRN wheezing. Hold off steroid for now since he is improving. COPD educator Troponin I elevation -Status post cardiac catheterization with RCA stenting. Continue Plavix for 8 weeks, aspirin and Lipitor. Beta latrice discontinued secondary to wheezing. Cannot be on MICHOACANO inhibitor on entresto - Risk factor modification A1c 7.9 and LDL 101 Atrial fibrillation with controlled ventricular response -Status post Cardizem drip -Continue oral Cardizem, digoxin and Xarelto Type 2 DM. Uncontrolled - on preprandial Humalog insulin. May need Long-acting insulin but patient not keen on it, f/u w PCP as an outpatient for adjustment and transition to long acting insulin. Diabetic education/educator - Accuchecks with SSI - hypoglycemia protocol Bilateral lower extremity chronic wounds and Cellulitis. - Wound care physician consulted - + MRSA - contact isolation - Continue clindamycin started January 15. Follow progress. - Patient will benefit from outpatient wound care when discharged. DVT prophylaxis -Xarelto Discharge Planning CM assisting w d/c planning still waiting on life vest to be approved and finding [facility] to accept patient Problem Qualifiers (1) Acute on chronic congestive heart failure: Qualified Codes: I50.23 - Acute on chronic systolic (congestive) heart failure (2) Type 2 diabetes mellitus: Qualified Codes: E11.622 - Type 2 diabetes mellitus with other skin ulcer (3) Wounds, multiple open, lower extremity: Qualified Codes: S81.809A - Unspecified open wound, unspecified lower leg, initial encounter Jeanie Vega MD Jan 20, 2017 12:42
[2017-01-20] MEDS ORDERED: LORazepam 1 MG TAB PO ONE (13:00)
[2017-01-20] MEDS: ATORVASTATIN 40 MG TAB PO SCH (21:19)
[2017-01-21] VITALS (9 sets, daily range): BP systolic 103–129; BP diastolic 64–92; PULSE 91–116; RESP 18–20; TEMP 97.8–98.6; O2SAT 93–95
[2017-01-21] MEDS: DILTIAZEM HCL 60 MG TAB PO SCH ×3 (05:12→17:23)
[2017-01-21] MEDS: CLINDAMYCIN 150 MG CAP PO SCH ×3 (05:13→17:23)
[2017-01-21 05:53] LABS: HEMATOCRIT 46.7 % (39.0-51.0); MEAN CELL VOLUME 83.5 FL (80.0-100.0); MEAN CORPUSCULAR HEMOGLOBIN 27.5 PG (27.0-34.0); MEAN CORPUSCULAR HGB CONC 32.9 % (32.0-36.0); PLATELET COUNT 142 TH/MM3 (150-450); RED CELL DISTRIBUTION WIDTH 16.7 % (11.6-17.2); REVIEW FLAG FINAL; WHITE BLOOD COUNT 10.9 TH/MM3 (4.0-11.0)
[2017-01-21] MEDS: ISOSORBIDE MONONITRATE 30 MG TAB PO SCH ×2 (06:01→09:43)
[2017-01-21] MEDS: DIGOXIN 0.25 MG TAB PO SCH (09:43)
[2017-01-21] MEDS: DOCUSATE SODIUM 50 MG/SENNA 8.6 MG TAB PO SCH ×2 (09:43→21:46)
[2017-01-21] MEDS: ASPIRIN EC 81 MG TABEC PO SCH (09:43)
[2017-01-21] MEDS: POTASSIUM CHLORIDE 10 MEQ CONTROLLED RELEASE TAB PO SCH (09:43)
[2017-01-21] MEDS: LACTOBACILLUS ACIDOPHILUS TAB PO SCH ×3 (09:43→17:23)
[2017-01-21] MEDS: INSULIN ASPART 1,000 UNITS/10 ML VIAL SQ SCH ×3 (09:44→17:24)
[2017-01-21] MEDS: FUROSEMIDE 40 MG TAB PO SCH ×2 (09:44→17:23)
[2017-01-21] MEDS: SODIUM CHLORIDE 0.9% FLUSH 10 ML FLUSH IV FLUSH SCH ×2 (09:44→21:47)
[2017-01-21] MEDS: RIVAROXABAN 20 MG TAB PO SCH (09:44)
[2017-01-21] MEDS: INSULIN ASPART SUPPLEMENTAL SCALE SQ SCH ×4 (09:44→21:00)
[2017-01-21] MEDS: CLOPIDOGREL 75 MG TAB PO SCH (09:44)
[2017-01-21] MEDS ORDERED: CLIN150 PO (09:47)
--- NOTE | 2017-01-21 10:14 | HHI.PR ---
Subjective Remarks Follow-up visit DM 2, CHF, EF 15-20%. Patient seen and examined today. On 2L NC states shortness of breath is not worsening. Reports he is trying to get a nap, slept okay last night but wanting to sleep some more. Denies pain and discomfort. Denies chest pain, palpitations, headaches, dizziness. Denies fevers , chills, n/v/d. Denies dysuria. Objective Vitals Vital Signs Date Time Temp Pulse Resp B/P (MAP) Pulse Ox O2 Delivery O2 Flow Rate FiO2 01/21/17 04:00 97 Nasal Cannula 2.00 01/21/17 04:00 98.6 91 18 128/92 (104) 95 01/21/17 01:29 107 01/21/17 00:00 97 Nasal Cannula 2.00 01/20/17 23:20 98.2 102 20 134/75 (94) 94 01/20/17 23:00 116 01/20/17 22:00 108 01/20/17 21:00 104 01/20/17 20:33 97 Nasal Cannula 2.00 01/20/17 20:00 110 01/20/17 19:22 97 2.00 01/20/17 19:20 98.6 110 20 127/72 (90) 97 01/20/17 19:00 106 01/20/17 18:11 111 01/20/17 16:13 110 01/20/17 15:00 97 2.00 01/20/17 15:00 99.5 108 22 139/85 (103) 97 01/20/17 15:00 101 01/20/17 14:18 100 01/20/17 13:04 122 01/20/17 12:00 114 01/20/17 12:00 94 2.00 01/20/17 11:09 99.1 107 24 118/69 (85) 94 01/20/17 11:00 116 I/O 01/20/17 01/20/17 01/20/17 01/21/17 01/21/17 01/21/17 07:00 15:00 23:00 07:00 15:00 23:00 Intake Total 720 ml 620 ml 240 ml Output Total 1000 ml 350 ml Balance -280 ml 270 ml 240 ml Intake Oral 720 ml 620 ml 240 ml Output Urine Total 1000 ml 350 ml # Voids 3 2 # Bowel Movements 1 Result Diagram: 01/21/17 0521 01/19/17 0347 Imaging Last Impressions Chest X-Ray 01/14/172111 Signed Impressions: Service Date/Time: , January 14, 2017 21:39 - CONCLUSION: Prominent basilar markings possibly secondary to patient being quite large and hypoaeration Henrry Whittington MD Objective Remarks GENERAL: This is an obese, well-developed patient, in no apparent distress. SKIN: Warm and dry. HEENT: Normocephalic. Pupils equal round and reactive. Nose without bleeding. Airway patent. NECK: Trachea midline. No JVD. Supple. CARDIOVASCULAR: Regular rate and rhythm without murmurs, gallops, or rubs. Life Vest in place. RESPIRATORY: Diminished bases. Expiratory wheezes present. GASTROINTESTINAL: Abdomen soft, non-tender, obese. Bowel Sounds normoactive x4. MUSCULOSKELETAL: Extremities without clubbing, cyanosis. BLE +2 edema. NEUROLOGICAL: Awake and alert. Oriented to place, person. No focal neuro deficit. Moves all extremities. Normal speech. Procedures Cardiac catheterization A/P Problem List: (1) Acute on chronic congestive heart failure ICD Code: I50.9 - Heart failure, unspecified (2) COPD exacerbation ICD Code: J44.1 - Chronic obstructive pulmonary disease with (acute) exacerbation Status: Chronic (3) Elevated troponin ICD Code: R74.8 - Abnormal levels of other serum enzymes Status: Acute (4) Atrial fibrillation with RVR ICD Code: I48.91 - Unspecified atrial fibrillation Status: Acute (5) Type 2 diabetes mellitus ICD Code: E11.9 - Type 2 diabetes mellitus without complications Status: Chronic (6) Wounds, multiple open, lower extremity ICD Code: S81.809A - Unspecified open wound, unspecified lower leg, initial encounter Status: Chronic Assessment and Plan Patient is a 56-year-old male who was recently discharged from another hospital after he was treated for cellulitis, CHF, possible pneumonia. The patient is admitted to [facility] for respiratory distress. He was found to be in A. fib with RVR, CHF, and elevated troponin. He also has cellulitis involving bilateral lower extremities. Acute on Chronic systolic CHF with chronic respiratory failure - continuous cardiac telemetry to monitor cardiac structure and function - Initial BNP - 655 - monitor I and Os - Continue Lasix 40 and Entresto. Wean oxygen to keep saturation at least 92 %. - Beta latrice discontinued secondary to wheezing. - LifeVest ordered. Cardiac educator. - Pending Life Vest for home use. - PT for activity NSVT. Life vest as above COPD exacerbation: Obesity related resp insufficiency. Patient has chronic respiratory failure on home oxygen. Oxygen currently at 2 L. - required Bi-PAP initially - supplemental oxygen titrated to maintain oxygen saturation > 92% - Hold off steroid for now since he is improving. Denies increasing SOB/ Dyspnea. COPD educator - Duonebulizers QID scheduled and q2h PRN wheezing. Troponin I elevation -Status post cardiac catheterization with RCA stenting. Continue Plavix for 8 weeks, aspirin and Lipitor. - Beta latrice discontinued secondary to wheezing. Cannot be on MICHOACANO inhibitor on Entresto - Risk factor modification A1c 7.9 and LDL 101 Atrial fibrillation with controlled ventricular response -Status post Cardizem drip -Continue oral Cardizem, digoxin and Xarelto Type 2 DM. Uncontrolled - Restart preprandial Humalog insulin. We will consider long-acting insulin , patient not keen on it. Diabetic education/educator - Accuchecks with SSI - Monitor for hypoglycemia Bilateral lower extremity chronic wounds and Cellulitis. - Wound care physician consulted - + MRSA, contact isolation - Continue clindamycin started January 15. Follow progress. - Patient will benefit from outpatient wound care when discharged. DVT prophylaxis Oh Discuss with patient, nursing, Dr. Baca Discharge Planning Plan to DC to SNF vs Home with [facility]. Pending LifeVest procurement CM Following. Cardiology cleared him for DC. Problem Qualifiers (1) Acute on chronic congestive heart failure: Qualified Codes: I50.23 - Acute on chronic systolic (congestive) heart failure (2) Type 2 diabetes mellitus: Qualified Codes: E11.622 - Type 2 diabetes mellitus with other skin ulcer (3) Wounds, multiple open, lower extremity: Qualified Codes: S81.809A - Unspecified open wound, unspecified lower leg, initial encounter Ariel San Jan 21, 2017 10:14 am
[2017-01-21] MEDS: BUDESONIDE-FORMOTEROL 160/4.5 MCG INHALER INH SCH ×2 (12:19→21:00)
[2017-01-21] MEDS: SACUBITRIL/VALSARTAN 24 MG-26 MG TAB PO SCH ×2 (12:24→21:46)
--- NOTE | 2017-01-21 12:43 | HHI.DS ---
Discharge Summary Admission Date Jan 14, 2017 at 23:57 Discharge Date: Jan 22, 2017 Admitting Diagnosis Afib with RVR, COPD exacerbation, troponin elevated (1) Acute on chronic congestive heart failure ICD Code: I50.9 - Heart failure, unspecified Diagnosis: Principal (2) COPD exacerbation ICD Code: J44.1 - Chronic obstructive pulmonary disease with (acute) exacerbation Diagnosis: Principal Status: Chronic (3) Elevated troponin ICD Code: R74.8 - Abnormal levels of other serum enzymes Diagnosis: Principal Status: Acute (4) Atrial fibrillation with RVR ICD Code: I48.91 - Unspecified atrial fibrillation Diagnosis: Principal Status: Acute (5) Type 2 diabetes mellitus ICD Code: E11.9 - Type 2 diabetes mellitus without complications Diagnosis: Principal Status: Chronic (6) Wounds, multiple open, lower extremity ICD Code: S81.809A - Unspecified open wound, unspecified lower leg, initial encounter Diagnosis: Principal Status: Chronic Procedures Cardiac catheterization Brief History - From Admission Written by Tatum Miramontes, acting as scribe for Dr. Gilmore on 01/15/17 at 00:37. The patient came into ED in severe respiratory distress and was wheezing on presentation and placed temporarily on BiPAP in ED. He is seen in ER on [place] with improvement in symptoms. The patient was at [facility] in [place] for 4 days for CHF/pneumonia, was discharged 3 days ago. He states he had chest pain, palpitations this morning. The pain radiated down his arms and was accompanied by diaphoresis and shortness of breath. He reports severe dyspnea with minimal exertion. He states he was wheezing all day with "some" cough and mucous production. He reports bilateral lower extremity pain and swelling with bilateral chronic johnson wounds and reddish discoloration from mid-johnson to feet- MRSA +. The patient reports having an IVC filter placed. He says he was given antibiotics at [facility]. Attempted Thoracentesis at [facility] 2 days ago but not enough fluid per patient. He reports nausea and diarrhea x 2 episodes since yesterday. He denies abdominal pain. The patient states he doesn't know what his EF is. records from [facility] show 01/06/17 imaging results - CT PA with no PE, moderate to large right pleural effusion, CXR with pulmonary edema - no echocardiogram noted CBC/BMP: 01/21/17 0521 01/19/17 0347 Significant Findings Laboratory Tests Test 01/18/17 21:42 01/19/17 03:47 01/21/17 05:21 Activated Partial Thromboplast Time 44.5 SEC (24.3-30.1) Random Glucose 181 MG/DL (74-106) 176 MG/DL (74-106) Carbon Dioxide Level 36.5 MEQ/L (21.0-32.0) 32.2 MEQ/L (21.0-32.0) Estimat Glomerular Filtration Rate 83 ML/MIN (>89) White Blood Count 11.4 TH/MM3 (4.0-11.0) Neutrophils (%) (Auto) 83.3 % (16.0-70.0) Neutrophils # (Auto) 9.5 TH/MM3 (1.8-7.7) LDL Cholesterol 114 MG/DL (0-99) HDL Cholesterol 38.9 MG/DL (40.0-60.0) Digoxin Level LESS THAN 0.1 NG/ML Platelet Count 142 TH/MM3 (150-450) Imaging Last Impressions Chest X-Ray 01/14/172111 Signed Impressions: Service Date/Time: , January 14, 2017 21:39 - CONCLUSION: Prominent basilar markings possibly secondary to patient being quite large and hypoaeration Henrry Whittington MD PE at Discharge GENERAL: This is an obese, well-developed patient, in no apparent distress. SKIN: Warm and dry. HEENT: Normocephalic. Pupils equal round and reactive. Nose without bleeding. Airway patent. NECK: Trachea midline. No JVD. Supple. CARDIOVASCULAR: Regular rate and rhythm without murmurs, gallops, or rubs. Life Vest in place. RESPIRATORY: Diminished bases. Expiratory wheezes present. GASTROINTESTINAL: Abdomen soft, non-tender, obese. Bowel Sounds normoactive x4. MUSCULOSKELETAL: Extremities without clubbing, cyanosis. BLE +2 edema. NEUROLOGICAL: Awake and alert. Oriented to place, person. No focal neuro deficit. Moves all extremities. Normal speech. Hospital Course Patient is a 56-year-old male who was recently discharged from another hospital after he was treated for cellulitis, CHF, possible pneumonia. The patient is admitted to [place] for respiratory distress. He was found to be in A. fib with RVR, CHF, and elevated troponin. He also has cellulitis involving bilateral lower extremities. Acute on Chronic systolic CHF with chronic respiratory failure. Improving continue Lasix and Entresto. Wean oxygen to keep saturation at least 92%. - Beta latrice discontinued secondary to wheezing. - LifeVest Cardiac educator. NSVT. Life vest as above COPD exacerbation: Obesity related resp insufficiency. Patient has chronic respiratory failure on home oxygen. Oxygen currently at 2 L. - COPD educator - Duonebulizers QID scheduled and q2h PRN wheezing. Troponin I elevation secondary to CAD -Status post cardiac catheterization with RCA stenting. Continue Plavix for 8 weeks, aspirin and Lipitor. - Beta latrice discontinued secondary to wheezing. Cannot be on MICHOACANO inhibitor on Entresto - Risk factor modification A1c 7.9 and LDL 101 Atrial fibrillation with controlled ventricular response -Status post Cardizem drip -Continue oral Cardizem, digoxin and Xarelto Type 2 DM. Uncontrolled - Restart preprandial Humalog insulin. We will consider long-acting insulin , patient not keen on it. Diabetic education/educator - Accuchecks with SSI - Monitor for hypoglycemia Bilateral lower extremity chronic wounds and Cellulitis. - Wound care physician consulted - + MRSA, contact isolation - Continue clindamycin started January 15. Follow progress. - Patient will benefit from outpatient wound care when discharged. DVT prophylaxis Xarelto Pt Condition on Discharge: Stable Discharge Disposition: Disch w/ Home Health Serv Discharge Time: > 30 minutes Discharge Instructions DIET: Follow Instructions for: Heart Healthy Diet, Diabetic Diet Activities you can perform: Regular-No Restrictions Activities to Avoid: Driving Follow up Referrals: Cardiology - [address] Som Wakefield with Dr Som Wakefield PCP Follow-up - 1 Week Wound Care Clinic - 1 Week New Orders: BASIC METABOLIC PROF - 1 Week DIGOXIN - 1 Week New Medications: Defibrillator Jacket (Defibrillator Jacket) 1 Ea Device EA EXTERNAL ONCE for Cardiomyopathy, #1 3 Refills Energy = 150 Joules; VT Threshold = 150 BPM; VF Threshold = 200 BPM Use up to 90 days only Walker/Extended Frame (Walker/Extended Frame) 1 Mis Mis EA .ROUTE DIRECTED, #1 Atorvastatin (Atorvastatin) 40 Mg Tab 40 MG PO HS for Cholesterol Management, #30 TAB Clindamycin (Cleocin) 150 Mg Cap 450 MG PO Q6HR for Infection, #48 CAP Clopidogrel (Plavix) 75 Mg Tab 75 MG PO DAILY for Prevent Blood Clot, #30 TAB Digoxin (Digoxin) 0.25 Mg Tab 0.25 MG PO DAILY for Regulate Heart Beat, #30 TAB Diltiazem (Cardizem) 60 Mg Tab 60 MG PO Q6HR for Regulate Heart Beat, #120 TAB Isosorbide Mononitrate ER (Isosorbide Mononitrate ER) 30 Mg Svetlana 30 MG PO DAILY@07 for Blood Pressure Management, #30 TAB Sacubitril-Valsartan (Entresto) 24-26 Mg Tab 1 TAB PO BID for Prevent Heart Failure, #60 TAB Continued Medications: Albuterol Neb (Albuterol Neb) 2.5 Mg/3 Ml Neb 2.5 MG INH QID NEB albuterol-ibratropium Aspirin DR (Aspirin 81) 81 Mg Tabdr 81 MG PO DAILY, TAB 0 Refills Fluticasone-Salmeterol Inh (Advair Diskus Inh) 250-50 Mcg/Blist Aer 1 PUFF INH BID, #1 INHALER 0 Refills Rinse mouth after use. Furosemide (Furosemide) 40 Mg Tab 40 MG PO BID Insulin Lispro (Human) Inj (Humalog Kwikpen Pen Inj) 300 Unit/3 Ml Pen 15 UNITS SQ TIDAC for Blood Sugar Management, PEN 0 Refills Ipratropium Neb (Ipratropium Neb) 0.5 Mg/2.5 Ml Amp 0.5 MG NEB QID NEB PRN for SOB/WHEEZING, #180 NEBULE 0 Refills Nitroglycerin SL (Nitroglycerin SL) 0.4 Mg Subl 0.4 MG SL DIRECTED PRN for CHEST PAIN, #100 TAB.SL 0 Refills ONE TABLET UNDER THE TONGUE NEEDED FOR CHEST PAIN, MAY REPEAT EVERY FIVE MINUTES FOR A TOTAL OF 3 DOSES OR CALL 911 IF NO RELIEF Potassium Chloride ER (Potassium Chloride ER) 10 Meq Tab 10 MEQ PO DAILY Rivaroxaban (Xarelto) 20 Mg Tab 20 MG PO DAILY Discontinued Medications: Cefdinir (Cefdinir) 300 Mg Cap 300 MG PO BID for 10 Days Doxycycline (Monohydrate) (Doxycycline Monohydrate) 100 Mg Tab 100 MG PO BID Metoprolol Tartrate (Metoprolol Tartrate) 100 Mg Tab 100 MG PO BID Additional Information No accepting facility. Discharge to home with home care Per Baca MD Jan 21, 2017 12:43
--- NOTE | 2017-01-21 13:54 | HHI.DS ---
Discharge Summary Admission Date Jan 14, 2017 at 23:57 Admitting Diagnosis Afib with RVR, COPD exacerbation, troponin elevated (1) Acute on chronic congestive heart failure ICD Code: I50.9 - Heart failure, unspecified Diagnosis: Principal (2) COPD exacerbation ICD Code: J44.1 - Chronic obstructive pulmonary disease with (acute) exacerbation Diagnosis: Principal Status: Chronic (3) Elevated troponin ICD Code: R74.8 - Abnormal levels of other serum enzymes Diagnosis: Principal Status: Acute (4) Atrial fibrillation with RVR ICD Code: I48.91 - Unspecified atrial fibrillation Diagnosis: Principal Status: Acute (5) Type 2 diabetes mellitus ICD Code: E11.9 - Type 2 diabetes mellitus without complications Diagnosis: Principal Status: Chronic (6) Wounds, multiple open, lower extremity ICD Code: S81.809A - Unspecified open wound, unspecified lower leg, initial encounter Diagnosis: Principal Status: Chronic Procedures Cardiac catheterization Brief History - From Admission Written by Tatum Miramontes, acting as scribe for Dr. Gilmore on 01/15/17 at 00:37. The patient came into ED in severe respiratory distress and was wheezing on presentation and placed temporarily on BiPAP in ED. He is seen in ER on [place] with improvement in symptoms. The patient was at [facility] in [place] for 4 days for CHF/pneumonia, was discharged 3 days ago. He states he had chest pain, palpitations this morning. The pain radiated down his arms and was accompanied by diaphoresis and shortness of breath. He reports severe dyspnea with minimal exertion. He states he was wheezing all day with "some" cough and mucous production. He reports bilateral lower extremity pain and swelling with bilateral chronic johnson wounds and reddish discoloration from mid-johnson to feet- MRSA +. The patient reports having an IVC filter placed. He says he was given antibiotics at [facility]. Attempted Thoracentesis at [facility] 2 days ago but not enough fluid per patient. He reports nausea and diarrhea x 2 episodes since yesterday. He denies abdominal pain. The patient states he doesn't know what his EF is. records from [facility] show 01/06/17 imaging results - CT PA with no PE, moderate to large right pleural effusion, CXR with pulmonary edema - no echocardiogram noted CBC/BMP: 01/21/17 0521 01/19/17 0347 Significant Findings Laboratory Tests Test 01/18/17 21:42 01/19/17 03:47 01/21/17 05:21 Activated Partial Thromboplast Time 44.5 SEC (24.3-30.1) Random Glucose 181 MG/DL (74-106) 176 MG/DL (74-106) Carbon Dioxide Level 36.5 MEQ/L (21.0-32.0) 32.2 MEQ/L (21.0-32.0) Estimat Glomerular Filtration Rate 83 ML/MIN (>89) White Blood Count 11.4 TH/MM3 (4.0-11.0) Neutrophils (%) (Auto) 83.3 % (16.0-70.0) Neutrophils # (Auto) 9.5 TH/MM3 (1.8-7.7) LDL Cholesterol 114 MG/DL (0-99) HDL Cholesterol 38.9 MG/DL (40.0-60.0) Digoxin Level LESS THAN 0.1 NG/ML Platelet Count 142 TH/MM3 (150-450) PE at Discharge GENERAL: This is an obese, well-developed patient, in no apparent distress. SKIN: Warm and dry. HEENT: Normocephalic. Pupils equal round and reactive. Nose without bleeding. Airway patent. NECK: Trachea midline. No JVD. Supple. CARDIOVASCULAR: Regular rate and rhythm without murmurs, gallops, or rubs. Life Vest in place. RESPIRATORY: Diminished bases. Expiratory wheezes present. GASTROINTESTINAL: Abdomen soft, non-tender, obese. Bowel Sounds normoactive x4. MUSCULOSKELETAL: Extremities without clubbing, cyanosis. BLE +2 edema. NEUROLOGICAL: Awake and alert. Oriented to place, person. No focal neuro deficit. Moves all extremities. Normal speech. Pt Condition on Discharge: Stable Discharge Disposition: Disch w/ Home Health Serv Discharge Instructions DIET: Follow Instructions for: Heart Healthy Diet, Diabetic Diet Activities you can perform: Regular-No Restrictions Activities to Avoid: Driving Per Baca MD Jan 21, 2017 13:54
[2017-01-21] MEDS: RESP: ALBUTEROL 2.5 MG/IPRATROPIUM 0.5 MG NEB (SCH) NEB ×2 (15:17→22:11)
[2017-01-21] MEDS: ATORVASTATIN 40 MG TAB PO SCH (21:47)
[2017-01-22] MEDS: DILTIAZEM HCL 60 MG TAB PO SCH ×3 (00:13→12:29)
[2017-01-22] MEDS: CLINDAMYCIN 150 MG CAP PO SCH ×3 (00:13→12:29)
[2017-01-22] MEDS: ZOLPIDEM TARTRATE 5 MG TAB PO PRN (00:13)
[2017-01-22 00:30] VITALS: BP 141/98; PULSE 109; RESP 19; TEMP 97.3; O2SAT 93
[2017-01-22 04:00] VITALS: BP 116/67; PULSE 99; RESP 20; TEMP 98; O2SAT 96
[2017-01-22] MEDS: ISOSORBIDE MONONITRATE 30 MG TAB PO SCH ×2 (05:13→09:06)
[2017-01-22 08:00] VITALS: BP 133/87; PULSE 106; PULSE 119; RESP 20; TEMP 97.2; O2SAT 94
[2017-01-22] MEDS: INSULIN ASPART SUPPLEMENTAL SCALE SQ SCH ×2 (08:00→12:00)
[2017-01-22] MEDS: RESP: ALBUTEROL 2.5 MG/IPRATROPIUM 0.5 MG NEB (SCH) NEB (08:00)
[2017-01-22] MEDS: BUDESONIDE-FORMOTEROL 160/4.5 MCG INHALER INH SCH (09:00)
[2017-01-22] MEDS: INSULIN ASPART 1,000 UNITS/10 ML VIAL SQ SCH ×2 (09:04→12:00)
[2017-01-22] MEDS: SODIUM CHLORIDE 0.9% FLUSH 10 ML FLUSH IV FLUSH SCH (09:05)
[2017-01-22] MEDS: LACTOBACILLUS ACIDOPHILUS TAB PO SCH ×2 (09:05→12:29)
[2017-01-22] MEDS: SACUBITRIL/VALSARTAN 24 MG-26 MG TAB PO SCH (09:06)
[2017-01-22] MEDS: DOCUSATE SODIUM 50 MG/SENNA 8.6 MG TAB PO SCH (09:06)
[2017-01-22] MEDS: CLOPIDOGREL 75 MG TAB PO SCH (09:06)
[2017-01-22] MEDS: POTASSIUM CHLORIDE 10 MEQ CONTROLLED RELEASE TAB PO SCH (09:06)
[2017-01-22] MEDS: ASPIRIN EC 81 MG TABEC PO SCH (09:06)
[2017-01-22] MEDS: RIVAROXABAN 20 MG TAB PO SCH (09:06)
[2017-01-22] MEDS: FUROSEMIDE 40 MG TAB PO SCH (09:07)
[2017-01-22] MEDS: DIGOXIN 0.25 MG TAB PO SCH (09:07)
--- NOTE | 2017-01-22 11:35 | HHI.PR ---
Subjective Remarks Follow-up CAD and chronic respiratory failure. Patient has no new complaints. He was hoping case management will find a new place for him. Discussed with case management, patient will be discharged today to his previous address. Objective Vitals Vital Signs Date Time Temp Pulse Resp B/P (MAP) Pulse Ox O2 Delivery O2 Flow Rate FiO2 01/22/17 08:00 119 01/22/17 07:00 Nasal Cannula 01/22/17 04:00 97 Nasal Cannula 2.00 01/22/17 04:00 98.0 99 20 116/67 (83) 96 01/22/17 00:30 97.3 109 19 141/98 (112) 93 01/22/17 00:00 97 Nasal Cannula 2.00 01/21/17 22:14 95 Nasal Cannula 2.00 01/21/17 20:00 98.0 101 19 110/66 (81) 95 01/21/17 20:00 97 Nasal Cannula 2.00 01/21/17 20:00 98 01/21/17 16:00 97.8 107 20 103/64 (77) 93 01/21/17 15:21 95 Nasal Cannula 2.00 01/21/17 12:00 98.1 116 18 109/76 (87) 94 I/O 01/21/17 01/21/17 01/21/17 01/22/17 01/22/17 01/22/17 07:00 15:00 23:00 07:00 15:00 23:00 Intake Total 240 ml 540 ml Output Total 451 ml Balance 240 ml 89 ml Intake Oral 240 ml 540 ml Output Urine Total 450 ml Stool Total 1 ml # Voids 2 Result Diagram: 01/21/17 0521 01/19/17 0347 Objective Remarks GENERAL: Morbidly obese male in no acute distress on 2 L nasal cannula SKIN: Bilateral lower extremities with dry dressing CARDIOVASCULAR: Irregularly irregular without murmurs, gallops, or rubs. RESPIRATORY: Decreased breath sounds clear to auscultation GASTROINTESTINAL: Abdomen morbidly obese. Normal active bowel sounds MUSCULOSKELETAL: Bilateral lower extremity with bilateral lower extremity edema covered with dry dressing NEURO: Alert & Oriented x4 to person, place, time, situation. Moves all ext x4 Procedures Cardiac catheterization A/P Problem List: (1) Acute on chronic congestive heart failure ICD Code: I50.9 - Heart failure, unspecified (2) COPD exacerbation ICD Code: J44.1 - Chronic obstructive pulmonary disease with (acute) exacerbation Status: Chronic (3) Elevated troponin ICD Code: R74.8 - Abnormal levels of other serum enzymes Status: Acute (4) Atrial fibrillation with RVR ICD Code: I48.91 - Unspecified atrial fibrillation Status: Acute (5) Type 2 diabetes mellitus ICD Code: E11.9 - Type 2 diabetes mellitus without complications Status: Chronic (6) Wounds, multiple open, lower extremity ICD Code: S81.809A - Unspecified open wound, unspecified lower leg, initial encounter Status: Chronic Assessment and Plan Patient is a 56-year-old male who was recently discharged from another hospital after he was treated for cellulitis, CHF, possible pneumonia. The patient is admitted to [place] for respiratory distress. He was found to be in A. fib with RVR, CHF, and elevated troponin. He also has cellulitis involving bilateral lower extremities. Acute on Chronic systolic CHF with chronic respiratory failure. Improving continue Lasix and Entresto. Wean oxygen to keep saturation at least 92%. - Beta latrice discontinued secondary to wheezing. - LifeVest Cardiac educator. NSVT. Life vest as above COPD exacerbation: Obesity related resp insufficiency. Patient has chronic respiratory failure on home oxygen. Oxygen currently at 2 L. - COPD educator - Duonebulizers QID scheduled and q2h PRN wheezing. Troponin I elevation secondary to CAD -Status post cardiac catheterization with RCA stenting. Continue Plavix for 8 weeks, aspirin and Lipitor. - Beta latrice discontinued secondary to wheezing. Cannot be on MICHOACANO inhibitor on Entresto - Risk factor modification A1c 7.9 and LDL 101 Atrial fibrillation with controlled ventricular response -Status post Cardizem drip -Continue oral Cardizem, digoxin and Xarelto Type 2 DM. Uncontrolled - Restart preprandial Humalog insulin. We will consider long-acting insulin , patient not keen on it. Diabetic education/educator - Accuchecks with SSI - Monitor for hypoglycemia Bilateral lower extremity chronic wounds and Cellulitis. - Wound care physician consulted - + MRSA, contact isolation - Continue clindamycin started January 15. Follow progress. - Patient will benefit from outpatient wound care when discharged. DVT prophylaxis Xarelto Discharge Planning No payor source for rehab Problem Qualifiers (1) Acute on chronic congestive heart failure: Qualified Codes: I50.23 - Acute on chronic systolic (congestive) heart failure (2) Type 2 diabetes mellitus: Qualified Codes: E11.622 - Type 2 diabetes mellitus with other skin ulcer (3) Wounds, multiple open, lower extremity: Qualified Codes: S81.809A - Unspecified open wound, unspecified lower leg, initial encounter Per Baca MD Jan 22, 2017 11:35
--- NOTE | 2017-01-22 11:35 | HHI.PR ---
Subjective Remarks Follow-up CAD. Late entry for 01/21/17 progress notes. Patient was seen yesterday and was anticipated to be discharged thus a discharge summary was prepared but patient did not go as he claimed he didn't have a place to stay. Discussed with RN Objective Vitals Vital Signs Date Time Temp Pulse Resp B/P (MAP) Pulse Ox O2 Delivery O2 Flow Rate FiO2 01/22/17 08:00 119 01/22/17 07:00 Nasal Cannula 01/22/17 04:00 97 Nasal Cannula 2.00 01/22/17 04:00 98.0 99 20 116/67 (83) 96 01/22/17 00:30 97.3 109 19 141/98 (112) 93 01/22/17 00:00 97 Nasal Cannula 2.00 01/21/17 22:14 95 Nasal Cannula 2.00 01/21/17 20:00 98.0 101 19 110/66 (81) 95 01/21/17 20:00 97 Nasal Cannula 2.00 01/21/17 20:00 98 01/21/17 16:00 97.8 107 20 103/64 (77) 93 01/21/17 15:21 95 Nasal Cannula 2.00 01/21/17 12:00 98.1 116 18 109/76 (87) 94 I/O 01/21/17 01/21/17 01/21/17 01/22/17 01/22/17 01/22/17 07:00 15:00 23:00 07:00 15:00 23:00 Intake Total 240 ml 540 ml Output Total 451 ml Balance 240 ml 89 ml Intake Oral 240 ml 540 ml Output Urine Total 450 ml Stool Total 1 ml # Voids 2 Result Diagram: 01/21/17 0521 01/19/17 0347 Objective Remarks GENERAL: Morbidly obese male in no acute distress on 2 L nasal cannula SKIN: Bilateral lower extremities with dry dressing CARDIOVASCULAR: Irregularly irregular without murmurs, gallops, or rubs. RESPIRATORY: Decreased breath sounds clear to auscultation GASTROINTESTINAL: Abdomen morbidly obese. Normal active bowel sounds MUSCULOSKELETAL: Bilateral lower extremity with bilateral lower extremity edema covered with dry dressing NEURO: Alert & Oriented x4 to person, place, time, situation. Moves all ext x4 Procedures Cardiac catheterization A/P Problem List: (1) Acute on chronic congestive heart failure ICD Code: I50.9 - Heart failure, unspecified (2) COPD exacerbation ICD Code: J44.1 - Chronic obstructive pulmonary disease with (acute) exacerbation Status: Chronic (3) Elevated troponin ICD Code: R74.8 - Abnormal levels of other serum enzymes Status: Acute (4) Atrial fibrillation with RVR ICD Code: I48.91 - Unspecified atrial fibrillation Status: Acute (5) Type 2 diabetes mellitus ICD Code: E11.9 - Type 2 diabetes mellitus without complications Status: Chronic (6) Wounds, multiple open, lower extremity ICD Code: S81.809A - Unspecified open wound, unspecified lower leg, initial encounter Status: Chronic Assessment and Plan Patient is a 56-year-old male who was recently discharged from another hospital after he was treated for cellulitis, CHF, possible pneumonia. The patient is admitted to [place] for respiratory distress. He was found to be in A. fib with RVR, CHF, and elevated troponin. He also has cellulitis involving bilateral lower extremities. Acute on Chronic systolic CHF with chronic respiratory failure. Improving continue Lasix and Entresto. Wean oxygen to keep saturation at least 92%. - Beta latrice discontinued secondary to wheezing. - LifeVest Cardiac educator. NSVT. Life vest as above COPD exacerbation: Obesity related resp insufficiency. Patient has chronic respiratory failure on home oxygen. Oxygen currently at 2 L. - COPD educator - Duonebulizers QID scheduled and q2h PRN wheezing. Troponin I elevation secondary to CAD -Status post cardiac catheterization with RCA stenting. Continue Plavix for 8 weeks, aspirin and Lipitor. - Beta latrice discontinued secondary to wheezing. Cannot be on MICHOACANO inhibitor on Entresto - Risk factor modification A1c 7.9 and LDL 101 Atrial fibrillation with controlled ventricular response -Status post Cardizem drip -Continue oral Cardizem, digoxin and Xarelto Type 2 DM. Uncontrolled - Restart preprandial Humalog insulin. We will consider long-acting insulin , patient not keen on it. Diabetic education/educator - Accuchecks with SSI - Monitor for hypoglycemia Bilateral lower extremity chronic wounds and Cellulitis. - Wound care physician consulted - + MRSA, contact isolation - Continue clindamycin started January 15. Follow progress. - Patient will benefit from outpatient wound care when discharged. DVT prophylaxis Xarelto Discharge Planning Stable for discharge Problem Qualifiers (1) Acute on chronic congestive heart failure: Qualified Codes: I50.23 - Acute on chronic systolic (congestive) heart failure (2) Type 2 diabetes mellitus: Qualified Codes: E11.622 - Type 2 diabetes mellitus with other skin ulcer (3) Wounds, multiple open, lower extremity: Qualified Codes: S81.809A - Unspecified open wound, unspecified lower leg, initial encounter Per Baca MD Jan 22, 2017 11:35
[2017-01-22 12:00] VITALS: BP 118/77; PULSE 120; RESP 20; TEMP 97.2; O2SAT 97
--- NOTE | 2017-01-22 16:53 | HHI.FF ---
Face to Face Verification Diagnosis: (1) Respiratory distress (2) Elevated troponin (3) Atrial fibrillation with RVR (4) Type 2 diabetes mellitus (5) Wounds, multiple open, lower extremity Home Health Nursing Order: Medical education Signs/symptoms of disease process Diabetic education Medication education-adverse effect Wound care and dressing changes I have seen patient Bassam Rodriguez on 01/22/17. My clinical findings support the need for the requested home health care services because: Ltd mobility - disease progression Limited ability to care for self I certify that my clinical findings support that this patient is homebound because: Hx COPD- exertion dyspnea/weakness Unsteady gait/balance Judd Abbasi Jr. Jan 22, 2017 16:53
== END 2017-01-22 16:10 | disposition home or self-care (01) | DRG 248 ==
LOC: NEPC 20:56 → NEDA 23:57 → N03B 01-15 04:12 → N04A 01-15 16:44 → HCIS 01-18 15:28 → HCIN 01-18 19:10 → N04A 01-20 23:13
PROVIDERS: ADMIT Internal Medicine; ATTEND Internal Medicine
PROC: 5A09357 Assistance with Respiratory Ventilation, Less than 24 Consecutive Hours, Continuous Positive Airway Pressure (ICD-10-PCS; 2017-01-14)
PROC: 4A023N7 Measurement of Cardiac Sampling and Pressure, Left Heart, Percutaneous Approach (ICD-10-PCS; 2017-01-18)
PROC: B2111ZZ Fluoroscopy of Multiple Coronary Arteries using Low Osmolar Contrast (ICD-10-PCS; 2017-01-18)
PROC: 02703DZ Dilation of Coronary Artery, One Artery with Intraluminal Device, Percutaneous Approach (ICD-10-PCS; principal; 2017-01-18 15:30)
DX: I11.0 Hypertensive heart disease with heart failure (principal); J96.20 Acute and chronic respiratory failure, unspecified whether with hypoxia or hypercapnia; I47.2 Ventricular tachycardia; E11.65 Type 2 diabetes mellitus with hyperglycemia; L03.115 Cellulitis of right lower limb; I42.9 Cardiomyopathy, unspecified; Z68.41 Body mass index [BMI] 40.0-44.9, adult; J44.1 Chronic obstructive pulmonary disease with (acute) exacerbation; L03.116 Cellulitis of left lower limb; I48.2 Chronic atrial fibrillation; I50.23 Acute on chronic systolic (congestive) heart failure; G47.33 Obstructive sleep apnea (adult) (pediatric); F17.210 Nicotine dependence, cigarettes, uncomplicated; E66.01 Morbid (severe) obesity due to excess calories; B95.62 Methicillin resistant Staphylococcus aureus infection as the cause of diseases classified elsewhere; F41.9 Anxiety disorder, unspecified; S81.802A Unspecified open wound, left lower leg, initial encounter; S81.801A Unspecified open wound, right lower leg, initial encounter; I25.10 Atherosclerotic heart disease of native coronary artery without angina pectoris; Z79.01 Long term (current) use of anticoagulants; Z99.81 Dependence on supplemental oxygen; Z79.4 Long term (current) use of insulin
CPT/HCPCS: 71010; 76937; 80048; 80061; 80162; 82550; 82948; 83036; 83605; 83735; 83880; 84443; 84484; 85025; 85027; 85610; 85730; 86850; 86900; 86901; 87040; 90686; 90732; 92928; 93005; 93306; 93458; 94002; 94640; 94664; 96365; 96366; 96375; 99152; 99153; C1725; C1769; C1876; C1887; C1893; J0583; J1160; J1644; J1815; J1940; J2250; J2405; J3010; Q2038; Q9967